=== PATIENT | male | born 1965 | race Two or more races ===

== ENCOUNTER 2016-11-26 10:12 | Emergency (ER) | payer BC ==
[2016-11-26] MEDS ORDERED: NORMAL SALINE 1000 ML 1,000 ML IV PRN (10:23)
--- NOTE | 2016-11-26 10:23 | ER Document Report ---
ED GI/ - General Chief Complaint: Nausea/Vomiting Stated Complaint: DIZZINESS Time Seen by Provider: 11/26/16 10:21 Notes: The patient is a 51-year-old male, past medical history chronic back pain, hypertension, presents with 2 days of nausea, 3 episodes of vomiting and feeling lightheaded. 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 He recently returned from [place] and has been taking hydrocodone and gabapentin he purchased from there. He is also on an unknown blood pressure medication. Patient also having right upper quadrant abdominal pain. Denies fevers, hematemesis, diarrhea, constipation, chest pain, shortness of breath, headache or worsening chronic back pain. - Related Data Allergies/Adverse Reactions: No Known Allergies Allergy (Verified 11/26/16 10:44) Home Medications: Current Home Medications Ergocalciferol (Vitamin D2) [Vitamin D] 1 tab PO DAILY 11/26/16 [History] Gabapentin [Gabapentin] 300 mg PO TID 11/26/16 [History] Lisinopril [Lisinopril] 20 mg PO DAILY 11/26/16 [History] Oxycodone HCl/Acetaminophen [Percocet 10-325 Mg Tablet] 1 each PO QID PRN [History] Pravastatin Sodium [Pravastatin Sodium] 40 mg PO DAILY 11/26/16 [History] Past Medical History - General Information source: Patient - Social History Smoking Status: Unknown if Ever Smoked Family History: Reviewed & Not Pertinent Review of Systems - Review of Systems Notes: REVIEW OF SYSTEMS: CONSTITUTIONAL: -fevers, -chills EENT: -eye pain, -difficulty swallowing, -nasal congestion CARDIOVASCULAR:-chest pain, -syncope. RESPIRATORY: -cough, -SOB GASTROINTESTINAL: +RUQ abdominal pain, +nausea, +vomiting, -diarrhea GENITOURINARY: -dysuria, -hematuria MUSCULOSKELETAL: -back pain, -neck pain SKIN: -rash or skin lesions. HEMATOLOGIC: -easy bruising or bleeding. LYMPHATIC: -swollen, enlarged glands. NEUROLOGICAL: -altered mental status or loss of consciousness, -headache, - neurologic symptoms PSYCHIATRIC: -anxiety, -depression. ALL OTHER SYSTEMS REVIEWED AND NEGATIVE. Physical Exam - Vital signs Vitals: Temp Resp BP Pulse Ox 98.6 F 10 L 117/79 99 11/26/16 10:23 11/26/16 10:23 11/26/16 10:23 11/26/16 10:23 - Notes Notes: PHYSICAL EXAMINATION: GENERAL: Well-appearing, well-nourished and in no acute distress. HEAD: Atraumatic, normocephalic. EYES: Pupils equal round and reactive to light, extraocular movements intact, sclera anicteric, conjunctiva are normal. ENT: nares patent, oropharynx clear without exudates. Moist mucous membranes. NECK: Normal range of motion, supple without lymphadenopathy LUNGS: Breath sounds clear to auscultation bilaterally and equal. No wheezes rales or rhonchi. HEART: Tachycardia. Regular rhythm ABDOMEN: Soft, mild RUQ tenderness, normoactive bowel sounds. No guarding, no rebound. No masses appreciated. EXTREMITIES: Normal range of motion, no pitting or edema. No cyanosis. NEUROLOGICAL: Cranial nerves grossly intact. Normal speech, normal gait. Normal sensory and motor exams. PSYCH: Normal mood, normal affect. SKIN: Warm, Dry, normal turgor, no rashes or lesions noted. Course - Re-evaluation Re-evalutation: Patient appears dehydrated clinically and on labs. With the right upper quadrant abdominal pain, an ultrasound was ordered, which did not show any acute abnormalities. He does have elevated LFTs, which may be related to a hepatitis that he obtained while in [place] because he was having some nausea and vomiting at that time. After 3 L of IV fluids and Zofran, patient feels much better and is able to tolerate fluids. He has an appointment with his primary care physician this week and instructed him to keep the appointment to have his symptoms rechecked and LFTs rechecked. He may need a follow-up at GI. Patient given strict return precautions and he understands. - Vital Signs Vital signs: Temp Pulse Resp BP Pulse Ox 98.6 F 26 H 104/71 97 11/26/16 10:23 11/26/16 13:25 11/26/16 13:25 11/26/16 13:25 - Laboratory Result Diagrams: 11/26/16 10:26 11/26/16 10:26 Laboratory results interpreted by me: 11/26/16 11/26/16 10:26 10:26 RBC 4.18 L Hgb 13.2 L Hct 37.8 L Band Neutrophils % 26 H Lymphocytes % (Manual) 0 L Monocytes % (Manual) 0 L Abs Lymphs (Manual) 0.1 L Abs Monocytes (Manual) 0.0 L Potassium 3.5 L Chloride 109 H Carbon Dioxide 19 L Calcium 7.7 L Direct Bilirubin 0.9 H AST 110 H ALT 126 H Alkaline Phosphatase 184 H Total Protein 5.2 L Albumin 2.7 L - Diagnostic Test Radiology reviewed: Image reviewed, Reports reviewed Radiology results interpreted by me: RUQ US: Normal RUQ Discharge - Discharge Clinical Impression: Elevated LFTs Nausea and vomiting Qualifiers: Vomiting type: unspecified Vomiting Intractability: non-intractable Qualified Code(s): R11.2 - Nausea with vomiting, unspecified Condition: Stable Disposition: HOME, SELF-CARE Additional Instructions: ABDOMINAL PAIN: There are many causes of abdominal pain. Pain can mean a serious problem requiring surgery (such as appendicitis). It can also be an innocent problem that goes away on its own (such as a viral infection). Often, time must pass to determine the cause of pain. The physician does not feel that hospitalization is necessary, at present. Things may change within the next 24 hours. Call the doctor or come back for re- examination if any problems occur, such as: (1) Pain that becomes more severe, steady, or becomes concentrated in one specific area. Also, pain that is more severe with movement or coughing. (2) Vomiting that persists or becomes more frequent. (3) Blood in the vomitus, urine, or bowel movements. Blood in the stool may have a tarry or black appearance. (4) Shaking chills or fever greater than 100 degrees F. (5) The abdomen becomes more distended or swollen. (6) Bowel movements cease. (7) Failure to improve as expected. NORMAL EXAM AND WORKUP: At this time, your examination and workup show no significant abnormality. No significant abnormal physical findings are noted. All laboratory, EKG, and imaging (x-ray, CT scans, ultrasound) studies that were ordered show no significant abnormality. Although your examination and all studies that were ordered showed no significant abnormal finding, there are no examinations and no studies that are 100% accurate. There is always the possibility that some abnormality could exist and not be detected with physical examination or within the limits and capabilities of laboratory and other studies. You should return or follow up as you were instructed on your visit today for further evaluation if your symptoms do not resolve. ANTINAUSEA MEDICATION: You have been given a medication to suppress nausea and vomiting. This type of medication can be given as a shot, pill, or suppository. It will usually last for many hours. Pills and shots usually last six to eight hours, suppositories last about 12 hours. For the typical illness, only one or two doses of the medication may be necessary. Mild lightheadedness may occur. This type of medicine can cause drowsiness. Do not drive or operate dangerous machinery while under its influence. Do not mix with alcohol. See your doctor at once if you have muscle spasms or tightness, or uncontrollable motions (particularly of the neck, mouth, or jaw). Persistent vomiting or severe lightheadedness should also be evaluated by the physician. FOLLOW-UP CARE: If you have been referred to a physician for follow-up care, call the physician s office for an appointment as you were instructed or within the next two days. If you experience worsening or a significant change in your symptoms, notify the physician immediately or return to the Emergency Department at any time for re-evaluation. Prescriptions: Ondansetron [Zofran Odt 4 mg Tablet] 1 - 2 tab PO Q4H PRN #15 tab.rapdis PRN Reason: For Nausea/Vomiting Referrals: AMISH VENTURA MD [Primary Care Provider] - Follow up as needed
[2016-11-26 11:02] LABS: HEMATOCRIT 37.8 % (37.9-51.0); HEMOGLOBIN 13.2 g/dL (13.5-17.0); HGB HCT DIFFERENCE 1.8; MEAN CORPUSCULAR HEMOGLOBIN 31.5 pg (27.0-33.4); MEAN CORPUSCULAR HGB CONC 34.8 g/dL (32.0-36.0); MEAN CORPUSCULAR VOLUME 90 fl (80-97); RED BLOOD COUNT 4.18 10^6/uL (4.35-5.55); RED CELL DISTRIBUTION WIDTH 13.3 % (11.5-14.0); WHITE BLOOD COUNT 6.3 10^3/uL (4.0-10.5)
[2016-11-26 11:30] LABS: ALANINE AMINOTRANSFERASE 126 U/L (21-72); ALBUMIN 2.7 g/dL (3.5-5.0); ALKALINE PHOSPHATASE 184 U/L (38-126); ANION GAP 10 (5-19); ASPARTATE AMINO TRANSFERASE 110 U/L (17-59); BILIRUBIN,DIRECT 0.9 mg/dL (0.0-0.4); BILIRUBIN,TOTAL 0.9 mg/dL (0.2-1.3); BLOOD UREA NITROGEN 18 mg/dL (7-20); CALCIUM 7.7 mg/dL (8.4-10.2); CARBON DIOXIDE 19 mmol/L (22-30); CHLORIDE 109 mmol/L (98-107); CREATININE RESULT 0.79 mg/dL (0.52-1.25); GLUCOSE 110 mg/dL (75-110); POTASSIUM 3.5 mmol/L (3.6-5.0); SODIUM 137.8 mmol/L (137-145); TOTAL PROTEIN 5.2 g/dL (6.3-8.2)
--- NOTE | 2016-11-26 11:41 | RADIOLOGY REPORT (SQ) ---
EXAM DESCRIPTION: U/S ABDOMEN LIMITED W/O DOP COMPLETED DATE/TIME: 11/26/2016 11:30 am REASON FOR STUDY: RUQ tenderness, nausea and vomiting COMPARISON: None. TECHNIQUE: Dynamic and static grayscale images acquired of the abdomen and recorded on PACS. Additio nal selected color Doppler and spectral images recorded. LIMITATIONS: None. FINDINGS: PANCREAS: No masses. Visualized pancreatic duct normal caliber. LIVER: No masses. Echotexture normal. LIVER VASCULATURE: Normal directional flow of the main portal vein and hepatic veins. GALLBLADDER: No stones. Normal wall thickness. No pericholecystic fluid. ULTRASOUND-DETECTED LONG'S SIGN: Negative. INTRAHEPATIC DUCTS AND COMMON DUCT: CBD and intrahepatic ducts normal caliber. No filling defects. INFERIOR VENA CAVA: Normal flow. AORTA: No aneurysm. RIGHT KIDNEY: Normal size. Normal echogenicity. No solid or suspicious masses. No hydronephrosis. No calcifications. PERITONEAL AND RIGHT PLEURAL SPACE: No ascites or effusions. OTHER: No other significant findings. IMPRESSION: NORMAL RIGHT UPPER QUADRANT ULTRASOUND. TECHNICAL DOCUMENTATION: JOB ID: [id number] [employer]- All Rights Reserved
[2016-11-26 11:48] LABS: BASOPHILS % (MANUAL) 0 % (0-2); EOSINOPHILS % (MANUAL) 0 % (0-6); LYMPHOCYTES % (MANUAL) 0 % (13-45); TOTAL CELLS COUNTED 100
[2016-11-26 11:50] LABS: RBC MORPHOLOGY COMMENT NORMO-CYTIC/CHROMIC; TOXIC GRANULATION SLIGHT; TOXIC VACUOLATION PRESENT
[2016-11-26 11:56] LABS: BAND NEUTROPHILS % (MANUAL) 26 % (3-5)
[2016-11-26 13:32] VITALS: BP 104/71
--- NOTE | 2016-11-26 16:22 | EKG REPORT ---
SEVERITY:- OTHERWISE NORMAL ECG - SINUS TACHYCARDIA : Confirmed by: Lindsey Bhatt MD 26-Nov-2016 16:21:49
[2016-11-27 11:20] LABS: PATH REVIEW PATHOLOGIST REVIEWED
== END 2016-11-26 13:38 | disposition home or self-care (01) ==
LOC: ER 10:12
DX: R11.2 Nausea with vomiting, unspecified (principal); R79.89 Other specified abnormal findings of blood chemistry; R10.11 Right upper quadrant pain; R42 Dizziness and giddiness; I10 Essential (primary) hypertension; Z79.899 Other long term (current) drug therapy
CPT/HCPCS: 93005; 99285; 96360; 96361; 36415; 85025; 80053; 80074; 76705; 93010; J7030

== ENCOUNTER 2016-11-28 03:08 | Inpatient (IN) | payer BC ==
[2016-11-28] MEDS ORDERED: NORMAL SALINE 1000 ML 1,000 ML IV ONE ×2 (03:31→10:15)
--- NOTE | 2016-11-28 03:31 | ER Document Report ---
ED General - General Mode of Arrival: Medic Information source: Patient - HPI Onset: Other - Refer to HPI Ntoes <GRICELDA SMALL - Last Filed: 11/28/16 04:13> <ELIZABETH UGALDE - Last Filed: 11/28/16 06:28> <ALBERT ROBERT Chuyita - Last Filed: 11/28/16 10:51> - General Stated Complaint: ABDOMINAL PAIN/VOMITING Time Seen by Provider: 11/28/16 03:17 Notes: Patient is a 51-year-old male presenting to the emergency department for nausea , vomiting, diarrhea and fever. Patient symptoms onset Thursday and patient was evaluated in this facility on Thursday. On Thursday the patient had a normal right upper quadrant ultrasound was given fluids. Patient states on he had some dizziness, vomiting and diarrhea. Patient states 2:00 this morning he had fever, chills, shaking and feeling shortness of breath. Patient states that he has been taking Zofran for nausea which is changing his stools from "black clumps to green." Patient was brought in via EMS with a temperature of 102.8 F. Patient was given Tylenol and Zofran. Patient did recently travel to [place] from October 16 to November 02 when he was visiting his family. Patient did see a physician in [place] who gave him a "shot" and he was also told by another physician that he had an episode of gastritis. Patient has a history of osteo arthritis, chronic back pain, and hypertension. (GRICELDA SMALL) - Related Data Allergies/Adverse Reactions: No Known Allergies Allergy (Verified 11/26/16 10:44) Past Medical History - General Information source: Patient - Social History Smoking Status: Current Every Day Smoker Chew tobacco use (# tins/day): No Smoking Education Provided: No Frequency of alcohol use: None Drug Abuse: None Family History: None Patient has suicidal ideation: No Patient has homicidal ideation: No - Past Medical History Cardiac Medical History: Reports: Hx Hypertension Musculoskeltal Medical History: Reports Hx Arthritis - OA, Reports Other - chronic back pain Surgical Hx: Negative <GRICELDA SMALL - Last Filed: 11/28/16 04:13> Review of Systems - Review of Systems Constitutional: See HPI, Chills, Diaphoresis, Fever EENT: No symptoms reported Cardiovascular: No symptoms reported Respiratory: No symptoms reported Gastrointestinal: See HPI, Abdominal pain, Diarrhea, Nausea, Vomiting, Black stools Genitourinary: No symptoms reported Male Genitourinary: No symptoms reported Musculoskeletal: See HPI, Back pain Skin: No symptoms reported Hematologic/Lymphatic: No symptoms reported Neurological/Psychological: No symptoms reported -: Yes All other systems reviewed and negative <GRICELDA SMALL - Last Filed: 11/28/16 04:13> Physical Exam - Vital signs Interpretation: Normal <STACIGRICELDA - Last Filed: 11/28/16 04:13> <ELIZABETH UGALDE - Last Filed: 11/28/16 06:28> <ALBERT ROBERT Chuyita - Last Filed: 11/28/16 10:51> - Vital signs Vitals: Resp BP Pulse Ox 41 H 112/68 95 11/28/16 03:16 11/28/16 03:16 11/28/16 03:16 - Notes Notes: GENERAL: Alert, interacts well, appears uncomfortable, diaphoretic, tachycardia. HEAD: Normocephalic, atraumatic. EYES: Appear normal. Pupils equal, round, and reactive to light. ENT: Moist mucus membranes, tongue midline. NECK: Full range of motion. Supple. Trachea midline. LUNGS: Clear to auscultation bilaterally, no wheezes, rales, or rhonchi. No respiratory distress. 96% O2 saturation on room air. HEART: Tachycardia. Regular rhythm. No murmurs, gallops, or rubs. ABDOMEN: Soft, Right-sided abdominal tenderness to palpation. Distended. Normal bowel sounds. Dull to percussion over the liver. EXTREMITIES: Moves all 4 extremities spontaneously. Normal strength. No edema. NEUROLOGICAL: Alert and oriented x3. Normal speech. No focal neurological deficits. GSC 15. PSYCH: Normal affect, normal mood. SKIN: Warm, diaphoretic, normal turgor. No rashes or lesions noted. (GRICELDA SMALL) Course - Laboratory Result Diagrams: 11/28/16 03:20 11/28/16 03:20 <GILLIANGRICELDA ESPINOZA - Last Filed: 11/28/16 04:13> - Laboratory Result Diagrams: 11/28/16 03:20 11/28/16 03:20 - Diagnostic Test Radiology reviewed: Reports reviewed - Acute abdominal series is unremarkable other than the dilated loop of jejunum - EKG Interpretation by Me EKG shows normal: Sinus rhythm, [place], Intervals, QRS Complexes, ST-T Waves Rate: Tachycardia - 128 When compared to previous EKG there are: No significant change - Transfer of Care Care transferred to following provider: Dr. Robert <ELIZABETH UGALDE - Last Filed: 11/28/16 06:28> - Laboratory Result Diagrams: 11/28/16 03:20 11/28/16 03:20 - Diagnostic Test Radiology reviewed: Image reviewed, Reports reviewed <ALBERT ROBERT - Last Filed: 11/28/16 10:51> - Re-evaluation Re-evalutation: 11/28/16 06:25: Signout from Dr. Ugalde: 51 yo male seen by myself 2 days ago. Patient initially with nausea and vomiting that was under control. However it worsened he started having worsening diarrhea and lower abdominal pain. CT abdomen and pelvis pending. 09:45 CT A/P with evidence of sigmoid diverticulitis and pericholecystic fluid around the gallbladder, which may be related to acalculus cholecystitis. A HIDA scan is recommended. Patient's RUQ ultrasound completed 2 days ago was normal. Will begin Zosyn and obtain HIDA scan. Pt's pain is under control. 11/28/16 10:[address] Elise and will admit patient as Inpatient to Telemetry for further evaluation and treatment of his sigmoid diverticulitis, right upper quadrant pain, nausea and vomiting. (ALBERT ROBERT) - Vital Signs Vital signs: Temp Pulse Resp BP Pulse Ox 97.8 F 20 109/83 99 11/28/16 07:00 11/28/16 10:01 11/28/16 10:00 11/28/16 10:01 - Laboratory Laboratory results interpreted by me: 11/28/16 11/28/16 11/28/16 03:20 03:20 04:38 RBC 3.65 L Hgb 11.4 L Hct 32.6 L Plt Count 132 L Band Neutrophils % 35 H Lymphocytes % (Manual) 3 L Abs Lymphs (Manual) 0.2 L Sodium 136.8 L Potassium 3.5 L Chloride 109 H Carbon Dioxide 19 L Glucose 145 H Calcium 7.9 L Total Bilirubin 3.0 H Direct Bilirubin 2.6 H ALT 85 H Alkaline Phosphatase 240 H Total Protein 5.0 L Albumin 2.6 L Urine Protein 30 H Urine Blood MODERATE H Urine Bilirubin MODERATE H Urine Urobilinogen 4.0 H Stool for White Cells 11/28/16 05:57 RBC Hgb Hct Plt Count Band Neutrophils % Lymphocytes % (Manual) Abs Lymphs (Manual) Sodium Potassium Chloride Carbon Dioxide Glucose Calcium Total Bilirubin Direct Bilirubin ALT Alkaline Phosphatase Total Protein Albumin Urine Protein Urine Blood Urine Bilirubin Urine Urobilinogen Stool for White Cells MODERATE H - Diagnostic Test Radiology results interpreted by me: CT A/P: IMPRESSION: 1. SIGMOID DIVERTICULITIS. A FEW BUBBLES OF GAS ARE PRESENT IN THE MESENTERIC VEIN DRAINING THE SIGMOID COLON LIKELY SECONDARY TO INFLAMMATORY PROCESS IN THE SIGMOID. NO EVIDENCE OF ABSCESS AT THIS TIME. 2. FAIRLY PROMINENT PERICHOLECYSTIC FLUID AROUND THE GALLBLADDER. RECENT ULTRASOUND SHOWED NO GALLSTONES. THIS COULD BE PASSIVE CONGESTION OR COULD BE DUE TO ACALCULOUS CHOLECYSTITIS. FOLLOW- UP HEPATOBILIARY SCAN MAY BE HELPFUL FOR FURTHER EVALUATION. 3. SLIGHTLY HETEROGENOUS APPEARANCE OF THE LIVER. THIS COULD BE DUE TO ACUTE INFLAMMATION OR UNDERLYING CHRONIC LIVER DISEASE. RECOMMEND CLINICAL CORRELATION AND FOLLOW-UP MRI OF THE LIVER MAY BE CONSIDERED. (ALBERT ROBERT) - Transfer of Care Notes: 11/28/16 06:29 Disposition is pending with stool WBCs and C. difficile pending and CT scan of abdomen pelvis with contrast is pending. (ELIZABETH UGALDE) Discharge <GRICELDA SMALL - Last Filed: 11/28/16 04:13> <ELIZABETH UGALDE - Last Filed: 11/28/16 06:28> - Discharge Admitting Provider: [facility] Ad[facility]: Telemetry <ALBERT ROBERT - Last Filed: 11/28/16 10:51> - Discharge Clinical Impression: Nausea, vomiting and diarrhea, Bandemia, Elevated direct bilirubin, Metabolic acidosis, Sigmoid diverticulitis Abdominal pain Qualifiers: Abdominal location: upper abdomen, unspecified Qualified Code(s): R10.10 - Upper abdominal pain, unspecified Anemia Qualifiers: Anemia type: unspecified type Qualified Code(s): D64.9 - Anemia, unspecified Hematuria Qualifiers: Hematuria type: other microscopic Qualified Code(s): R31.29 - Other microscopic hematuria Abdominal pain Qualifiers: Abdominal location: upper abdomen, unspecified Qualified Code(s): R10.10 - Upper abdominal pain, unspecified Condition: Stable Disposition: ADMITTED INPATIENT Scribe Attestation: 11/28/16 06:30 I personally performed the services described in the documentation, reviewed and edited the documentation which was dictated to the scribe in my presence, and it accurately records my words and actions. (ELIZABETH UGALDE) Scribe Documentation - Scribe Written by Scribe:: Mike Butt 11/28/2016 4:14 acting as scribe for :: Mike <GRICELDA SMALL - Last Filed: 11/28/16 04:13>
[2016-11-28 03:51] LABS: HEMATOCRIT 32.6 % (37.9-51.0); HEMOGLOBIN 11.4 g/dL (13.5-17.0); HGB HCT DIFFERENCE 1.6; MEAN CORPUSCULAR HEMOGLOBIN 31.2 pg (27.0-33.4); MEAN CORPUSCULAR VOLUME 89 fl (80-97); RED BLOOD COUNT 3.65 10^6/uL (4.35-5.55); RED CELL DISTRIBUTION WIDTH 13.3 % (11.5-14.0); WHITE BLOOD COUNT 5.4 10^3/uL (4.0-10.5)
[2016-11-28 04:08] LABS: ALANINE AMINOTRANSFERASE 85 U/L (21-72); ALBUMIN 2.6 g/dL (3.5-5.0); ALKALINE PHOSPHATASE 240 U/L (38-126); ANION GAP 9 (5-19); ASPARTATE AMINO TRANSFERASE 46 U/L (17-59); BILIRUBIN,DIRECT 2.6 mg/dL (0.0-0.4); BLOOD UREA NITROGEN 14 mg/dL (7-20); CALCIUM 7.9 mg/dL (8.4-10.2); CARBON DIOXIDE 19 mmol/L (22-30); CHLORIDE 109 mmol/L (98-107); CREATINE KINASE 108 U/L (55-170); CREATININE RESULT 0.72 mg/dL (0.52-1.25); GLUCOSE 145 mg/dL (75-110); LIPASE 76.6 U/L (23-300); MAGNESIUM 1.6 mg/dL (1.6-2.3); POTASSIUM 3.5 mmol/L (3.6-5.0); SODIUM 136.8 mmol/L (137-145)
[2016-11-28 04:13] LABS: BAND NEUTROPHILS % (MANUAL) 35 % (3-5); BASOPHILS % (MANUAL) 0 % (0-2); EOSINOPHILS % (MANUAL) 0 % (0-6); LYMPHOCYTES % (MANUAL) 3 % (13-45); TOTAL CELLS COUNTED 100
[2016-11-28 04:17] LABS: POIKILOCYTOSIS SLIGHT; SCHISTOCYTES SLIGHT; TOXIC GRANULATION SLIGHT; TOXIC VACUOLATION PRESENT
[2016-11-28] MEDS ORDERED: VANCOMYCIN HCL INJ 1000 MG VIAL IV ONE (04:29)
[2016-11-28 05:05] LABS: APPEARANCE,URINE CLEAR; BILIRUBIN,URINE MODERATE (NEGATIVE); GLUCOSE, URINE NEGATIVE (NEGATIVE); KETONES,URINE NEGATIVE (NEGATIVE); LEUKOCYTE ESTERASE,URINE NEGATIVE (NEGATIVE); NITRITE,URINE NEGATIVE (NEGATIVE); PROTEIN,URINE 30 mg/dL (NEGATIVE); URINE SPECIFIC GRAVITY 1.015
--- NOTE | 2016-11-28 05:18 | RADIOLOGY REPORT (SQ) ---
EXAM DESCRIPTION: ACUTE ABDOMEN SERIES COMPLETED DATE/TIME: 11/28/2016 4:53 am REASON FOR STUDY: N,V,D, FEVER, RIGHT ABD PAIN COMPARISON: Ultrasound, same day. NUMBER OF VIEWS: Three views. TECHNIQUE: Frontal chest, supine abdomen and upright/decubitus abdomen radiographic images acquired. LIMITATIONS: None. FINDINGS: CHEST: Lungs clear of infiltrates. Pulmonary vascular congestion. FREE AIR: None. No abnormal gas collections. BOWEL GAS PATTERN: Nonobstructive pattern. Single gas dilated jejunal loop measures 3.2 cm in diamet er. CALCIFICATIONS: No suspicious calcifications. HARDWARE: None in the abdomen. SOFT TISSUES: No gross mass or suggestion of organomegaly. BONES: No acute fracture. No worrisome bone lesions. Mild lumbar dextro convexity. Mild lumbar dis c desiccation. OTHER: No other significant finding. IMPRESSION: NO RADIOGRAPHIC EVIDENCE FOR ACUTE ABDOMINAL DISEASE. TECHNICAL DOCUMENTATION: JOB ID: [id number] [employer]- All Rights Reserved
[2016-11-28] MEDS ORDERED: MORPHINE SULFATE 10 MG/ML INJ IV ONE ×2 (05:59→08:46)
[2016-11-28] MEDS ORDERED: ONDANSETRON HCL INJ/PF 4 MG/2 ML SDV IV ONE (05:59)
--- NOTE | 2016-11-28 08:53 | RADIOLOGY REPORT (SQ) ---
EXAM DESCRIPTION: CT ABD/PELVIS WITH IV ORAL COMPLETED DATE/TIME: 11/28/2016 8:28 am REASON FOR STUDY: DILATED LOOP JEJUNUM, FEVER, 35%BANDS, N,V,D COMPARISON: Abdominal ultrasound dated 11/26/2016. Abdominal x-ray dated 11/28/2016. TECHNIQUE: CT scan of the abdomen and pelvis performed using helical scanning technique with dynamic intravenous contrast injection. No oral contrast. Images reviewed with lung, soft tissue, and bone windows. Reconstructed coronal and sagittal MPR images reviewed. Delayed images for evaluation of the urinary system also acquired. All images stored on PACS. All CT scanners at this facility use dose modulation, iterative reconstruction, and/or weight based d osing when appropriate to reduce radiation dose to as low as reasonably achievable (ALARA). [facility]: Dose Right [facility]: CareDose [facility]: Dose Right [facility]: Teradose 4D [facility]: [email or web address] CONTRAST TYPE AND DOSE: contrast/concentration: Isovue 370.00 mg/ml; Total Contrast Delivered: 78.0 ml; Total Saline Delivered: 67.0 ml RENAL FUNCTION: BUN 14 creatinine 0.72. RADIATION DOSE: Up-to-date CT equipment and radiation dose reduction techniques were employed. CTDIv ol: 6.2 - 7.1 mGy. DLP: 653 mGy-cm.. LIMITATIONS: None. FINDINGS: LOWER CHEST: No significant findings. No nodules or infiltrates. LIVER: Normal size. Slightly heterogenous appearance of the liver. No focal masses. No dilated kayla ts. SPLEEN: Normal size. No focal lesions. PANCREAS: No masses. No significant calcifications. No adjacent inflammation or peripancreatic fluid collections. Pancreatic duct not dilated. GALLBLADDER: No identified stones by CT criteria. Pericholecystic fluid is present. ADRENAL GLANDS: No significant masses or asymmetry. RIGHT KIDNEY AND URETER: No solid masses. No significant calcifications. No hydronephrosis or hyd roureter. LEFT KIDNEY AND URETER: No solid masses. No significant calcifications. No hydronephrosis or hydr oureter. AORTA AND VESSELS: No aneurysm. No dissection. Renal arteries, SMA, celiac without stenosis. RETROPERITONEUM: No retroperitoneal adenopathy, hemorrhage or masses. BOWEL AND PERITONEAL CAVITY: Contrast in the small bowel and colon. Diverticuli in the descending an d sigmoid colon with mild inflammation in the soft tissues adjacent to the sigmoid colon. There are a few bubbles of gas in the mesenteric vein draining the sigmoid colon. No abnormal fluid collection s. No free fluid or peritoneal masses. APPENDIX: Normal. PELVIS: No mass. No free fluid. Normal bladder. ABDOMINAL WALL: No masses. No hernias. BONES: No significant or acute findings. OTHER: No other significant finding. IMPRESSION: 1. SIGMOID DIVERTICULITIS. A FEW BUBBLES OF GAS ARE PRESENT IN THE MESENTERIC VEIN DRAINING THE SIGM OID COLON LIKELY SECONDARY TO INFLAMMATORY PROCESS IN THE SIGMOID. NO EVIDENCE OF ABSCESS AT THIS TI ME. 2. FAIRLY PROMINENT PERICHOLECYSTIC FLUID AROUND THE GALLBLADDER. RECENT ULTRASOUND SHOWED NO GALLST ONES. THIS COULD BE PASSIVE CONGESTION OR COULD BE DUE TO ACALCULOUS CHOLECYSTITIS. FOLLOW-UP HEPAT OBILIARY SCAN MAY BE HELPFUL FOR FURTHER EVALUATION. 3. SLIGHTLY HETEROGENOUS APPEARANCE OF THE LIVER. THIS COULD BE DUE TO ACUTE INFLAMMATION OR UNDERLY ING CHRONIC LIVER DISEASE. RECOMMEND CLINICAL CORRELATION AND FOLLOW-UP MRI OF THE LIVER MAY BE CONS IDERED. TECHNICAL DOCUMENTATION: JOB ID: [id number] Quality ID # [id number]: Final reports with documentation of one or more dose reduction techniques (e.g., Au tomated exposure control, adjustment of the mA and/or kV according to patient size, use of iterative reconstruction technique) 2010 [employer]- All Rights Reserved
[2016-11-28] MEDS ORDERED: PIPERACILLIN/TAZOBACTAM 3.375 GM VIAL IV ONE (10:15)
[2016-11-28] MEDS ORDERED: KETOROLAC TROMETHAMINE INJ/PF 30 MG/1 ML SDV IV ONE (10:56)
[2016-11-28] MEDS ORDERED: KETOROLAC TROMETHAMINE INJ/PF 30 MG/1 ML SDV ONE (11:00)
[2016-11-28] MEDS ORDERED: IPRATROPIUM/ALBUTEROL 0.5-2.5 MG/3 ML AMPUL NEB ONE ×2 (11:03→12:03)
[2016-11-28] MEDS ORDERED: METHYLPREDNISOLONE INJ 125 MG/2 ML SDV ONE (11:08)
[2016-11-28] MEDS ORDERED: EPINEPHRINE INJ/PF 1 MG/1 ML AMPULE ONE (11:08)
--- NOTE | 2016-11-28 11:28 | RADIOLOGY REPORT (SQ) ---
EXAM DESCRIPTION: CHEST SINGLE VIEW COMPLETED DATE/TIME: 11/28/2016 11:16 am REASON FOR STUDY: er 18 chest pain COMPARISON: None. EXAM PARAMETERS: NUMBER OF VIEWS: One view. TECHNIQUE: Single frontal radiographic view of the chest acquired. RADIATION DOSE: NA LIMITATIONS: None. FINDINGS: LUNGS AND PLEURA: No opacities, masses or pneumothorax. No pleural effusion. MEDIASTINUM AND HILAR STRUCTURES: No masses. Contour normal. HEART AND VASCULAR STRUCTURES: Heart normal in size. Normal vasculature. BONES: No acute findings. HARDWARE: None in the chest. OTHER: No other significant finding. IMPRESSION: NO ACUTE RADIOGRAPHIC FINDING IN THE CHEST. TECHNICAL DOCUMENTATION: JOB ID: [id number]
[2016-11-28] MEDS ORDERED: METHYLPREDNISOLONE INJ 125 MG/2 ML SDV IV ONE (12:03)
--- NOTE | 2016-11-28 12:15 | EKG REPORT ---
SEVERITY:- ABNORMAL ECG - SINUS TACHYCARDIA VERSUS SVT.BASELINE ARTIFACT.REPEAT EKG : Confirmed by: Lindsey Bhatt MD 28-Nov-2016 12:15:28
--- NOTE | 2016-11-28 12:16 | EKG REPORT ---
SEVERITY:- BORDERLINE ECG - SINUS TACHYCARDIA CONSIDER RIGHT VENTRICULAR HYPERTROPHY : Confirmed by: Lindsey Bhatt MD 28-Nov-2016 12:15:38
--- NOTE | 2016-11-28 12:55 | RADIOLOGY REPORT (SQ) ---
EXAM DESCRIPTION: CT ABD/PELVIS NO ORAL OR IV COMPLETED DATE/TIME: 11/28/2016 11:36 am REASON FOR STUDY: worsening severe pain, tachycardia COMPARISON: 11/28/2016. TECHNIQUE: CT scan of the abdomen and pelvis performed without intravenous or oral contrast. Images reviewed with lung, soft tissue, and bone windows. Reconstructed coronal and sagittal MPR images revi ewed. All images stored on PACS. All CT scanners at this facility use dose modulation, iterative reconstruction, and/or weight based d osing when appropriate to reduce radiation dose to as low as reasonably achievable (ALARA). [facility]: Dose Right [facility]: CareDose [facility]: Dose Right [facility]: Teradose 4D [facility]: Smart [employer] RADIATION DOSE: Up-to-date CT equipment and radiation dose reduction techniques were employed. CTDIv ol: 7.0 mGy. DLP: 360 mGy-cm.mGy. LIMITATIONS: None. FINDINGS: LOWER CHEST: No significant findings. No nodules or infiltrates. NON-CONTRASTED LIVER, SPLEEN, ADRENALS: Evaluation limited by lack of IV contrast. No identified sign ificant masses. There is a small amount of portal venous gas in the left lobe of the liver. PANCREAS: No masses. No peripancreatic inflammatory changes. GALLBLADDER: Contracted gallbladder with ill-defined wall thickening. RIGHT KIDNEY AND URETER: No suspicious masses. Assessment limited by lack of IV contrast. No signif icant calcifications. No hydronephrosis or hydroureter. LEFT KIDNEY AND URETER: No suspicious masses. Assessment limited by lack of IV contrast. No signifi cant calcifications. No hydronephrosis or hydroureter. AORTA AND RETROPERITONEUM: No aneurysm. No retroperitoneal masses or adenopathy. BOWEL AND PERITONEAL CAVITY: Again seen are numerous diverticuli in the descending and sigmoid colon with mild focal inflammation in the sigmoid colon. Also again seen is gas in the mesenteric vein noemi ining the sigmoid colon. No free air. APPENDIX: Normal. PELVIS, BLADDER, AND ABDOMINAL WALL:No abnormal masses. No free fluid. Bladder normal. BONES: No significant findings. OTHER: No other significant finding. IMPRESSION: 1. SIGMOID DIVERTICULITIS. SMALL AMOUNT OF GAS IS PRESENT IN THE MESENTERIC VEIN DRAINING THE SIGMOI D COLON, SIMILAR TO THE PREVIOUS STUDY, LIKELY DUE TO BOWEL INFLAMMATION/INFECTION. ALSO SMALL AMOUN T OF PORTAL VENOUS GAS IN THE LIVER RELATED TO THIS FINDING. NO FREE AIR OR OTHER ACUTE CHANGES. 2. CONTRACTED GALLBLADDER WITH GALLBLADDER WALL THICKENING. THE PATIENT IS SCHEDULED FOR HEPATOBILIA RY SCAN TO DETERMINE IF THERE MAY BE FINDINGS TO INDICATE CHOLECYSTITIS. 3. NO OTHER SIGNIFICANT OR ACUTE PROCESS IN THE ABDOMEN OR PELVIS. TECHNICAL DOCUMENTATION: JOB ID: [id number] Quality ID # [id number]: Final reports with documentation of one or more dose reduction techniques (e.g., Au tomated exposure control, adjustment of the mA and/or kV according to patient size, use of iterative reconstruction technique) 2010 [employer]- All Rights Reserved
[2016-11-28] MEDS ORDERED: DEXTROSE 50%-WATER 25 GM/50 ML DISP.SYRIN IV PRN ×2 (14:46)
[2016-11-28] MEDS ORDERED: ACETAMINOPHEN 325 MG TABLET PO PRN (14:46)
[2016-11-28] MEDS ORDERED: DEXTROSE 40% GEL 15 GM TUBE PO PRN ×2 (14:46)
[2016-11-28] MEDS ORDERED: GLUCAGON,HUMAN RECOMB 1 MG INJ SUBCUT PRN (14:46)
[2016-11-28] MEDS ORDERED: ONDANSETRON HCL INJ/PF 4 MG/2 ML SDV IV PRN (14:52)
--- NOTE | 2016-11-28 15:16 | PDOC H&P ---
History of Present Illness Admission Date/PCP: 11/28/16 10:56 Patient complains of: Abdominal pain History of Present Illness: MONAE SORTO is a 51 year old male, with history of hypertension and osteoarthritis who recently traveled to [place] attending his son's graduation late last month presents to the hospital because of nausea vomiting and abdominal pain 4 days duration. Patient reports while in [place] patient had an episode of gastritis where he was treated with injectable medications and was discharged home. He did not have any diarrhea at this time. He denies intake of raw meat or vegetables. Likewise he denies being exposed to someone sick with her diarrhea. He also had no history of melena hematochezia or hematemesis at that time. Patient went back to the [place] early this month and went back to routine work where he started to develop abdominal pain with associated nausea vomiting and diarrhea 4 days duration. There is associated chills and fever as well. No one sick with diarrhea at home. There was no intake of leftover foods. Patient denies being on antibiotic recently. He denies any noticeable blood. The patient symptoms got worse today and therefore presents to the emergency room order CT of the abdomen and pelvis revealed diverticulitis. Patient received a dose of vancomycin intravenously thinking it was Clostridium difficile colitis. No other antibiotics were administered. Reportedly the patient developed shortness of breath but on questioning the patient prior to the episode he had severe abdominal pain and cramps with associated nausea and gagging and eventually started getting short of breath. Patient was noted to have some wheezing and therefore thought he was having allergic reaction. He was given nebulizers and steroids and his symptoms resolved. He was then referred for admission. Past Medical History Past Medical History: Medication reconciliation pending verification from the patient's pharmacist. Cardiac Medical History: Reports: Hypertension Musculoskeltal Medical History: Reports: Arthritis - OA, Other - chronic back pain Past Surgical History Past Surgical History: Reports: None Social History Information Source: Patient Smoking Status: Current Every Day Smoker Hx Recreational Drug Use: No Drugs: None Family History Family History: Arthritis - Arthritis, Other - Gastrointestinal conditions Parental Family History Reviewed: Yes Children Family History Reviewed: Yes Sibling(s) Family History Reviewed.: Yes Medication/Allergy Home Medications: Unobtainable [Unobtainable] 11/28/16 Allergies/Adverse Reactions: No Known Allergies Allergy (Verified 11/26/16 10:44) Review of Systems Constitutional: PRESENT: chills, fever(s). ABSENT: headache(s), weight gain, weight loss Eyes: ABSENT: visual disturbances Ears: ABSENT: hearing changes Nose, Mouth, and Throat: ABSENT: mouth pain, sore throat Cardiovascular: ABSENT: chest pain, dyspnea on exertion, edema, orthropnea, palpitations Respiratory: ABSENT: cough, dyspnea, hemoptysis, sputum Gastrointestinal: PRESENT: abdominal pain, diarrhea, nausea, vomiting. ABSENT: coffee ground emesis, constipation, hematemesis, hematochezia, melena Genitourinary: ABSENT: difficulty urinating, dysuria, hematuria Musculoskeletal: ABSENT: back pain, joint swelling Integumentary: ABSENT: pruritus, rash, wounds Neurological: ABSENT: abnormal gait, abnormal speech, confusion, dizziness, focal weakness, syncope Psychiatric: ABSENT: anxiety, depression, homidical ideation, suicidal ideation Endocrine: ABSENT: cold intolerance, heat intolerance, polydipsia, polyuria Hematologic/Lymphatic: ABSENT: easy bleeding, easy bruising Physical Exam Vital Signs: Temp Pulse Resp BP Pulse Ox 97.4 F 30 H 102/62 96 11/28/16 10:48 11/28/16 12:13 11/28/16 12:13 11/28/16 12:13 General appearance: PRESENT: no acute distress, obese - Overweight Head exam: PRESENT: atraumatic, normocephalic Eye exam: PRESENT: conjunctiva pink, EOMI, PERRLA. ABSENT: scleral icterus Ear exam: PRESENT: normal external ear exam. ABSENT: drainage Mouth exam: PRESENT: moist, neck supple, tongue midline Throat exam: ABSENT: post pharyngeal erythema, tonsillar erythema Neck exam: ABSENT: carotid bruit, full ROM, JVD, lymphadenopathy, thyromegaly Respiratory exam: PRESENT: clear to auscultation tori. ABSENT: rales, rhonchi, wheezes Cardiovascular exam: PRESENT: RRR. ABSENT: diastolic murmur, rubs, systolic murmur Pulses: PRESENT: normal dorsalis pedis pul Vascular exam: PRESENT: normal capillary refill GI/Abdominal exam: PRESENT: distended, hyperactive bowel sounds, soft, tenderness - Periumbilical area. ABSENT: guarding, mass - Exam is limited due to abdominal discomfort, organolmegaly - Exam is limited due to abdominal discomfort, rebound Rectal exam: PRESENT: deferred Extremities exam: PRESENT: full ROM. ABSENT: calf tenderness, clubbing, pedal edema Neurological exam: PRESENT: alert, awake, oriented to person, oriented to place , oriented to time, oriented to situation, CN II-XII grossly intact. ABSENT: motor sensory deficit Psychiatric exam: PRESENT: appropriate affect, normal mood. ABSENT: homicidal ideation, suicidal ideation Skin exam: PRESENT: dry, intact, warm. ABSENT: cyanosis, rash Results Impressions: Chest X-Ray 11/28/16 00:00 IMPRESSION: NO ACUTE RADIOGRAPHIC FINDING IN THE CHEST. Acute Abdomen Series 11/28/16 03:30 IMPRESSION: NO RADIOGRAPHIC EVIDENCE FOR ACUTE ABDOMINAL DISEASE. Abdomen/Pelvis CT 11/28/16 11:16 IMPRESSION: 1. SIGMOID DIVERTICULITIS. SMALL AMOUNT OF GAS IS PRESENT IN THE MESENTERIC VEIN DRAINING THE SIGMOID COLON, SIMILAR TO THE PREVIOUS STUDY, LIKELY DUE TO BOWEL INFLAMMATION/INFECTION. ALSO SMALL AMOUNT OF PORTAL VENOUS GAS IN THE LIVER RELATED TO THIS FINDING. NO FREE AIR OR OTHER ACUTE CHANGES. 2. CONTRACTED GALLBLADDER WITH GALLBLADDER WALL THICKENING. THE PATIENT IS SCHEDULED FOR HEPATOBILIARY SCAN TO DETERMINE IF THERE MAY BE FINDINGS TO INDICATE CHOLECYSTITIS. 3. NO OTHER SIGNIFICANT OR ACUTE PROCESS IN THE ABDOMEN OR PELVIS. Assessment & Plan - Diagnosis (1) Sigmoid diverticulitis Is this a current diagnosis for this admission?: Yes (2) Hypokalemia Is this a current diagnosis for this admission?: Yes (3) Hypoglycemia Is this a current diagnosis for this admission?: Yes (4) Thrombocytopenia Is this a current diagnosis for this admission?: Yes (5) Metabolic acidosis Is this a current diagnosis for this admission?: Yes (6) Elevated LFTs Is this a current diagnosis for this admission?: Yes (7) Essential hypertension Is this a current diagnosis for this admission?: Yes (8) Osteoarthritis Qualifiers: Osteoarthritis location: unspecified site Osteoarthritis type: unspecified Qualified Code(s): M19.90 - Unspecified osteoarthritis, unspecified site Is this a current diagnosis for this admission?: Yes - Time Time Spent: 50 to 70 Minutes - Inpatient Certification Based on my medical assessment, after consideration of the patient's comorbidities, presenting symptoms, or acuity I expect that the services needed warrant INPATIENT care.: Yes I certify that my determination is in accordance with my understanding of Medicare's requirements for reasonable and necessary INPATIENT services [42 CFR 412.3e].: Yes Medical Necessity: Significant Comorbidiites Make Outpatient Treatment Too Risky , Need Close Monitoring Due to Risk of Patient Decompensation, Need For IV Fluids, Need for Pain Control, Need for IV Antibiotics, Risk of Complication if Not Cared For in Hospital 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 I will keep the patient n.p.o. In the meantime HIDA scan is obtained in the emergency room and results pending. We will begin intravenous ciprofloxacin and Flagyl. We will obtain stool culture as well as ova and parasites, and routine blood and urine cultures. We will consult surgery for the questionable portal venous gas. In the meantime his lactic acid level is normal, we will do follow-up KUBs. We will obtain a hepatitis panel and replace his electrolytes. DVT prophylaxis with Lovenox will be placed. further testing depends on initial evaluation and per specialty recommendations outlined above.
[2016-11-28] MEDS ORDERED: METRONIDAZOLE 500 MG/NS RTU 100 ML IV ONE (15:30)
[2016-11-28] MEDS: NORMAL SALINE 1000 ML 1,000 ML IV PRN ×2 (15:47→16:44)
[2016-11-28] MEDS ORDERED: CIPROFLOXACIN 400 MG/D5W RTU 400 MG/200 ML RTUPB IV ONE (16:00)
--- NOTE | 2016-11-28 16:09 | RADIOLOGY REPORT (SQ) ---
EXAM DESCRIPTION: NM HIDA SCAN COMPLETED DATE/TIME: 11/28/2016 3:50 pm REASON FOR STUDY: RUQ pain, abnormal CT COMPARISON: None. RADIONUCLIDE AND DOSE: DOSAGE RADIONUCLIDE: 5 millicuries Tc99m Mebrofenin. DOSAGE MORPHINE: Not required. The route of agent administration: Intravenous TECHNIQUE: Serial imaging right upper quadrant up to 150 minutes following injection of radionuclide . Patient imaged AP and Right Lateral. LIMITATIONS: None. FINDINGS: LIVER: Normal visualization without areas of photopenia. INTRA-HEPATIC BILE DUCTS: Not seen. COMMON BILE DUCT: Not seen. GALLBLADDER: There is gradual accumulation of activity in the region the gallbladder. OTHER: No activity is seen in the small bowel at 2.5 hours. IMPRESSION: The findings are concerning for obstruction of the common bile duct. Clinical correlati on. TECHNICAL DOCUMENTATION: JOB ID: [id number] [employer]- All Rights Reserved
[2016-11-28 16:21] LABS: APPEARANCE,URINE SLIGHTLY-CLOUDY; BILIRUBIN,URINE MODERATE (NEGATIVE); GLUCOSE, URINE NEGATIVE (NEGATIVE); KETONES,URINE NEGATIVE (NEGATIVE); LEUKOCYTE ESTERASE,URINE NEGATIVE (NEGATIVE); NITRITE,URINE NEGATIVE (NEGATIVE); PROTEIN,URINE 100 mg/dL (NEGATIVE); URINE SPECIFIC GRAVITY 1.056
[2016-11-28] MEDS: POTASSI CL 20 MEQ/50 ML RIDER 20 MEQ/50 ML RTUPB IV SCH ×2 (16:42→19:02)
[2016-11-28 16:45] LABS: PARTIAL THROMBOPLASTIN TIME 40.4 SEC (23.5-35.8)
[2016-11-28] MEDS ORDERED: HYDROMORPHONE HCL INJ/PF 2 MG/ML AMPULE IV PRN (17:27)
[2016-11-28] MEDS ORDERED: NORMAL SALINE 500 ML IV ONE (17:30)
[2016-11-28] MEDS ORDERED: ENOXAPARIN SODIUM INJ 40 MG/0.4 ML DISP.SYRIN SUBCUT ONE (17:30)
--- NOTE | 2016-11-28 19:44 | CONSULTATION REPORT E ---
Consultation Report NAME: MONAE SORTO : 1965 AGE: 51Y DATE: 11/28/2016 535 A TO: CAMILA WEBER M.D. FROM: Requesting Physician REASON FOR CONSULTATION: Abdominal pain with abnormal CAT scan and HIDA scan. HISTORY OF PRESENT ILLNESS: This is a 51-year-old male who came back from [place] about 2 weeks ago. About 6 days ago after a fatty meal he complained of severe right upper quadrant pains with nausea. The pains somewhat subsided. The next day he went to a family outing where he ate again fried food and developed again right upper quadrant pain with nausea. The pains subsided and went to work Thursday. 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 Thursday he had more pains in the right upper quadrant and above the umbilical area and this time with diarrhea and fever and chills. The symptoms kind of subsided and the next day, Thursday, again had severe pains and nausea and finally had another episode early this morning and subsequently went to the emergency room where a CAT scan of the abdomen initially showed sigmoid diverticulitis with some gas in the mesentery areas. The gallbladder showed no stones but the bile ducts are somewhat dilated.A Hida scan was done which showed filling og gall bladder but nonviz distal indicating obstruction of CBD. I asked the radiologist at [place] to review the films. He thinks patient has sigmoid diverticulitis and obstructed CBD. He suggested doing an MRCP.He also thinks most of the xray findings could be explained by Cholangitis that's why he suggested MRCP which i agree. I did examine the patient and it seems like his pains are mostly in the right upper quadrant and epigastric areas but denies any tenderness in the suprapubic or both lower quadrants. He did have a smaller dose of morphine evidence technician but none since. He had a fever of 102 when he came to the emergency room with some nausea. 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 I have also talked to Dr. Elise , the patient's hospitalist regarding this matter. So we will wait what the MRCP shows. PAST MEDICAL HISTORY: Unremarkable except for hypertension. He claimed he had episode of gastritis a couple of years ago where he had an upper endoscopy. PAST SURGICAL HISTORY: No previous surgery in the past. ALLERGIES: No known. SOCIAL HISTORY: Smokes about a pack a day. He used to drink on weekends but stopped about 10 years ago. He denies drug use. FAMILY HISTORY: Noncontributory. REVIEW OF SYSTEMS: As in HPI. Abdominal pains and nausea and 1 episode of vomiting. Has diarrhea, appears to be highly colored according to the patient, no dysuria, however. Has fever and chills. No headaches or shortness of breath or chest pains. No visual or hearing problems. No balance problems. No easy bruisability. Rest of the systems are unremarkable. PHYSICAL EXAMINATION: GENERAL APPEARANCE: Well-developed, well-nourished 51-year-old male, alert and oriented, complaining of abdominal pains mostly in the right upper quadrant. Alert and oriented x3, slightly overweight. VITAL SIGNS: Heart rate is 118 per minute and he is about 5 feet 5 inches and weighs 71 kg. Blood pressure 102/62, pulse oximetry 96% on room air, respiratory rate about 30 per minute. HEENT: Head is atraumatic, normocephalic. Conjunctivae pink. No definite icteric sclerae. Ears: Normal external exam. Mouth moist. Neck supple. Throat: No pharyngeal erythema. Neck with no adenopathy. RESPIRATORY: Lungs are clear to auscultation. CARDIAC: Showed tachycardia sinus. PULSES: Normal dorsalis pedis artery pulses. VASCULAR: Normal capillary refill. GASTROINTESTINAL: Abdomen just slightly distended, tender in the right upper quadrant and epigastric area. No definite tenderness in suprapubic or both lower quadrants. EXTREMITIES: Full range of motion. NEUROLOGIC: The patient is alert and oriented x3. PSYCHIATRIC: Appropriate affect. SKIN: Dry and warm. IMPRESSION: 1. Common bile duct obstruction, possibly causing cholangitis. 2. Sigmoid diverticulitis. 3. Hypertension. PLAN: 1. IV antibiotics. 2. Hydration. 3. Stat MRCP. 4. If MRCP shows bile duct obstruction, the patient will need to be transferred to a tertiary facility, since we do not have any GI on-call today or the weekend. DICTATING PHYSICIAN: CAMILA WEBER M.D. [id number] PHY#: [id number] ID: [id number] JOB#: [id number] ACCT: [id number] cc:CAMILA WEBER M.D. > MTDD
[2016-11-28] MEDS ORDERED: NORMAL SALINE 1000 ML 500 ML IV ONE (19:58)
[2016-11-28 21:05] LABS: ALANINE AMINOTRANSFERASE 74 U/L (21-72); ALBUMIN 2.6 g/dL (3.5-5.0); ALKALINE PHOSPHATASE 216 U/L (38-126); ANION GAP 12 (5-19); ASPARTATE AMINO TRANSFERASE 49 U/L (17-59); BILIRUBIN,DIRECT 4.2 mg/dL (0.0-0.4); BILIRUBIN,TOTAL 4.7 mg/dL (0.2-1.3); BLOOD UREA NITROGEN 18 mg/dL (7-20); CALCIUM 7.3 mg/dL (8.4-10.2); CARBON DIOXIDE 19 mmol/L (22-30); CHLORIDE 107 mmol/L (98-107); CREATININE RESULT 0.82 mg/dL (0.52-1.25); GLUCOSE 153 mg/dL (75-110); MAGNESIUM 1.7 mg/dL (1.6-2.3); POTASSIUM 4.1 mmol/L (3.6-5.0); SODIUM 137.6 mmol/L (137-145); TOTAL PROTEIN 5.1 g/dL (6.3-8.2)
[2016-11-28] MEDS: FAMOTIDINE INJ/PF 20 MG/2 ML SDV IV SCH (22:21)
[2016-11-28] MEDS: HYDROMORPHONE HCL INJ/PF 2 MG/ML AMPULE IV PRN (22:21)
[2016-11-28] MEDS: METRONIDAZOLE 500 MG/NS RTU 100 ML IV SCH (22:22)
--- NOTE | 2016-11-28 22:22 | RADIOLOGY REPORT (SQ) ---
EXAM DESCRIPTION: MRI ABDOMEN WITHOUT COMPLETED DATE/TIME: 11/28/2016 7:25 pm REASON FOR STUDY: Abnormal Hida scan. Gallbladder uptake but non dis COMPARISON: Correlation made to CT 11/28/2016 and hepatobiliary scan from 11/28/2016. TECHNIQUE: Noncontrast MRCP. Source and MIP images reviewed. LIMITATIONS: None. FINDINGS: GALLBLADDER: Again noted is marked circumferential bladder wall thickening/edema with mild pericholecystic fluid. INTRAHEPATIC DUCTS: Stable mild intrahepatic biliary ductal dilatation with very ductal edema. EXTRAHEPATIC DUCTS: Common duct is normal caliber. No dilatation of the pancreatic duct. No ductal filling defects noted. PANCREAS: Generally homogeneous, no gross mass or significant signal alteration. No surrounding infl ammatory changes or fluid. Pancreatic duct is normal. LIVER, SPLEEN, KIDNEYS, ADRENALS: No significant abnormality. VESSELS: No evidence of aneurysm. Grossly appropriate flow voids in the major vascular structures. LUNG BASES: Grossly clear. OTHER: No other significant finding. IMPRESSION: STABLE MILD INTRAHEPATIC BILIARY DUCT DILATATION WITH PERIODONTAL EDEMA SUGGESTIVE OF CH OLANGITIS GIVEN FINDINGS ON PRIOR HEPATOBILIARY SCAN. NO RETAINED STONE OR SIGNIFICANT DILATATION OF THE COMMON BILE DUCT IDENTIFIED. DIFFERENTIAL INCLUDES OCCULT CHOLANGIO CARCINOMA AT THE [place] HEPA TIS WHICH MAY ONLY BE VISIBLE WITH DELAYED CONTRAST-ENHANCED IMAGING. STABLE MARKED CIRCUMFERENTIAL GALLBLADDER WALL THICKENING/EDEMA WITH MILD PERICHOLECYSTIC FLUID PRESU MABLY REPRESENTING CHRONIC CHOLECYSTITIS GIVEN PRIOR IMAGING FINDINGS. TECHNICAL DOCUMENTATION: JOB ID: [id number] [employer]- All Rights Reserved
[2016-11-28 23:08] LABS: HEMATOCRIT 31.5 % (37.9-51.0); HEMOGLOBIN 10.9 g/dL (13.5-17.0); HGB HCT DIFFERENCE 1.2; MEAN CORPUSCULAR HEMOGLOBIN 31.3 pg (27.0-33.4); MEAN CORPUSCULAR HGB CONC 34.7 g/dL (32.0-36.0); MEAN CORPUSCULAR VOLUME 90 fl (80-97); RED CELL DISTRIBUTION WIDTH 13.9 % (11.5-14.0)
[2016-11-28 23:09] LABS: WHITE BLOOD COUNT 13.7 10^3/uL (4.0-10.5)
[2016-11-28 23:14] LABS: BAND NEUTROPHILS % (MANUAL) 17 % (3-5); BASOPHILS % (MANUAL) 0 % (0-2); EOSINOPHILS % (MANUAL) 0 % (0-6); LYMPHOCYTES % (MANUAL) 4 % (13-45); TOTAL CELLS COUNTED 100
[2016-11-28 23:16] LABS: BURR CELLS SLIGHT; POIKILOCYTOSIS SLIGHT; POLYCHROMASIA SLIGHT; TOXIC GRANULATION SLIGHT; TOXIC VACUOLATION PRESENT
[2016-11-29] MEDS: NORMAL SALINE 1000 ML 1,000 ML IV PRN ×2 (00:11→17:42)
[2016-11-29] MEDS: METRONIDAZOLE 500 MG/NS RTU 100 ML IV SCH ×4 (03:51→21:40)
[2016-11-29] MEDS: CIPROFLOXACIN 400 MG/D5W RTU 200 ML IV SCH ×2 (05:12→17:41)
[2016-11-29] MEDS: HYDROMORPHONE HCL INJ/PF 2 MG/ML AMPULE IV PRN ×4 (05:12→23:02)
[2016-11-29 05:23] LABS: HEMATOCRIT 31.2 % (37.9-51.0); HEMOGLOBIN 10.7 g/dL (13.5-17.0); HGB HCT DIFFERENCE 0.9; MEAN CORPUSCULAR HGB CONC 34.2 g/dL (32.0-36.0); MEAN CORPUSCULAR VOLUME 91 fl (80-97); RED BLOOD COUNT 3.44 10^6/uL (4.35-5.55); RED CELL DISTRIBUTION WIDTH 13.8 % (11.5-14.0); WHITE BLOOD COUNT 13.1 10^3/uL (4.0-10.5)
[2016-11-29 05:32] LABS: ALANINE AMINOTRANSFERASE 83 U/L (21-72); ALBUMIN 2.6 g/dL (3.5-5.0); ALKALINE PHOSPHATASE 203 U/L (38-126); ANION GAP 11 (5-19); ASPARTATE AMINO TRANSFERASE 61 U/L (17-59); BILIRUBIN,DIRECT 3.8 mg/dL (0.0-0.4); BILIRUBIN,TOTAL 4.2 mg/dL (0.2-1.3); BLOOD UREA NITROGEN 24 mg/dL (7-20); CALCIUM 7.6 mg/dL (8.4-10.2); CARBON DIOXIDE 18 mmol/L (22-30); CHLORIDE 110 mmol/L (98-107); CHOLESTEROL 120.98 mg/dL (0-200); CREATININE RESULT 0.68 mg/dL (0.52-1.25); Direct HDL 16 mg/dL (>40); GLUCOSE 137 mg/dL (75-110); LIPASE 19.2 U/L (23-300); MAGNESIUM 1.9 mg/dL (1.6-2.3); PHOSPHORUS 3.9 mg/dL (2.5-4.5); POTASSIUM 4.5 mmol/L (3.6-5.0); SODIUM 138.8 mmol/L (137-145); TOTAL PROTEIN 5.1 g/dL (6.3-8.2); TRIGLYCERIDES 261 mg/dL (<150)
[2016-11-29 05:41] LABS: BAND NEUTROPHILS % (MANUAL) 5 % (3-5); BASOPHILS % (MANUAL) 0 % (0-2); EOSINOPHILS % (MANUAL) 0 % (0-6); LYMPHOCYTES % (MANUAL) 1 % (13-45); TOTAL CELLS COUNTED 100
[2016-11-29 05:42] LABS: RBC MORPHOLOGY COMMENT NORMO-CYTIC/CHROMIC; TOXIC GRANULATION SLIGHT; TOXIC VACUOLATION PRESENT
[2016-11-29 05:44] LABS: DIRECT LDL < 30 mg/dL (<100); VLDL CHOLESTEROL 52.2 mg/dL (10-31)
--- NOTE | 2016-11-29 07:57 | RADIOLOGY REPORT (SQ) ---
EXAM DESCRIPTION: KUB/ABDOMEN (SINGLE VIEW) COMPLETED DATE/TIME: 11/29/2016 7:42 am REASON FOR STUDY: abdominal pain COMPARISON: None. NUMBER OF VIEWS: One view. TECHNIQUE: Supine radiographic image of the abdomen acquired. LIMITATIONS: None. FINDINGS: BOWEL GAS PATTERN: Normal bowel gas pattern. No dilated loops. Retained intra colonic con trast. Moderate colonic diverticulosis. Paucity of bowel gas. CALCIFICATIONS: No suspicious calcifications. SOFT TISSUES: No gross mass or suggestion of organomegaly. HARDWARE: None in the abdomen. BONES: Moderate disc desiccation. L5 transitional vertebral body. Small ossicular fragmentation ass ociated at the superior aspect of the right greater trochanter of the proximal femur. OTHER: No other significant finding. IMPRESSION: NO RADIOGRAPHIC EVIDENCE FOR ACUTE ABDOMINAL DISEASE. TECHNICAL DOCUMENTATION: JOB ID: [id number] [employer]- All Rights Reserved
[2016-11-29] MEDS: FAMOTIDINE INJ/PF 20 MG/2 ML SDV IV SCH (08:08)
[2016-11-29] MEDS ORDERED: DEXAMETHASONE SOD PHOSPHATE INJ 4 MG/1 ML VIAL ONE (08:35)
[2016-11-29] MEDS ORDERED: ONDANSETRON HCL INJ/PF 4 MG/2 ML SDV ONE (08:35)
[2016-11-29] MEDS ORDERED: NEOSTIGMINE METHYLSULFATE 10 MG/10 ML VIAL ONE (08:35)
[2016-11-29] MEDS ORDERED: ROCURONIUM BROMIDE INJ 50 MG/5 ML VIAL IV ONE (08:35)
[2016-11-29] MEDS ORDERED: GLYCOPYRROLATE INJ 0.4 MG/2 ML VIAL ONE (08:35)
[2016-11-29] MEDS ORDERED: LIDOCAINE 2% INJ-PF (20 MG/ML) 10 ML AMPUL ONE (08:35)
[2016-11-29] MEDS ORDERED: SUCCINYLCHOLINE CHLORIDE INJ 200 MG/10 ML VIAL ONE (08:35)
--- NOTE | 2016-11-29 08:54 | PDOC PROGRESS REPORT ---
Subjective Progress Note for:: 11/29/16 Subjective:: c/o pain right upper quadrant Physical Exam Vital Signs: Temp Pulse Resp BP Pulse Ox 97.7 F 68 18 109/75 98 11/29/16 07:04 11/29/16 07:04 11/29/16 07:04 11/29/16 07:04 11/29/16 07:04 Intake & Output 11/28/16 11/29/16 11/30/16 06:59 06:59 06:59 Intake Total 3690 Output Total 100 Balance 3590 Weight 74.2 kg GI/Abdominal exam: PRESENT: tenderness - right upper wquadrant, other Results Laboratory Results: 11/29/16 05:08 11/29/16 05:08 11/28/16 11/28/16 11/28/16 15:21 20:15 20:15 WBC Cancelled RBC Cancelled Hgb Cancelled Hct Cancelled MCV Cancelled MCH Cancelled MCHC Cancelled RDW Cancelled Plt Count Cancelled Seg Neutrophils % Cancelled Lymphocytes % Cancelled Monocytes % Cancelled Eosinophils % Cancelled Basophils % Cancelled Absolute Neutrophils Cancelled Absolute Lymphocytes Cancelled Absolute Monocytes Cancelled Absolute Eosinophils Cancelled Absolute Basophils Cancelled Sodium 137.6 Potassium 4.1 Chloride 107 Carbon Dioxide 19 L Anion Gap 12 BUN 18 Creatinine 0.82 Est GFR ( Amer) > 60 Est GFR (Non-Af Amer) > 60 Glucose 153 H Calcium 7.3 L Phosphorus Magnesium 1.7 Total Bilirubin 4.7 H AST 49 ALT 74 H Alkaline Phosphatase 216 H Total Protein 5.1 L Albumin 2.6 L Triglycerides Cholesterol LDL Cholesterol Direct VLDL Cholesterol HDL Cholesterol Lipase Urine Color CELESTINA Urine Appearance SLIGHTLY-CLOUDY Urine pH 5.0 Ur Specific [place] 1.056 Urine Protein 100 H Urine Glucose (UA) NEGATIVE Urine Ketones NEGATIVE Urine Blood SMALL H Urine Nitrite NEGATIVE Ur Leukocyte Esterase NEGATIVE Urine WBC (Auto) 5 Urine RBC (Auto) 7 11/28/16 11/29/16 11/29/16 22:45 05:08 05:08 WBC 13.7 H D 13.1 H RBC 3.50 L 3.44 L Hgb 10.9 L 10.7 L Hct 31.5 L 31.2 L MCV 90 91 MCH 31.3 31.0 MCHC 34.7 34.2 RDW 13.9 13.8 Plt Count 96 L 88 L Seg Neutrophils % Not Reportable Not Reportable Lymphocytes % Not Reportable Not Reportable Monocytes % Not Reportable Not Reportable Eosinophils % Not Reportable Not Reportable Basophils % Not Reportable Not Reportable Absolute Neutrophils Not Reportable Not Reportable Absolute Lymphocytes Not Reportable Not Reportable Absolute Monocytes Not Reportable Not Reportable Absolute Eosinophils Not Reportable Not Reportable Absolute Basophils Not Reportable Not Reportable Sodium 138.8 Potassium 4.5 Chloride 110 H Carbon Dioxide 18 L Anion Gap 11 BUN 24 H Creatinine 0.68 Est GFR ( Amer) > 60 Est GFR (Non-Af Amer) > 60 Glucose 137 H Calcium 7.6 L Phosphorus 3.9 Magnesium 1.9 Total Bilirubin 4.2 H AST 61 H ALT 83 H Alkaline Phosphatase 203 H Total Protein 5.1 L Albumin 2.6 L Triglycerides 261 H Cholesterol 120.98 LDL Cholesterol Direct < 30 VLDL Cholesterol 52.2 H HDL Cholesterol 16 L Lipase 19.2 L Urine Color Urine Appearance Urine pH Ur Specific [place] Urine Protein Urine Glucose (UA) Urine Ketones Urine Blood Urine Nitrite Ur Leukocyte Esterase Urine WBC (Auto) Urine RBC (Auto) Impressions: Abdomen MRI 11/28/16 00:00 IMPRESSION: STABLE MILD INTRAHEPATIC BILIARY DUCT DILATATION WITH PERIODONTAL EDEMA SUGGESTIVE OF CHOLANGITIS GIVEN FINDINGS ON PRIOR HEPATOBILIARY SCAN. NO RETAINED STONE OR SIGNIFICANT DILATATION OF THE COMMON BILE DUCT IDENTIFIED. DIFFERENTIAL INCLUDES OCCULT CHOLANGIO CARCINOMA AT THE [place] HEPATIS WHICH MAY ONLY BE VISIBLE WITH DELAYED CONTRAST-ENHANCED IMAGING. STABLE MARKED CIRCUMFERENTIAL GALLBLADDER WALL THICKENING/EDEMA WITH MILD PERICHOLECYSTIC FLUID PRESUMABLY REPRESENTING CHRONIC CHOLECYSTITIS GIVEN PRIOR IMAGING FINDINGS. Chest X-Ray 11/28/16 00:00 IMPRESSION: NO ACUTE RADIOGRAPHIC FINDING IN THE CHEST. Acute Abdomen Series 11/28/16 03:30 IMPRESSION: NO RADIOGRAPHIC EVIDENCE FOR ACUTE ABDOMINAL DISEASE. Hepatobiliary Scan Nuclear Medicine 11/28/16 10:17 IMPRESSION: The findings are concerning for obstruction of the common bile duct. Clinical correlation. Abdomen/Pelvis CT 11/28/16 11:16 IMPRESSION: 1. SIGMOID DIVERTICULITIS. SMALL AMOUNT OF GAS IS PRESENT IN THE MESENTERIC VEIN DRAINING THE SIGMOID COLON, SIMILAR TO THE PREVIOUS STUDY, LIKELY DUE TO BOWEL INFLAMMATION/INFECTION. ALSO SMALL AMOUNT OF PORTAL VENOUS GAS IN THE LIVER RELATED TO THIS FINDING. NO FREE AIR OR OTHER ACUTE CHANGES. 2. CONTRACTED GALLBLADDER WITH GALLBLADDER WALL THICKENING. THE PATIENT IS SCHEDULED FOR HEPATOBILIARY SCAN TO DETERMINE IF THERE MAY BE FINDINGS TO INDICATE CHOLECYSTITIS. 3. NO OTHER SIGNIFICANT OR ACUTE PROCESS IN THE ABDOMEN OR PELVIS. KUB X-Ray 11/29/16 06:00 IMPRESSION: NO RADIOGRAPHIC EVIDENCE FOR ACUTE ABDOMINAL DISEASE. Assessment & Plan - Plan Summary Plan Summary: MRCP, HIDA Most likely Acute cholecystitis with inflammed GB probably compressing the bile ducts plan Lp neymar , possible post op ERCP
--- NOTE | 2016-11-29 09:19 | PDOC PROGRESS REPORT ---
Subjective Progress Note for:: 11/29/16 Subjective:: Abdominal pain is better. Denies any diarrhea at this time. No chills or fever at this time as well. No cough or chest congestion. No chest pain or shortness of breath. Still having abdominal pain mainly on the right upper quadrant. HIDA scan was positive for possible obstruction. Abdominal MRI showed findings of cholecystitis and questionable cholangitis. Physical Exam Vital Signs: Temp Pulse Resp BP Pulse Ox 97.7 F 68 18 109/75 98 11/29/16 07:04 11/29/16 07:04 11/29/16 07:04 11/29/16 07:04 11/29/16 07:04 Intake & Output 11/28/16 11/29/16 11/30/16 06:59 06:59 06:59 Intake Total 3690 Output Total 100 Balance 3590 Weight 74.2 kg General appearance: PRESENT: no acute distress, cooperative Eye exam: PRESENT: EOMI Mouth exam: PRESENT: moist, neck supple Neck exam: ABSENT: JVD Respiratory exam: PRESENT: clear to auscultation tori. ABSENT: rhonchi, wheezes Cardiovascular exam: PRESENT: RRR. ABSENT: gallop GI/Abdominal exam: PRESENT: distended - Mildly, hyperactive bowel sounds, tenderness - periumbilical and right upper quadrant Extremities exam: ABSENT: pedal edema Neurological exam: PRESENT: alert, awake, oriented to situation Skin exam: PRESENT: dry, warm. ABSENT: cyanosis Results Laboratory Results: 11/29/16 05:08 11/29/16 05:08 11/28/16 11/28/16 11/28/16 15:21 20:15 20:15 WBC Cancelled RBC Cancelled Hgb Cancelled Hct Cancelled MCV Cancelled MCH Cancelled MCHC Cancelled RDW Cancelled Plt Count Cancelled Seg Neutrophils % Cancelled Lymphocytes % Cancelled Monocytes % Cancelled Eosinophils % Cancelled Basophils % Cancelled Absolute Neutrophils Cancelled Absolute Lymphocytes Cancelled Absolute Monocytes Cancelled Absolute Eosinophils Cancelled Absolute Basophils Cancelled Sodium 137.6 Potassium 4.1 Chloride 107 Carbon Dioxide 19 L Anion Gap 12 BUN 18 Creatinine 0.82 Est GFR ( Amer) > 60 Est GFR (Non-Af Amer) > 60 Glucose 153 H Calcium 7.3 L Phosphorus Magnesium 1.7 Total Bilirubin 4.7 H AST 49 ALT 74 H Alkaline Phosphatase 216 H Total Protein 5.1 L Albumin 2.6 L Triglycerides Cholesterol LDL Cholesterol Direct VLDL Cholesterol HDL Cholesterol Lipase Urine Color CELESTINA Urine Appearance SLIGHTLY-CLOUDY Urine pH 5.0 Ur Specific [place] 1.056 Urine Protein 100 H Urine Glucose (UA) NEGATIVE Urine Ketones NEGATIVE Urine Blood SMALL H Urine Nitrite NEGATIVE Ur Leukocyte Esterase NEGATIVE Urine WBC (Auto) 5 Urine RBC (Auto) 7 11/28/16 11/29/16 11/29/16 22:45 05:08 05:08 WBC 13.7 H D 13.1 H RBC 3.50 L 3.44 L Hgb 10.9 L 10.7 L Hct 31.5 L 31.2 L MCV 90 91 MCH 31.3 31.0 MCHC 34.7 34.2 RDW 13.9 13.8 Plt Count 96 L 88 L Seg Neutrophils % Not Reportable Not Reportable Lymphocytes % Not Reportable Not Reportable Monocytes % Not Reportable Not Reportable Eosinophils % Not Reportable Not Reportable Basophils % Not Reportable Not Reportable Absolute Neutrophils Not Reportable Not Reportable Absolute Lymphocytes Not Reportable Not Reportable Absolute Monocytes Not Reportable Not Reportable Absolute Eosinophils Not Reportable Not Reportable Absolute Basophils Not Reportable Not Reportable Sodium 138.8 Potassium 4.5 Chloride 110 H Carbon Dioxide 18 L Anion Gap 11 BUN 24 H Creatinine 0.68 Est GFR ( Amer) > 60 Est GFR (Non-Af Amer) > 60 Glucose 137 H Calcium 7.6 L Phosphorus 3.9 Magnesium 1.9 Total Bilirubin 4.2 H AST 61 H ALT 83 H Alkaline Phosphatase 203 H Total Protein 5.1 L Albumin 2.6 L Triglycerides 261 H Cholesterol 120.98 LDL Cholesterol Direct < 30 VLDL Cholesterol 52.2 H HDL Cholesterol 16 L Lipase 19.2 L Urine Color Urine Appearance Urine pH Ur Specific [place] Urine Protein Urine Glucose (UA) Urine Ketones Urine Blood Urine Nitrite Ur Leukocyte Esterase Urine WBC (Auto) Urine RBC (Auto) Impressions: Abdomen MRI 11/28/16 00:00 IMPRESSION: STABLE MILD INTRAHEPATIC BILIARY DUCT DILATATION WITH PERIODONTAL EDEMA SUGGESTIVE OF CHOLANGITIS GIVEN FINDINGS ON PRIOR HEPATOBILIARY SCAN. NO RETAINED STONE OR SIGNIFICANT DILATATION OF THE COMMON BILE DUCT IDENTIFIED. DIFFERENTIAL INCLUDES OCCULT CHOLANGIO CARCINOMA AT THE [place] HEPATIS WHICH MAY ONLY BE VISIBLE WITH DELAYED CONTRAST-ENHANCED IMAGING. STABLE MARKED CIRCUMFERENTIAL GALLBLADDER WALL THICKENING/EDEMA WITH MILD PERICHOLECYSTIC FLUID PRESUMABLY REPRESENTING CHRONIC CHOLECYSTITIS GIVEN PRIOR IMAGING FINDINGS. Chest X-Ray 11/28/16 00:00 IMPRESSION: NO ACUTE RADIOGRAPHIC FINDING IN THE CHEST. Acute Abdomen Series 11/28/16 03:30 IMPRESSION: NO RADIOGRAPHIC EVIDENCE FOR ACUTE ABDOMINAL DISEASE. Hepatobiliary Scan Nuclear Medicine 11/28/16 10:17 IMPRESSION: The findings are concerning for obstruction of the common bile duct. Clinical correlation. Abdomen/Pelvis CT 11/28/16 11:16 IMPRESSION: 1. SIGMOID DIVERTICULITIS. SMALL AMOUNT OF GAS IS PRESENT IN THE MESENTERIC VEIN DRAINING THE SIGMOID COLON, SIMILAR TO THE PREVIOUS STUDY, LIKELY DUE TO BOWEL INFLAMMATION/INFECTION. ALSO SMALL AMOUNT OF PORTAL VENOUS GAS IN THE LIVER RELATED TO THIS FINDING. NO FREE AIR OR OTHER ACUTE CHANGES. 2. CONTRACTED GALLBLADDER WITH GALLBLADDER WALL THICKENING. THE PATIENT IS SCHEDULED FOR HEPATOBILIARY SCAN TO DETERMINE IF THERE MAY BE FINDINGS TO INDICATE CHOLECYSTITIS. 3. NO OTHER SIGNIFICANT OR ACUTE PROCESS IN THE ABDOMEN OR PELVIS. KUB X-Ray 11/29/16 06:00 IMPRESSION: NO RADIOGRAPHIC EVIDENCE FOR ACUTE ABDOMINAL DISEASE. Assessment & Plan - Diagnosis (1) Acute cholecystitis Is this a current diagnosis for this admission?: Yes (2) Sigmoid diverticulitis Is this a current diagnosis for this admission?: Yes (3) Hypokalemia Is this a current diagnosis for this admission?: Yes (4) Hypoglycemia Is this a current diagnosis for this admission?: Yes (5) Thrombocytopenia Is this a current diagnosis for this admission?: Yes (6) Metabolic acidosis Is this a current diagnosis for this admission?: Yes (7) Elevated LFTs Is this a current diagnosis for this admission?: Yes (8) Essential hypertension Is this a current diagnosis for this admission?: Yes (9) Osteoarthritis Qualifiers: Osteoarthritis location: unspecified site Osteoarthritis type: unspecified Qualified Code(s): M19.90 - Unspecified osteoarthritis, unspecified site Is this a current diagnosis for this admission?: Yes - Time Time Spent with patient: 25-34 minutes - Plan Summary Plan Summary: Patient to go for laparoscopic cholecystectomy today. Appreciate surgery help. Continue current antibiotics. Keep the patient n.p.o. May need ERCP later as per surgical service. Continue analgesics as needed for pain control.
[2016-11-29] MEDS ORDERED: HYDROMORPHONE HCL INJ/PF 2 MG/ML AMPULE ONE (09:53)
[2016-11-29] MEDS ORDERED: MIDAZOLAM 2 MG/2 ML INJ ONE (09:53)
[2016-11-29] MEDS ORDERED: PROPOFOL INJ 200 MG/20 ML VIAL IV ONE (09:53)
[2016-11-29] MEDS ORDERED: ACETAMINOPHEN 100 ML IV ONE (09:53)
[2016-11-29] MEDS ORDERED: FENTANYL CITRATE INJ/PF 100 MCG/2 ML AMPUL ONE (09:53)
[2016-11-29] MEDS ORDERED: BUPIVACAINE HCL 0.25 % INJ/PF (2.5 MG/1 ML) 30 ML VIAL ONE (09:53)
[2016-11-29] MEDS ORDERED: ENOXAPARIN SODIUM INJ 40 MG/0.4 ML DISP.SYRIN SUBCUT SCH (10:00)
[2016-11-29] MEDS ORDERED: FENTANYL CITRATE INJ/PF 100 MCG/2 ML AMPUL IV PRN ×3 (10:28)
[2016-11-29] MEDS ORDERED: MORPHINE SULFATE 10 MG/ML INJ IV PRN (10:28)
[2016-11-29] MEDS ORDERED: DIPHENHYDRAMINE HCL 50 MG/ML VIAL IV PRN (10:28)
[2016-11-29] MEDS ORDERED: PROMETHAZINE HCL INJ 25 MG/1 ML VIAL IV PRN (10:28)
[2016-11-29] MEDS ORDERED: MEPERIDINE HCL/PF INJ 25 MG/1 ML DISP.SYRIN IV PRN (10:28)
[2016-11-29] MEDS ORDERED: ONDANSETRON HCL INJ/PF 4 MG/2 ML SDV IV PRN (12:11)
[2016-11-29 19:17] LABS: HEMATOCRIT 28.1 % (37.9-51.0); HEMOGLOBIN 9.7 g/dL (13.5-17.0); MEAN CORPUSCULAR HEMOGLOBIN 31.2 pg (27.0-33.4); MEAN CORPUSCULAR HGB CONC 34.4 g/dL (32.0-36.0); MEAN CORPUSCULAR VOLUME 91 fl (80-97); WHITE BLOOD COUNT 14.2 10^3/uL (4.0-10.5)
[2016-11-29 19:24] LABS: PROTHROMBIN TIME 16.5 SEC (11.4-15.4)
[2016-11-30] MEDS ORDERED: NICOTINE 7 MG/24 HR PATCH.TD24 TD PRN (00:48)
[2016-11-30] MEDS: HYDROMORPHONE HCL INJ/PF 2 MG/ML AMPULE IV PRN ×4 (02:15→19:59)
[2016-11-30] MEDS: METRONIDAZOLE 500 MG/NS RTU 100 ML IV SCH ×2 (02:21→08:04)
[2016-11-30] MEDS: CIPROFLOXACIN 400 MG/D5W RTU 200 ML IV SCH (05:33)
[2016-11-30] MEDS: NORMAL SALINE 1000 ML 1,000 ML IV PRN ×2 (05:34→20:00)
[2016-11-30 06:17] LABS: HEMATOCRIT 27.6 % (37.9-51.0); HEMOGLOBIN 9.6 g/dL (13.5-17.0); HGB HCT DIFFERENCE 1.2; MEAN CORPUSCULAR HEMOGLOBIN 31.4 pg (27.0-33.4); MEAN CORPUSCULAR HGB CONC 34.9 g/dL (32.0-36.0); MEAN CORPUSCULAR VOLUME 90 fl (80-97); RED BLOOD COUNT 3.07 10^6/uL (4.35-5.55); RED CELL DISTRIBUTION WIDTH 13.8 % (11.5-14.0); WHITE BLOOD COUNT 13.4 10^3/uL (4.0-10.5)
[2016-11-30 06:19] LABS: PROTHROMBIN TIME 15.8 SEC (11.4-15.4)
[2016-11-30 06:29] LABS: PARTIAL THROMBOPLASTIN TIME 32.5 SEC (23.5-35.8)
[2016-11-30 06:31] LABS: ALANINE AMINOTRANSFERASE 86 U/L (21-72); ALBUMIN 2.3 g/dL (3.5-5.0); ALKALINE PHOSPHATASE 199 U/L (38-126); ASPARTATE AMINO TRANSFERASE 70 U/L (17-59); BILIRUBIN,DIRECT 2.2 mg/dL (0.0-0.4); BILIRUBIN,TOTAL 2.5 mg/dL (0.2-1.3); TOTAL PROTEIN 4.6 g/dL (6.3-8.2)
--- NOTE | 2016-11-30 10:57 | PDOC PROGRESS REPORT ---
Subjective Progress Note for:: 11/30/16 Subjective:: Patient overall feels better, abdominal pain is less and diarrhea improved. Patient however reportedly having ectopies on the monitor but according to the patient he was having chills. Patient also develops anxiety and restlessness being in the hospital. No reported respiratory distress, nausea or vomiting, dizziness or lightheadedness. Patient tolerating oral intake. Physical Exam Vital Signs: Temp Pulse Resp BP Pulse Ox 97.5 F 73 18 105/74 97 11/30/16 07:25 11/30/16 07:25 11/30/16 07:25 11/30/16 07:25 11/30/16 07:25 Intake & Output 11/29/16 11/30/16 12/01/16 06:59 06:59 06:59 Intake Total 3690 6489 Output Total 100 2250 Balance 3590 4239 Weight 74.2 kg 81.3 kg General appearance: PRESENT: no acute distress, cooperative Head exam: PRESENT: normocephalic Eye exam: PRESENT: EOMI Mouth exam: PRESENT: moist, neck supple Neck exam: ABSENT: JVD Respiratory exam: PRESENT: clear to auscultation tori. ABSENT: rhonchi, wheezes Cardiovascular exam: PRESENT: RRR. ABSENT: gallop GI/Abdominal exam: PRESENT: hypoactive bowel sounds, soft, other - JOSEPH drain in place Extremities exam: ABSENT: pedal edema Neurological exam: PRESENT: alert, awake, oriented to situation Skin exam: PRESENT: dry, warm. ABSENT: cyanosis Results Laboratory Results: 11/30/16 05:29 11/29/16 05:08 11/29/16 11/29/16 11/30/16 19:02 19:02 05:29 WBC 14.2 H 13.4 H RBC 3.10 L 3.07 L Hgb 9.7 L 9.6 L Hct 28.1 L 27.6 L MCV 91 90 MCH 31.2 31.4 MCHC 34.4 34.9 RDW 14.0 13.8 Plt Count 100 L 98 L Total Bilirubin AST ALT Alkaline Phosphatase Total Protein Albumin Blood Type O POSITIVE 11/30/16 05:29 WBC RBC Hgb Hct MCV MCH MCHC RDW Plt Count Total Bilirubin 2.5 H AST 70 H ALT 86 H Alkaline Phosphatase 199 H Total Protein 4.6 L Albumin 2.3 L Blood Type 11/28/16 15:21 Clean Catch Midstream Urine Culture - Final NO GROWTH 2 DAYS Impressions: Abdomen MRI 11/28/16 00:00 IMPRESSION: STABLE MILD INTRAHEPATIC BILIARY DUCT DILATATION WITH PERIODONTAL EDEMA SUGGESTIVE OF CHOLANGITIS GIVEN FINDINGS ON PRIOR HEPATOBILIARY SCAN. NO RETAINED STONE OR SIGNIFICANT DILATATION OF THE COMMON BILE DUCT IDENTIFIED. DIFFERENTIAL INCLUDES OCCULT CHOLANGIO CARCINOMA AT THE [place] HEPATIS WHICH MAY ONLY BE VISIBLE WITH DELAYED CONTRAST-ENHANCED IMAGING. STABLE MARKED CIRCUMFERENTIAL GALLBLADDER WALL THICKENING/EDEMA WITH MILD PERICHOLECYSTIC FLUID PRESUMABLY REPRESENTING CHRONIC CHOLECYSTITIS GIVEN PRIOR IMAGING FINDINGS. Chest X-Ray 11/28/16 00:00 IMPRESSION: NO ACUTE RADIOGRAPHIC FINDING IN THE CHEST. Acute Abdomen Series 11/28/16 03:30 IMPRESSION: NO RADIOGRAPHIC EVIDENCE FOR ACUTE ABDOMINAL DISEASE. Hepatobiliary Scan Nuclear Medicine 11/28/16 10:17 IMPRESSION: The findings are concerning for obstruction of the common bile duct. Clinical correlation. Abdomen/Pelvis CT 11/28/16 11:16 IMPRESSION: 1. SIGMOID DIVERTICULITIS. SMALL AMOUNT OF GAS IS PRESENT IN THE MESENTERIC VEIN DRAINING THE SIGMOID COLON, SIMILAR TO THE PREVIOUS STUDY, LIKELY DUE TO BOWEL INFLAMMATION/INFECTION. ALSO SMALL AMOUNT OF PORTAL VENOUS GAS IN THE LIVER RELATED TO THIS FINDING. NO FREE AIR OR OTHER ACUTE CHANGES. 2. CONTRACTED GALLBLADDER WITH GALLBLADDER WALL THICKENING. THE PATIENT IS SCHEDULED FOR HEPATOBILIARY SCAN TO DETERMINE IF THERE MAY BE FINDINGS TO INDICATE CHOLECYSTITIS. 3. NO OTHER SIGNIFICANT OR ACUTE PROCESS IN THE ABDOMEN OR PELVIS. KUB X-Ray 11/29/16 06:00 IMPRESSION: NO RADIOGRAPHIC EVIDENCE FOR ACUTE ABDOMINAL DISEASE. Assessment & Plan - Diagnosis (1) Acute cholecystitis Is this a current diagnosis for this admission?: Yes (2) Sigmoid diverticulitis Is this a current diagnosis for this admission?: Yes (3) Hypokalemia Is this a current diagnosis for this admission?: Yes (4) Hypoglycemia Is this a current diagnosis for this admission?: Yes (5) Thrombocytopenia Is this a current diagnosis for this admission?: Yes (6) Metabolic acidosis Is this a current diagnosis for this admission?: Yes (7) Elevated LFTs Is this a current diagnosis for this admission?: Yes (8) Essential hypertension Is this a current diagnosis for this admission?: Yes (9) Osteoarthritis Qualifiers: Osteoarthritis location: unspecified site Osteoarthritis type: unspecified Qualified Code(s): M19.90 - Unspecified osteoarthritis, unspecified site Is this a current diagnosis for this admission?: Yes - Time Time Spent with patient: 25-34 minutes - Plan Summary Plan Summary: Patient's blood culture growing gram-negative rods and likewise gram-positive cocci. We will change antibiotic to Invanz and vancomycin. In the meantime obtain electrolytes, as needed Xanax for anxiety. Continue supportive care. We will discuss with surgery regarding need for ERCP and GI consult.
[2016-11-30] MEDS ORDERED: VANCOMYCIN HCL INJ 1000 MG VIAL IV SCH (11:00)
--- NOTE | 2016-11-30 11:13 | EKG REPORT ---
SEVERITY:- NORMAL ECG - SINUS RHYTHM : Confirmed by: Lindsey Bhatt MD 30-Nov-2016 11:13:05
[2016-11-30] MEDS: ALPRAZOLAM 0.5 MG TABLET PO PRN ×2 (11:21→21:06)
[2016-11-30 11:45] LABS: POTASSIUM 4.6 mmol/L (3.6-5.0)
[2016-11-30] MEDS ORDERED: ERTAPENEM SODIUM 1 GM in NORMAL SALINE 50 ML IV SCH (12:00)
[2016-11-30] MEDS ORDERED: ERTAPENEM SODIUM INJ 1 GM VIAL IV SCH (12:00)
--- NOTE | 2016-11-30 13:48 | PDOC PROGRESS REPORT ---
Subjective Progress Note for:: 11/30/16 Subjective:: Pain better sob . low satChest CT r/o PE Physical Exam Vital Signs: Temp Pulse Resp BP Pulse Ox 97.7 F 125 H 22 H 129/94 H 98 11/30/16 12:19 11/30/16 12:19 11/30/16 12:19 11/30/16 12:19 11/30/16 12:19 Intake & Output 11/29/16 11/30/16 12/01/16 06:59 06:59 06:59 Intake Total 3690 6489 681 Output Total 100 2250 Balance 3590 4239 681 Weight 74.2 kg 81.3 kg GI/Abdominal exam: PRESENT: other - SOFT ABDOMEN JOSEPH DRAIN - SEROUS Results Laboratory Results: 11/30/16 05:29 11/30/16 11:19 11/29/16 11/29/16 11/30/16 19:02 19:02 05:29 WBC 14.2 H 13.4 H RBC 3.10 L 3.07 L Hgb 9.7 L 9.6 L Hct 28.1 L 27.6 L MCV 91 90 MCH 31.2 31.4 MCHC 34.4 34.9 RDW 14.0 13.8 Plt Count 100 L 98 L Potassium Magnesium Total Bilirubin AST ALT Alkaline Phosphatase Total Protein Albumin Blood Type O POSITIVE 11/30/16 11/30/16 05:29 11:19 WBC RBC Hgb Hct MCV MCH MCHC RDW Plt Count Potassium 4.6 Magnesium 2.0 Total Bilirubin 2.5 H AST 70 H ALT 86 H Alkaline Phosphatase 199 H Total Protein 4.6 L Albumin 2.3 L Blood Type 11/28/16 15:21 Clean Catch Midstream Urine Culture - Final NO GROWTH 2 DAYS Impressions: Abdomen MRI 11/28/16 00:00 IMPRESSION: STABLE MILD INTRAHEPATIC BILIARY DUCT DILATATION WITH PERIODONTAL EDEMA SUGGESTIVE OF CHOLANGITIS GIVEN FINDINGS ON PRIOR HEPATOBILIARY SCAN. NO RETAINED STONE OR SIGNIFICANT DILATATION OF THE COMMON BILE DUCT IDENTIFIED. DIFFERENTIAL INCLUDES OCCULT CHOLANGIO CARCINOMA AT THE [place] HEPATIS WHICH MAY ONLY BE VISIBLE WITH DELAYED CONTRAST-ENHANCED IMAGING. STABLE MARKED CIRCUMFERENTIAL GALLBLADDER WALL THICKENING/EDEMA WITH MILD PERICHOLECYSTIC FLUID PRESUMABLY REPRESENTING CHRONIC CHOLECYSTITIS GIVEN PRIOR IMAGING FINDINGS. Chest X-Ray 11/28/16 00:00 IMPRESSION: NO ACUTE RADIOGRAPHIC FINDING IN THE CHEST. Acute Abdomen Series 11/28/16 03:30 IMPRESSION: NO RADIOGRAPHIC EVIDENCE FOR ACUTE ABDOMINAL DISEASE. Hepatobiliary Scan Nuclear Medicine 11/28/16 10:17 IMPRESSION: The findings are concerning for obstruction of the common bile duct. Clinical correlation. Abdomen/Pelvis CT 11/28/16 11:16 IMPRESSION: 1. SIGMOID DIVERTICULITIS. SMALL AMOUNT OF GAS IS PRESENT IN THE MESENTERIC VEIN DRAINING THE SIGMOID COLON, SIMILAR TO THE PREVIOUS STUDY, LIKELY DUE TO BOWEL INFLAMMATION/INFECTION. ALSO SMALL AMOUNT OF PORTAL VENOUS GAS IN THE LIVER RELATED TO THIS FINDING. NO FREE AIR OR OTHER ACUTE CHANGES. 2. CONTRACTED GALLBLADDER WITH GALLBLADDER WALL THICKENING. THE PATIENT IS SCHEDULED FOR HEPATOBILIARY SCAN TO DETERMINE IF THERE MAY BE FINDINGS TO INDICATE CHOLECYSTITIS. 3. NO OTHER SIGNIFICANT OR ACUTE PROCESS IN THE ABDOMEN OR PELVIS. KUB X-Ray 11/29/16 06:00 IMPRESSION: NO RADIOGRAPHIC EVIDENCE FOR ACUTE ABDOMINAL DISEASE. Assessment & Plan - Plan Summary Plan Summary: s/P Lap neymar for acute cholecystitis - no issues in regards to cholececystectomy Bilirubin , coming down to 2 + still concern about hepatic congestion , bileduct abnormality , even though elivated liver enzymes may have caused by Cholecystitis with Meritzes syndrome request GI consult tomorrow for ERCP
[2016-11-30] MEDS ORDERED: VANCOMYCIN HCL 1,000 MG in DEXTROSE 5%-WATER 250 ML IV SCH (14:00)
--- NOTE | 2016-11-30 14:40 | RADIOLOGY REPORT (SQ) ---
EXAM DESCRIPTION: CTA CHEST COMPLETED DATE/TIME: 11/30/2016 2:28 pm REASON FOR STUDY: R/O PE COMPARISON: None. TECHNIQUE: CT scan of the chest performed using helical scanning technique with dynamic intravenous contrast injection. Images reviewed with lung, soft tissue and bone windows. Reconstructed coronal and sagittal MPR images reviewed. Additional 3 dimensional post-processing performed to develop Maximal Intensity Projection images ([place] P). All images stored on PACS. All CT scanners at this facility use dose modulation, iterative reconstruction, and/or weight based d osing when appropriate to reduce radiation dose to as low as reasonably achievable (ALARA). [facility]: Dose Right [facility]: CareDose [facility]: Dose Right [facility]: Teradose 4D [facility]: [facility] CONTRAST TYPE AND DOSE: contrast/concentration: Isovue 370.00 mg/ml; Total Contrast Delivered: 72.0 ml; Total Saline Delivered: 110.0 ml RENAL FUNCTION: BUN 24 creatinine 0.7 RADIATION DOSE: Up-to-date CT equipment and radiation dose reduction techniques were employed. CTDIv ol: 18.0 - 23.2 mGy. DLP: 633 mGy-cm. . LIMITATIONS: Patient motion. FINDINGS: LUNGS AND PLEURA: Small right pleural effusion and associated airspace disease in the righ t lower lobe. Patchy subsegmental airspace disease in the right upper lobe. AORTA AND GREAT VESSELS: No aneurysm or dissection. HEART: No pericardial effusion. PULMONARY ARTERIES: No emboli visualized in the main pulmonary arteries or the segmental branches. HILAR AND MEDIASTINAL STRUCTURES: No identified masses or abnormal nodes. HARDWARE: None in the chest. UPPER ABDOMEN: Trace of subdiaphragmatic nondependent free air. THYROID AND OTHER SOFT TISSUES: No masses. No adenopathy. BONES: No acute or significant finding. 3D MIPS: Confirm above findings. OTHER: No other significant finding. IMPRESSION: 1. No evidence of pulmonary embolus. 2. Small right pleural effusion. Airspace disease in the right upper and lower lobes. In the [facility] clinical setting this is consistent with pneumonia. 3. Small amount of pneumoperitoneum status post recent cholecystectomy. COMMENT: These findings were called to No Jordan at 1433 hours. TECHNICAL DOCUMENTATION: JOB ID: [id number] Quality ID # [id number]: Final reports with documentation of one or more dose reduction techniques (e.g., Au tomated exposure control, adjustment of the mA and/or kV according to patient size, use of iterative reconstruction technique) 2010 [email or web address] All Rights Reserved
[2016-11-30] MEDS ORDERED: IMIPENEM/CILASTATIN SODIUM INJ 500 MG VIAL IV PRN (23:15)
[2016-11-30] MEDS: IPRATROPIUM/ALBUTEROL 0.5-2.5 MG/3 ML AMPUL NEB PRN (23:25)
[2016-11-30] MEDS ORDERED: LEVOFLOXACIN 750 MG/D5W RTU 750 MG/150 ML RTUPB IV ONE (23:45)
[2016-12-01] MEDS ORDERED: IMIPENEM/CILASTATIN SODIUM 500 MG in NORMAL SALINE 100 ML IV SCH ×2
--- NOTE | 2016-12-01 00:09 | OPERATIVE REPORT E ---
Operative Report NAME: MONAE SORTO : 1965 AGE: 51Y DATE OF SURGERY: 11/29/2016 ROOM: 325 PREOPERATIVE DIAGNOSIS: Acute cholecystitis, possible common bile duct/common hepatic duct area pathology, inflammation, or a blockage of duct on MRCP. POSTOPERATIVE DIAGNOSES: 1. Acute cholecystitis, partially necrotic gallbladder with a pericholecystic subhepatic bilious fluid collection. 2. 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 3. Extreme amount of edema of the gallbladder neck, causing common hepatic duct obstruction and inflammation. OPERATION: 1. Laparoscopic cholecystectomy. 2. Laparoscopic drainage of pericholecystic bilious fluid along with washout and a drain placement. SURGEON: JOHNNIE MARTIN M.D. ANESTHESIA: General. BLOOD LOSS: About 500 mL. SPECIMEN: The gallbladder with the contents. HISTORY AND INDICATION: The patient admitted with acute abdominal pain that turned out to be an inflamed gallbladder on the ultrasound and then MRCP and MRI scan was done. Elevated liver enzymes, bilirubin up to 3. There was questionable diverticulitis, but the patient did not have any signs of diverticulitis. Also, there was no inflammation of the colon. Then, further examination today by myself was indicative of severe acute tenderness in the right upper quadrant area, increased white count from 5,000 to 13,000 and basically consistent with cholecystitis, including on the MRI and MRCP, there was edema of the common hepatic duct area around the gallbladder area. Indicative of most likely of the inflamed gallbladder, gallbladder neck compressing on the common hepatic duct, most likely causing elevation in liver enzymes. So, the plan was exploration, cholecystectomy, and then if necessary, postoperative ERCP. Also, possible intraoperative cholangiogram considered. DESCRIPTION OF PROCEDURE: After induction of general anesthesia and placement of sequential compression device boots, continued IV antibiotics, and the abdomen was cleaned and draped as a sterile field. Initial access to supraumbilical area, a 12-mm trocar and then two 5 mm trocars, one in the epigastrium and one in the right upper quadrant area. Findings: A large amount of bilious fluid collection, part of the hemorrhagic in subhepatic area and diaphragmatic area, which was drained out completely. Gallbladder was extremely edematous and inflamed, partially necrotic, especially in the mid part of the gallbladder, and basically there was an extensive amount of inflammation of the gallbladder neck and toward cystic duct area. That was basically causing a lot of inflammation in that area, most likely contributing to elevated liver enzymes, particularly bilirubin, causing common hepatic duct extensive compression of the inflamed, tight, edematous gallbladder, and I did not feel comfortable mobilizing too much of cystic duct and common hepatic duct area to do cholangiogram for that part. For that reason, basically, the plan at this point was drainage and a subtotal cholecystectomy leaving enough cystic duct stump, so that securely ligated with a #0 looped Vicryl and PDS Endoloops. At that time, proceeded with gallbladder mobilization after contents were aspirated. The gallbladder was approach all the way to the gallbladder neck area. The cystic artery was identified and divided by the clips and Harmonic scalpel, and then the cystic duct was basically towards gallbladder neck. The proximal part of the cystic duct was securely dissected all around, and common hepatic duct area, common bile duct area, the cystic duct was securely ligated with two applications of 0-Vicryl Endoloop and 0 PDS Endoloop, both were applied and then gallbladder was dissected and divided right on top of the gallbladder neck. It was retrieved with an EndoCatch bag out of the abdominal cavity. cavity copiously irrigated with warm normal saline and suctioned out, and basically the liver was extremely congested and it was easy to bruise and bleed, so there was oozing from the liver and bed and the gallbladder and the fundus area in a couple of areas, which is estimated at about 4-5 mL of blood loss, but all completely hemostatic at the end of the procedure, which was obtained by packing the small areas of oozing by Surgicel. Once it was completely packed and completewas secured, a JOSEPH drain was placed in the subhepatic area and brought out of one 5 mm trocar. In the postop, will probably monitor his H and H and give him fresh frozen plasma (FFP) as needed, and then monitor liver enzymes and if necessary, have GI consultation in the future for possible ERCP. The patient without any problems and was taken to recovery room in good condition. DICTATING PHYSICIAN: JOHNNIE MARTIN M.D. [id number] Y#: [id number] ID: [id number] JOB#: [id number] ACCT: [id number] cc:JOHNNIE MARTIN M.D. > ALEX
--- NOTE | 2016-12-01 00:17 | RADIOLOGY REPORT (SQ) ---
EXAM DESCRIPTION: CHEST SINGLE VIEW COMPLETED DATE/TIME: 12/01/2016 12:05 am REASON FOR STUDY: fever COMPARISON: 11/28/2016. CT, 11/30/2016. EXAM PARAMETERS: NUMBER OF VIEWS: One view. TECHNIQUE: Single frontal radiographic view of the chest acquired. RADIATION DOSE: NA LIMITATIONS: None. FINDINGS: LUNGS AND PLEURA: Small haziness-layered effusion of the right lung base and small right l eft basilar opacity better appreciated on concurrent CT, 11/30/2016. MEDIASTINUM AND HILAR STRUCTURES: No masses. Contour normal. HEART AND VASCULAR STRUCTURES: Heart normal in size. Normal vasculature. BONES: No acute findings. HARDWARE: None in the chest. OTHER: No other significant finding. IMPRESSION: No significant interval change. Please also see CT, chest report from the same day. TECHNICAL DOCUMENTATION: JOB ID: [id number]
[2016-12-01] MEDS: HYDROMORPHONE HCL INJ/PF 2 MG/ML AMPULE IV PRN ×5 (00:37→20:55)
[2016-12-01 00:59] LABS: ALANINE AMINOTRANSFERASE 90 U/L (21-72); ALBUMIN 2.4 g/dL (3.5-5.0); ALKALINE PHOSPHATASE 269 U/L (38-126); ANION GAP 9 (5-19); ASPARTATE AMINO TRANSFERASE 76 U/L (17-59); BILIRUBIN,DIRECT 3.4 mg/dL (0.0-0.4); BILIRUBIN,TOTAL 3.9 mg/dL (0.2-1.3); BLOOD UREA NITROGEN 20 mg/dL (7-20); CALCIUM 7.6 mg/dL (8.4-10.2); CARBON DIOXIDE 22 mmol/L (22-30); CHLORIDE 104 mmol/L (98-107); CREATININE RESULT 0.72 mg/dL (0.52-1.25); GLUCOSE 78 mg/dL (75-110); MAGNESIUM 1.6 mg/dL (1.6-2.3); SODIUM 135.3 mmol/L (137-145); TOTAL PROTEIN 4.8 g/dL (6.3-8.2)
[2016-12-01 01:00] LABS: HEMATOCRIT 30.4 % (37.9-51.0); HEMOGLOBIN 10.8 g/dL (13.5-17.0); MEAN CORPUSCULAR HEMOGLOBIN 31.2 pg (27.0-33.4); MEAN CORPUSCULAR HGB CONC 35.4 g/dL (32.0-36.0); MEAN CORPUSCULAR VOLUME 88 fl (80-97); RED BLOOD COUNT 3.46 10^6/uL (4.35-5.55); RED CELL DISTRIBUTION WIDTH 13.7 % (11.5-14.0); WHITE BLOOD COUNT 5.5 10^3/uL (4.0-10.5)
[2016-12-01 01:10] LABS: BAND NEUTROPHILS % (MANUAL) 7 % (3-5); BASOPHILS % (MANUAL) 0 % (0-2); EOSINOPHILS % (MANUAL) 0 % (0-6); LYMPHOCYTES % (MANUAL) 4 % (13-45); TOTAL CELLS COUNTED 100
[2016-12-01 01:13] LABS: BURR CELLS SLIGHT; POIKILOCYTOSIS SLIGHT
[2016-12-01 01:26] LABS: POTASSIUM 3.4 mmol/L (3.6-5.0)
[2016-12-01] MEDS: POTASSI CL 20 MEQ/50 ML RIDER 20 MEQ/50 ML RTUPB IV SCH ×2 (02:00→03:40)
[2016-12-01] MEDS ORDERED: IMIPENEM/CILASTATIN SODIUM INJ 500 MG VIAL IV ONE (02:59)
--- NOTE | 2016-12-01 03:37 | EKG REPORT ---
SEVERITY:- OTHERWISE NORMAL ECG - SINUS TACHYCARDIA : Confirmed by: Lindsey Bhatt MD 01-Dec-2016 03:36:38
[2016-12-01] MEDS: VANCOMYCIN HCL 1,000 MG in DEXTROSE 5%-WATER 250 ML IV SCH ×3 (04:21→16:46)
[2016-12-01 06:57] LABS: HEMATOCRIT 27.6 % (37.9-51.0); HEMOGLOBIN 9.8 g/dL (13.5-17.0); HGB HCT DIFFERENCE 1.8; MEAN CORPUSCULAR HEMOGLOBIN 31.7 pg (27.0-33.4); MEAN CORPUSCULAR HGB CONC 35.5 g/dL (32.0-36.0); MEAN CORPUSCULAR VOLUME 89 fl (80-97); RED BLOOD COUNT 3.09 10^6/uL (4.35-5.55); WHITE BLOOD COUNT 8.7 10^3/uL (4.0-10.5)
[2016-12-01 07:05] LABS: ALANINE AMINOTRANSFERASE 85 U/L (21-72); ALBUMIN 2.1 g/dL (3.5-5.0); ALKALINE PHOSPHATASE 211 U/L (38-126); ANION GAP 6 (5-19); ASPARTATE AMINO TRANSFERASE 61 U/L (17-59); BILIRUBIN,DIRECT 3.3 mg/dL (0.0-0.4); BILIRUBIN,TOTAL 3.9 mg/dL (0.2-1.3); BLOOD UREA NITROGEN 19 mg/dL (7-20); CALCIUM 7.5 mg/dL (8.4-10.2); CARBON DIOXIDE 23 mmol/L (22-30); CHLORIDE 106 mmol/L (98-107); CREATININE RESULT 0.68 mg/dL (0.52-1.25); GLUCOSE 104 mg/dL (75-110); POTASSIUM 4.1 mmol/L (3.6-5.0); SODIUM 135.3 mmol/L (137-145); TOTAL PROTEIN 4.4 g/dL (6.3-8.2)
[2016-12-01] MEDS: ALPRAZOLAM 0.5 MG TABLET PO PRN ×2 (08:45→22:37)
--- NOTE | 2016-12-01 09:57 | PDOC PROGRESS REPORT ---
Subjective Progress Note for:: 12/01/16 Subjective:: Patient reportedly having ectopies again. Last night it happened and the patient recalled patient was resting started to develop chills and fever and sweating. Subsequently the patient become anxious. Reportedly the patient was tachycardic in the 150s 160s. Patient denies any diarrhea. Overall however the patient feels better in terms of pain as well as nausea and vomiting. Diarrhea has resolved. Physical Exam Vital Signs: Temp Pulse Resp BP Pulse Ox 97.5 F 81 18 103/67 99 12/01/16 07:03 12/01/16 07:03 12/01/16 07:03 12/01/16 07:03 12/01/16 07:03 Intake & Output 11/30/16 12/01/16 12/02/16 06:59 06:59 06:59 Intake Total 6489 3933 Output Total 2250 570 Balance 4239 3363 Weight 81.3 kg 81.1 kg General appearance: PRESENT: no acute distress, cooperative Head exam: PRESENT: normocephalic Eye exam: PRESENT: EOMI Mouth exam: PRESENT: moist, neck supple Neck exam: ABSENT: JVD Respiratory exam: PRESENT: clear to auscultation tori Cardiovascular exam: PRESENT: RRR. ABSENT: gallop GI/Abdominal exam: PRESENT: soft, tenderness - Right upper quadrant, other - JOSEPH drain in place. Extremities exam: ABSENT: pedal edema Neurological exam: PRESENT: alert, awake, oriented to situation Skin exam: PRESENT: dry, warm. ABSENT: cyanosis Results Laboratory Results: 12/01/16 06:24 12/01/16 06:24 11/30/16 12/01/16 12/01/16 11:19 00:20 00:20 WBC 5.5 RBC 3.46 L Hgb 10.8 L Hct 30.4 L MCV 88 MCH 31.2 MCHC 35.4 RDW 13.7 Plt Count 56 L Seg Neutrophils % Not Reportable Lymphocytes % Not Reportable Monocytes % Not Reportable Eosinophils % Not Reportable Basophils % Not Reportable Absolute Neutrophils Not Reportable Absolute Lymphocytes Not Reportable Absolute Monocytes Not Reportable Absolute Eosinophils Not Reportable Absolute Basophils Not Reportable Sodium 135.3 L Potassium 4.6 3.4 L D Chloride 104 Carbon Dioxide 22 Anion Gap 9 BUN 20 Creatinine 0.72 Est GFR ( Amer) > 60 Est GFR (Non-Af Amer) > 60 Glucose 78 Calcium 7.6 L Magnesium 2.0 1.6 Total Bilirubin 3.9 H AST 76 H ALT 90 H Alkaline Phosphatase 269 H Total Protein 4.8 L Albumin 2.4 L 12/01/16 12/01/16 06:24 06:24 WBC 8.7 RBC 3.09 L Hgb 9.8 L Hct 27.6 L MCV 89 MCH 31.7 MCHC 35.5 RDW 14.0 Plt Count 48 L Seg Neutrophils % Lymphocytes % Monocytes % Eosinophils % Basophils % Absolute Neutrophils Absolute Lymphocytes Absolute Monocytes Absolute Eosinophils Absolute Basophils Sodium 135.3 L Potassium 4.1 Chloride 106 Carbon Dioxide 23 Anion Gap 6 BUN 19 Creatinine 0.68 Est GFR ( Amer) > 60 Est GFR (Non-Af Amer) > 60 Glucose 104 Calcium 7.5 L Magnesium Total Bilirubin 3.9 H AST 61 H ALT 85 H Alkaline Phosphatase 211 H Total Protein 4.4 L Albumin 2.1 L 11/28/16 15:21 Clean Catch Midstream Urine Culture - Final NO GROWTH 2 DAYS Impressions: Abdomen MRI 11/28/16 00:00 IMPRESSION: STABLE MILD INTRAHEPATIC BILIARY DUCT DILATATION WITH PERIODONTAL EDEMA SUGGESTIVE OF CHOLANGITIS GIVEN FINDINGS ON PRIOR HEPATOBILIARY SCAN. NO RETAINED STONE OR SIGNIFICANT DILATATION OF THE COMMON BILE DUCT IDENTIFIED. DIFFERENTIAL INCLUDES OCCULT CHOLANGIO CARCINOMA AT THE EDMOND HEPATIS WHICH MAY ONLY BE VISIBLE WITH DELAYED CONTRAST-ENHANCED IMAGING. STABLE MARKED CIRCUMFERENTIAL GALLBLADDER WALL THICKENING/EDEMA WITH MILD PERICHOLECYSTIC FLUID PRESUMABLY REPRESENTING CHRONIC CHOLECYSTITIS GIVEN PRIOR IMAGING FINDINGS. Acute Abdomen Series 11/28/16 03:30 IMPRESSION: NO RADIOGRAPHIC EVIDENCE FOR ACUTE ABDOMINAL DISEASE. Hepatobiliary Scan Nuclear Medicine 11/28/16 10:17 IMPRESSION: The findings are concerning for obstruction of the common bile duct. Clinical correlation. Abdomen/Pelvis CT 11/28/16 11:16 IMPRESSION: 1. SIGMOID DIVERTICULITIS. SMALL AMOUNT OF GAS IS PRESENT IN THE MESENTERIC VEIN DRAINING THE SIGMOID COLON, SIMILAR TO THE PREVIOUS STUDY, LIKELY DUE TO BOWEL INFLAMMATION/INFECTION. ALSO SMALL AMOUNT OF PORTAL VENOUS GAS IN THE LIVER RELATED TO THIS FINDING. NO FREE AIR OR OTHER ACUTE CHANGES. 2. CONTRACTED GALLBLADDER WITH GALLBLADDER WALL THICKENING. THE PATIENT IS SCHEDULED FOR HEPATOBILIARY SCAN TO DETERMINE IF THERE MAY BE FINDINGS TO INDICATE CHOLECYSTITIS. 3. NO OTHER SIGNIFICANT OR ACUTE PROCESS IN THE ABDOMEN OR PELVIS. KUB X-Ray 11/29/16 06:00 IMPRESSION: NO RADIOGRAPHIC EVIDENCE FOR ACUTE ABDOMINAL DISEASE. Chest X-Ray 11/30/16 00:00 IMPRESSION: No significant interval change. Please also see CT, chest report from the same day. Chest/Abdomen CTA 11/30/16 00:00 IMPRESSION: 1. No evidence of pulmonary embolus. 2. Small right pleural effusion. Airspace disease in the right upper and lower lobes. In the appropriate clinical setting this is consistent with pneumonia. 3. Small amount of pneumoperitoneum status post recent cholecystectomy. Assessment & Plan - Diagnosis (1) Acute cholecystitis Is this a current diagnosis for this admission?: Yes (2) Sigmoid diverticulitis Is this a current diagnosis for this admission?: Yes (4) Hypokalemia Is this a current diagnosis for this admission?: Yes (5) Hypoglycemia Is this a current diagnosis for this admission?: Yes (6) Thrombocytopenia Is this a current diagnosis for this admission?: Yes (7) Metabolic acidosis Is this a current diagnosis for this admission?: Yes (8) Elevated LFTs Is this a current diagnosis for this admission?: Yes (9) Essential hypertension Is this a current diagnosis for this admission?: Yes (10) Osteoarthritis Qualifiers: Osteoarthritis location: unspecified site Osteoarthritis type: unspecified Qualified Code(s): M19.90 - Unspecified osteoarthritis, unspecified site Is this a current diagnosis for this admission?: Yes - Time Time Spent with patient: 25-34 minutes - Plan Summary Plan Summary: We will consult Dr. Quinonez for ERCP. Patient was started on Levaquin and Invanz was changed to Primaxin. We will discontinue Levaquin and start gentamicin intravenously. We will continue the vancomycin pending culture result. 2D echocardiogram will be obtained. Continue supportive care. Case discussed w/ surgery.
[2016-12-01] MEDS ORDERED: GENTAMICIN SULFATE INJ 80 MG/2 ML VIAL IV SCH (10:00)
[2016-12-01] MEDS: IMIPENEM/CILASTATIN SODIUM 500 MG in NORMAL SALINE 100 ML IV SCH ×3 (11:40→20:57)
[2016-12-01] MEDS: GENTAMICIN SULFATE 160 MG in DEXTROSE 5%-WATER 100 ML IV SCH ×2 (11:41→19:45)
[2016-12-01] MEDS: NORMAL SALINE 1000 ML 1,000 ML IV PRN (11:42)
--- NOTE | 2016-12-01 13:48 | PDOC PROGRESS REPORT ---
Subjective Progress Note for:: 12/01/16 Subjective:: Patient is postoperative day 2, sitting in a chair, in no acute distress. Physical Exam Vital Signs: Temp Pulse Resp BP Pulse Ox 98.0 F 113 H 20 98/54 L 94 12/01/16 11:05 12/01/16 11:05 12/01/16 11:05 12/01/16 11:05 12/01/16 11:05 Intake & Output 11/30/16 12/01/16 12/02/16 06:59 06:59 06:59 Intake Total 6489 3933 Output Total 2250 570 78 Balance 4239 3363 -78 Weight 81.3 kg 81.1 kg General appearance: PRESENT: no acute distress GI/Abdominal exam: PRESENT: other - Some right upper quadrant tenderness. Operative incisions glued shut. Drain in place with serous sanguinous nonbilious material. Results Laboratory Results: 12/01/16 06:24 12/01/16 06:24 11/29/16 12/01/16 12/01/16 19:02 00:20 00:20 WBC 5.5 RBC 3.46 L Hgb 10.8 L Hct 30.4 L MCV 88 MCH 31.2 MCHC 35.4 RDW 13.7 Plt Count 56 L Seg Neutrophils % Not Reportable Lymphocytes % Not Reportable Monocytes % Not Reportable Eosinophils % Not Reportable Basophils % Not Reportable Absolute Neutrophils Not Reportable Absolute Lymphocytes Not Reportable Absolute Monocytes Not Reportable Absolute Eosinophils Not Reportable Absolute Basophils Not Reportable Sodium 135.3 L Potassium 3.4 L D Chloride 104 Carbon Dioxide 22 Anion Gap 9 BUN 20 Creatinine 0.72 Est GFR ( Amer) > 60 Est GFR (Non-Af Amer) > 60 Glucose 78 Calcium 7.6 L Magnesium 1.6 Total Bilirubin 3.9 H AST 76 H ALT 90 H Alkaline Phosphatase 269 H Total Protein 4.8 L Albumin 2.4 L Blood Type O POSITIVE 12/01/16 12/01/16 06:24 06:24 WBC 8.7 RBC 3.09 L Hgb 9.8 L Hct 27.6 L MCV 89 MCH 31.7 MCHC 35.5 RDW 14.0 Plt Count 48 L Seg Neutrophils % Lymphocytes % Monocytes % Eosinophils % Basophils % Absolute Neutrophils Absolute Lymphocytes Absolute Monocytes Absolute Eosinophils Absolute Basophils Sodium 135.3 L Potassium 4.1 Chloride 106 Carbon Dioxide 23 Anion Gap 6 BUN 19 Creatinine 0.68 Est GFR ( Amer) > 60 Est GFR (Non-Af Amer) > 60 Glucose 104 Calcium 7.5 L Magnesium Total Bilirubin 3.9 H AST 61 H ALT 85 H Alkaline Phosphatase 211 H Total Protein 4.4 L Albumin 2.1 L Blood Type 11/28/16 15:21 Clean Catch Midstream Urine Culture - Final NO GROWTH 2 DAYS Impressions: Abdomen MRI 11/28/16 00:00 IMPRESSION: STABLE MILD INTRAHEPATIC BILIARY DUCT DILATATION WITH PERIODONTAL EDEMA SUGGESTIVE OF CHOLANGITIS GIVEN FINDINGS ON PRIOR HEPATOBILIARY SCAN. NO RETAINED STONE OR SIGNIFICANT DILATATION OF THE COMMON BILE DUCT IDENTIFIED. DIFFERENTIAL INCLUDES OCCULT CHOLANGIO CARCINOMA AT THE EDMOND HEPATIS WHICH MAY ONLY BE VISIBLE WITH DELAYED CONTRAST-ENHANCED IMAGING. STABLE MARKED CIRCUMFERENTIAL GALLBLADDER WALL THICKENING/EDEMA WITH MILD PERICHOLECYSTIC FLUID PRESUMABLY REPRESENTING CHRONIC CHOLECYSTITIS GIVEN PRIOR IMAGING FINDINGS. Acute Abdomen Series 11/28/16 03:30 IMPRESSION: NO RADIOGRAPHIC EVIDENCE FOR ACUTE ABDOMINAL DISEASE. Hepatobiliary Scan Nuclear Medicine 11/28/16 10:17 IMPRESSION: The findings are concerning for obstruction of the common bile duct. Clinical correlation. Abdomen/Pelvis CT 11/28/16 11:16 IMPRESSION: 1. SIGMOID DIVERTICULITIS. SMALL AMOUNT OF GAS IS PRESENT IN THE MESENTERIC VEIN DRAINING THE SIGMOID COLON, SIMILAR TO THE PREVIOUS STUDY, LIKELY DUE TO BOWEL INFLAMMATION/INFECTION. ALSO SMALL AMOUNT OF PORTAL VENOUS GAS IN THE LIVER RELATED TO THIS FINDING. NO FREE AIR OR OTHER ACUTE CHANGES. 2. CONTRACTED GALLBLADDER WITH GALLBLADDER WALL THICKENING. THE PATIENT IS SCHEDULED FOR HEPATOBILIARY SCAN TO DETERMINE IF THERE MAY BE FINDINGS TO INDICATE CHOLECYSTITIS. 3. NO OTHER SIGNIFICANT OR ACUTE PROCESS IN THE ABDOMEN OR PELVIS. KUB X-Ray 11/29/16 06:00 IMPRESSION: NO RADIOGRAPHIC EVIDENCE FOR ACUTE ABDOMINAL DISEASE. Chest X-Ray 11/30/16 00:00 IMPRESSION: No significant interval change. Please also see CT, chest report from the same day. Chest/Abdomen CTA 11/30/16 00:00 IMPRESSION: 1. No evidence of pulmonary embolus. 2. Small right pleural effusion. Airspace disease in the right upper and lower lobes. In the appropriate clinical setting this is consistent with pneumonia. 3. Small amount of pneumoperitoneum status post recent cholecystectomy. Assessment & Plan - Diagnosis (1) Acute cholecystitis Is this a current diagnosis for this admission?: YesPlan: Patient is today status post laparoscopic cholecystectomy for acute cholecystitis with necrotic gallbladder according to Dr. Jenkins, general surgeon. Drain still putting out nonbilious fluid. Patient feels better and the laboratory profile slight improvement. Plan: 1. Intravenous antibiotics, full liquids. 2. Leave drain in place 3. Adjust measuring liver function studies. If bacteremic episodes, and LFTs remain elevated, consideration for ERcp may be indicated. Discussed the above with Dr. Elise
[2016-12-01 14:31] LABS: CREATININE RESULT 0.67 mg/dL (0.52-1.25)
[2016-12-01] MEDS ORDERED: LEVOFLOXACIN 750 MG/D5W RTU 750 MG/150 ML RTUPB IV SCH (22:00)
[2016-12-02] MEDS: VANCOMYCIN HCL 1,000 MG in DEXTROSE 5%-WATER 250 ML IV SCH ×3 (01:13→17:40)
[2016-12-02] MEDS: IMIPENEM/CILASTATIN SODIUM 500 MG in NORMAL SALINE 100 ML IV SCH ×4 (03:07→21:43)
[2016-12-02] MEDS: HYDROMORPHONE HCL INJ/PF 2 MG/ML AMPULE IV PRN ×6 (03:15→23:11)
[2016-12-02] MEDS: GENTAMICIN SULFATE 160 MG in DEXTROSE 5%-WATER 100 ML IV SCH ×3 (03:35→20:04)
[2016-12-02 05:51] LABS: HEMATOCRIT 26.7 % (37.9-51.0); HEMOGLOBIN 9.4 g/dL (13.5-17.0); HGB HCT DIFFERENCE 1.5; MEAN CORPUSCULAR HEMOGLOBIN 31.3 pg (27.0-33.4); MEAN CORPUSCULAR HGB CONC 35.3 g/dL (32.0-36.0); MEAN CORPUSCULAR VOLUME 89 fl (80-97); RED BLOOD COUNT 3.02 10^6/uL (4.35-5.55); WHITE BLOOD COUNT 9.2 10^3/uL (4.0-10.5)
[2016-12-02 06:01] LABS: ANION GAP 7 (5-19); BLOOD UREA NITROGEN 15 mg/dL (7-20); CALCIUM 7.4 mg/dL (8.4-10.2); CARBON DIOXIDE 25 mmol/L (22-30); CHLORIDE 104 mmol/L (98-107); CREATININE RESULT 0.61 mg/dL (0.52-1.25); GLUCOSE 110 mg/dL (75-110); POTASSIUM 3.4 mmol/L (3.6-5.0); SODIUM 135.9 mmol/L (137-145)
--- NOTE | 2016-12-02 09:26 | XCELERA REPORT ---
[address] [address] Transthoracic Echocardiogram Report Name: MONAE SORTO Age: 51 yrs Gender: Male : 1965 Patient Status: Inpatient Patient Location: 3W\S\325\S\A Study Date: 12/01/2016 03:20 PM Height: 65 in Weight: 178 lb BSA: 1.9 m2 Procedure: A complete two-dimensional transthoracic echocardiogram was performed (2D, M-mode, spectral and color flow Doppler). The study was technically adequate with some images being suboptimal in quality. Reason For Study: tachycardia Ordering Physician: DAISY JEAN Performed By: Masood Sam Interpretation Summary The left ventricular ejection fraction is normal. There is normal left ventricular wall thickness. Doppler measurements suggest impaired left ventricular relaxation, which is associated with grade I/IV or mild diastolic dysfunction The left ventricle is grossly normal size. Wall motion cannot be accurately commented on, but no definite regional wall motion abnormalities noted. The right ventricle is mildly dilated. The right ventricular systolic function is normal. The right atrium is normal in size The left atrium is mildly dilated. There is no mitral valve stenosis. There is a mild amount of mitral regurgitation No aortic regurgitation is present. There is no aortic valve stenosis There is a trace to mild amount of tricuspid regurgitation There is mild pulmonary hypertension by echo Right ventricular systolic pressure is estimated to be elevated at 30- 40mmHg. The aortic root is not well visualized but is probably normal size. The inferior vena cava appeared normal and decreased < 50% with respiration (RAP 10-15 mmHg) There is no pericardial effusion. MMode/2D Measurements \T\ Calculations RVDd: 2.9 cm LVIDd: 5.1 cm FS: 37.7 % Ao root diam: 3.0 cm IVSd: 0.91 cm LVIDs: 3.2 cm EDV(Teich): 124.9 ml LVPWd: 0.93 cm ESV(Teich): 40.6 ml Ao root area: 6.9 cm2 EF(Teich): 67.5 % LA dimension: 4.3 cm Doppler Measurements \T\ Calculations MV E max cole: MV P1/2t max cole: Ao V2 max: LV V1 max P.7 cm/sec 98.7 cm/sec 142.5 cm/sec 5.2 mmHg MV A max cole: MV P1/2t: 58.6 msec Ao max PG: LV V1 max: 56.8 cm/sec 8.1 mmHg 114.1 cm/sec MV E/A: 1.7 MVA(P1/2t): 3.8 cm2 MV dec slope: 493.1 cm/sec2 PA V2 max: TR max cole: RAP systole: 79.5 cm/sec 234.8 cm/sec 10.0 mmHg PA max PG: TR max P.1 mmHg 2.5 mmHg RVSP(TR): 32.1 mmHg Left Ventricle The left ventricle is grossly normal size. There is normal left ventricular wall thickness. The left ventricular ejection fraction is normal. Doppler measurements suggest impaired left ventricular relaxation, which is associated with grade I/IV or mild diastolic dysfunction. Wall motion cannot be accurately commented on, but no definite regional wall motion abnormalities noted. Right Ventricle The right ventricle is mildly dilated. There is normal right ventricular wall thickness. The right ventricular systolic function is normal. Atria The right atrium is normal in size. The left atrium is mildly dilated. Interarterial septum not well visualized and not well dopplered. Cannot comment on ASD/PFO presence. Mitral Valve The mitral valve leaflets are sclerotic, but show no functional abnormalities. There is no mitral valve stenosis. There is a mild amount of mitral regurgitation. Aortic Valve The aortic valve is grossly normal. There is no aortic valve stenosis. No aortic regurgitation is present. Tricuspid Valve The tricuspid valve is not well visualized, but is grossly normal. There is no tricuspid stenosis. There is a trace to mild amount of tricuspid regurgitation. There is mild pulmonary hypertension by echo. Right ventricular systolic pressure is estimated to be elevated at 30-40mmHg. Pulmonic Valve The pulmonic valve is not well visualized. Great Vessels The aortic root is not well visualized but is probably normal size. The inferior vena cava appeared normal and decreased < 50% with respiration (RAP 10-15 mmHg). Effusions There is no pericardial effusion. : DAISY JEAN > Ramya Wing
--- NOTE | 2016-12-02 09:58 | PROGRESS NOTE E ---
Progress Note NAME: MONAE SORTO : 1965 AGE: 51Y DATE: 12/02/2016 ROOM: 325 SUBJECTIVE: Patient is third postop laparoscopic cholecystectomy and drainage of pericholecystic bilious fluid. Patient's temp is 38.7. He has been coughing, small productive cough. This is likely from recent stopping of smoking just before the surgery. Also, had a CAT scan 2 days ago, which showed pneumonia. His abdomen is slightly distended, but soft and nontender. Incisions are clean and dry. JOSEPH decreasing light serous fluid. His liver functions are slowly trending down postop. Starting to take clear liquids, though not taking enough at this time. PLAN: Continue antibiotic therapy and gradually increase his diet. DICTATING PHYSICIAN: CAIMLA WEBER M.D. [id number] PHY#: [id number] ID: [id number] JOB#: [id number] ACCT: [id number] cc: >
[2016-12-02] MEDS: IPRATROPIUM/ALBUTEROL 0.5-2.5 MG/3 ML AMPUL NEB PRN (10:42)
[2016-12-02 11:07] LABS: ALANINE AMINOTRANSFERASE 73 U/L (21-72); ALKALINE PHOSPHATASE 201 U/L (38-126); ASPARTATE AMINO TRANSFERASE 72 U/L (17-59); BILIRUBIN,DIRECT 2.8 mg/dL (0.0-0.4); BILIRUBIN,TOTAL 3.4 mg/dL (0.2-1.3); TOTAL PROTEIN 4.1 g/dL (6.3-8.2)
--- NOTE | 2016-12-02 14:53 | PDOC PROGRESS REPORT ---
Physical Exam Vital Signs: Temp Pulse Resp BP Pulse Ox 98.5 F 92 21 H 126/66 H 90 L 12/02/16 11:08 12/02/16 14:00 12/02/16 11:08 12/02/16 11:08 12/02/16 11:08 Intake & Output 12/01/16 12/02/16 12/03/16 06:59 06:59 06:59 Intake Total 3933 4135 118 Output Total 570 83 Balance 3363 4052 118 Weight 81.1 kg 84 kg Results Laboratory Results: 12/02/16 05:06 12/02/16 05:06 12/02/16 12/02/16 12/02/16 05:06 05:06 05:06 WBC 9.2 RBC 3.02 L Hgb 9.4 L Hct 26.7 L MCV 89 MCH 31.3 MCHC 35.3 RDW 14.0 Plt Count 50 L Sodium 135.9 L Potassium 3.4 L Chloride 104 Carbon Dioxide 25 Anion Gap 7 BUN 15 Creatinine 0.61 Est GFR ( Amer) > 60 Est GFR (Non-Af Amer) > 60 Glucose 110 Calcium 7.4 L Magnesium 2.0 Total Bilirubin 3.4 H AST 72 H ALT 73 H Alkaline Phosphatase 201 H Total Protein 4.1 L Albumin 2.0 L Impressions: Abdomen MRI 11/28/16 00:00 IMPRESSION: STABLE MILD INTRAHEPATIC BILIARY DUCT DILATATION WITH PERIODONTAL EDEMA SUGGESTIVE OF CHOLANGITIS GIVEN FINDINGS ON PRIOR HEPATOBILIARY SCAN. NO RETAINED STONE OR SIGNIFICANT DILATATION OF THE COMMON BILE DUCT IDENTIFIED. DIFFERENTIAL INCLUDES OCCULT CHOLANGIO CARCINOMA AT THE [place] HEPATIS WHICH MAY ONLY BE VISIBLE WITH DELAYED CONTRAST-ENHANCED IMAGING. STABLE MARKED CIRCUMFERENTIAL GALLBLADDER WALL THICKENING/EDEMA WITH MILD PERICHOLECYSTIC FLUID PRESUMABLY REPRESENTING CHRONIC CHOLECYSTITIS GIVEN PRIOR IMAGING FINDINGS. Acute Abdomen Series 11/28/16 03:30 IMPRESSION: NO RADIOGRAPHIC EVIDENCE FOR ACUTE ABDOMINAL DISEASE. Hepatobiliary Scan Nuclear Medicine 11/28/16 10:17 IMPRESSION: The findings are concerning for obstruction of the common bile duct. Clinical correlation. Abdomen/Pelvis CT 11/28/16 11:16 IMPRESSION: 1. SIGMOID DIVERTICULITIS. SMALL AMOUNT OF GAS IS PRESENT IN THE MESENTERIC VEIN DRAINING THE SIGMOID COLON, SIMILAR TO THE PREVIOUS STUDY, LIKELY DUE TO BOWEL INFLAMMATION/INFECTION. ALSO SMALL AMOUNT OF PORTAL VENOUS GAS IN THE LIVER RELATED TO THIS FINDING. NO FREE AIR OR OTHER ACUTE CHANGES. 2. CONTRACTED GALLBLADDER WITH GALLBLADDER WALL THICKENING. THE PATIENT IS SCHEDULED FOR HEPATOBILIARY SCAN TO DETERMINE IF THERE MAY BE FINDINGS TO INDICATE CHOLECYSTITIS. 3. NO OTHER SIGNIFICANT OR ACUTE PROCESS IN THE ABDOMEN OR PELVIS. KUB X-Ray 11/29/16 06:00 IMPRESSION: NO RADIOGRAPHIC EVIDENCE FOR ACUTE ABDOMINAL DISEASE. Chest X-Ray 11/30/16 00:00 IMPRESSION: No significant interval change. Please also see CT, chest report from the same day. Chest/Abdomen CTA 11/30/16 00:00 IMPRESSION: 1. No evidence of pulmonary embolus. 2. Small right pleural effusion. Airspace disease in the right upper and lower lobes. In the appropriate clinical setting this is consistent with pneumonia. 3. Small amount of pneumoperitoneum status post recent cholecystectomy. Assessment & Plan - Diagnosis (1) Acute cholecystitis Is this a current diagnosis for this admission?: YesPlan: has had a cholycystectomy (2) Sigmoid diverticulitis Is this a current diagnosis for this admission?: YesPlan: on primaxin, vanco and gent (3) Anemia Qualifiers: Anemia type: unspecified type Qualified Code(s): D64.9 - Anemia, unspecified Is this a current diagnosis for this admission?: YesPlan: hemoglobin has remained stable (4) Essential hypertension Is this a current diagnosis for this admission?: YesPlan: pressures have been stable (5) Hypokalemia Is this a current diagnosis for this admission?: Yes (6) Metabolic acidosis Is this a current diagnosis for this admission?: YesPlan: resolved (7) Thrombocytopenia Is this a current diagnosis for this admission?: YesPlan: platelets have stabilized (8) Elevated LFTs Is this a current diagnosis for this admission?: YesPlan: most likely from acute cholycystitis - Time Time Spent with patient: 25-34 minutes - Inpatient Certification Medical Necessity: Need For IV Fluids, Need for IV Antibiotics
--- NOTE | 2016-12-02 19:14 | PDOC CONSULTATION ---
Consultation Consult Date: 12/02/16 History of Present Illness Admission Date/PCP: 11/28/16 14:46 History of Present Illness: This is a 51-year-old patient who was admitted on 11/28/2016 with a 3 day history of recurrent right upper quadrant pain, fever, chills, and diarrhea. He had 3 episodes at home each lasting between 30-40 minutes. The fourth episode was severe enough that he called the ambulance. The chills and fever were the most severe of his complaints. He continued to have diarrhea until a couple of days ago. He had some nausea and vomited a few times. He had just returned from [place] a few weeks back where he also had an episode of possible gastritis treated with an injection. On admission he had a CAT scan that showed left-sided diverticulosis with mild inflammation in the soft tissues adjacent to the sigmoid colon and a few gas bubbles within the mesenteric vein. There was prominent pericholecystic fluid around the gallbladder. An ultrasound of the abdomen performed 2 days prior to his admission was normal. He also had an MRI that showed mild intrahepatic dilation with marked circumferential gallbladder thickening and pericholecystic fluid. A HIDA scan also showed some accumulation of activity in the gallbladder but no activity in the small bowel at 2-1/2 hours. His white count was elevated with a low platelet count of 96. His bilirubin was 3 and this went as high as 4.8 on the day of admission. Lipase was normal. He had a cholecystectomy the next day on 11/29/2016 and this showed acute cholecystitis with partially necrotic gallbladder and pericholecystic bilious fluid collection. He has a JOSEPH drain in place that has had minimum drainage. Pathologic examination of his gallbladder did not show any gallstones Overall he is feeling better. His postoperative pain has mostly resolved and he has been tolerating full liquid diet. He denies any previous history of liver disease Past Medical History Cardiac Medical History: Reports: Hypertension Musculoskeltal Medical History: Reports: Arthritis - OA, Other - chronic back pain Psychiatric Medical History: Reports: Depression Past Surgical History Past Surgical History: Reports: None, Orthopedic Surgery Social History Smoking Status: Current Every Day Smoker Cigarettes Packs Per Day: 1 Frequency of Alcohol Use: None Hx Recreational Drug Use: No Drugs: None Hx Prescription Drug Abuse: No - Advance Directive Resuscitation Status: Full Code Family History Family History: Arthritis - Arthritis, Other - Gastrointestinal conditions Parental Family History Reviewed: No Children Family History Reviewed: NA Sibling(s) Family History Reviewed.: NA Medication/Allergy Home Medications: Cholecalciferol (Vitamin D3) [Vitamin D] 50,000 unit PO TU@1000 11/28/16 Gabapentin [Neurontin 300 mg Capsule] 300 mg PO Q8 11/28/16 Hydrocodone/Acetaminophen [[place] 10-325 mg Tablet] 1 tab PO QIDP PRN 11/28/16 Lisinopril [Prinivil] 20 mg PO DAILY 11/28/16 Pravastatin Sodium [Pravachol] 40 mg PO QHS 11/28/16 Allergies/Adverse Reactions: No Known Allergies Allergy (Verified 11/26/16 10:44) Review of Systems All systems: reviewed and no additional remarkable complaints except as stated Physical Exam Vital Signs: Temp Pulse Resp BP Pulse Ox 98.6 F 76 22 H 117/70 96 12/02/16 15:42 12/02/16 15:42 12/02/16 15:42 12/02/16 15:42 12/02/16 15:42 Intake & Output 12/01/16 12/02/16 12/03/16 06:59 06:59 06:59 Intake Total 3933 4135 1518 Output Total 570 83 20 Balance 3363 4052 1498 Weight 81.1 kg 84 kg Exam: General: Patient is alert and looks well. HEENT: There is no pallor or jaundice. PERRLA. Oropharynx normal Respiratory: No chest deformity. No respiratory distress. Chest wall palpitation was unremarkable. Breath sounds were normal Cardiovascular: Heart sounds 1 and 2 normal with no murmurs. Abdominal: Slightly distended with evidence for recent cholecystectomy. Liver and spleen not palpable. No ascites demonstrated. Bowel sounds active. Rectal examination was deferred. Extremities: No edema Neurological: Alert and oriented x4. Grossly nonfocal. Normal speech Skin: No significant rash Psychological: Normal affect Results Laboratory Results: 12/02/16 05:06 12/02/16 05:06 12/02/16 12/02/16 12/02/16 05:06 05:06 05:06 WBC 9.2 RBC 3.02 L Hgb 9.4 L Hct 26.7 L MCV 89 MCH 31.3 MCHC 35.3 RDW 14.0 Plt Count 50 L Sodium 135.9 L Potassium 3.4 L Chloride 104 Carbon Dioxide 25 Anion Gap 7 BUN 15 Creatinine 0.61 Est GFR ( Amer) > 60 Est GFR (Non-Af Amer) > 60 Glucose 110 Calcium 7.4 L Magnesium 2.0 Total Bilirubin 3.4 H AST 72 H ALT 73 H Alkaline Phosphatase 201 H Total Protein 4.1 L Albumin 2.0 L Impressions: Abdomen MRI 11/28/16 00:00 IMPRESSION: STABLE MILD INTRAHEPATIC BILIARY DUCT DILATATION WITH PERIODONTAL EDEMA SUGGESTIVE OF CHOLANGITIS GIVEN FINDINGS ON PRIOR HEPATOBILIARY SCAN. NO RETAINED STONE OR SIGNIFICANT DILATATION OF THE COMMON BILE DUCT IDENTIFIED. DIFFERENTIAL INCLUDES OCCULT CHOLANGIO CARCINOMA AT THE [place] HEPATIS WHICH MAY ONLY BE VISIBLE WITH DELAYED CONTRAST-ENHANCED IMAGING. STABLE MARKED CIRCUMFERENTIAL GALLBLADDER WALL THICKENING/EDEMA WITH MILD PERICHOLECYSTIC FLUID PRESUMABLY REPRESENTING CHRONIC CHOLECYSTITIS GIVEN PRIOR IMAGING FINDINGS. Acute Abdomen Series 11/28/16 03:30 IMPRESSION: NO RADIOGRAPHIC EVIDENCE FOR ACUTE ABDOMINAL DISEASE. Hepatobiliary Scan Nuclear Medicine 11/28/16 10:17 IMPRESSION: The findings are concerning for obstruction of the common bile duct. Clinical correlation. Abdomen/Pelvis CT 11/28/16 11:16 IMPRESSION: 1. SIGMOID DIVERTICULITIS. SMALL AMOUNT OF GAS IS PRESENT IN THE MESENTERIC VEIN DRAINING THE SIGMOID COLON, SIMILAR TO THE PREVIOUS STUDY, LIKELY DUE TO BOWEL INFLAMMATION/INFECTION. ALSO SMALL AMOUNT OF PORTAL VENOUS GAS IN THE LIVER RELATED TO THIS FINDING. NO FREE AIR OR OTHER ACUTE CHANGES. 2. CONTRACTED GALLBLADDER WITH GALLBLADDER WALL THICKENING. THE PATIENT IS SCHEDULED FOR HEPATOBILIARY SCAN TO DETERMINE IF THERE MAY BE FINDINGS TO INDICATE CHOLECYSTITIS. 3. NO OTHER SIGNIFICANT OR ACUTE PROCESS IN THE ABDOMEN OR PELVIS. KUB X-Ray 11/29/16 06:00 IMPRESSION: NO RADIOGRAPHIC EVIDENCE FOR ACUTE ABDOMINAL DISEASE. Chest X-Ray 11/30/16 00:00 IMPRESSION: No significant interval change. Please also see CT, chest report from the same day. Chest/Abdomen CTA 11/30/16 00:00 IMPRESSION: 1. No evidence of pulmonary embolus. 2. Small right pleural effusion. Airspace disease in the right upper and lower lobes. In the appropriate clinical setting this is consistent with pneumonia. 3. Small amount of pneumoperitoneum status post recent cholecystectomy. Assessment & Plan - Diagnosis (1) Jaundice Is this a current diagnosis for this admission?: YesPlan: His symptoms of recurrent right upper quadrant pain, fever, chills, thickened gallbladder wall and pericholecystic fluid is consistent with cholecystitis. This is acalculus as there was no stones noted on his pathology and he did have significant inflammation at surgery. He had an MRCP that showed no significant biliary duct disease. His liver disease is also probably related to the cholecystitis and less likely from choledocholithiasis. He is doing well postoperatively and I will hold off on endoscopic intervention at this time. If he starts having episodes of pain and fever with increase in his LFTs an ERCP will then be performed. We should continue to monitor his LFTs and I will follow him in the office. (2) Right upper quadrant abdominal pain Is this a current diagnosis for this admission?: Yes (3) Acute cholecystitis Is this a current diagnosis for this admission?: Yes (4) Elevated LFTs Is this a current diagnosis for this admission?: Yes
[2016-12-02 20:31] LABS: GENTAMICIN-TROUGH 1.4 ug/mL (<2.0)
[2016-12-02 22:28] LABS: GENTAMICIN-PEAK 7.6 ug/mL (5.0-10.0)
[2016-12-03] MEDS: VANCOMYCIN HCL 1,000 MG in DEXTROSE 5%-WATER 250 ML IV SCH ×3 (01:45→19:00)
[2016-12-03] MEDS: HYDROMORPHONE HCL INJ/PF 2 MG/ML AMPULE IV PRN ×6 (02:36→23:29)
[2016-12-03] MEDS: IMIPENEM/CILASTATIN SODIUM 500 MG in NORMAL SALINE 100 ML IV SCH ×4 (03:45→21:11)
[2016-12-03] MEDS: GENTAMICIN SULFATE 160 MG in DEXTROSE 5%-WATER 100 ML IV SCH ×2 (04:48→18:09)
[2016-12-03 06:30] LABS: ALANINE AMINOTRANSFERASE 60 U/L (21-72); ALKALINE PHOSPHATASE 222 U/L (38-126); ANION GAP 6 (5-19); ASPARTATE AMINO TRANSFERASE 44 U/L (17-59); BILIRUBIN,TOTAL 2.9 mg/dL (0.2-1.3); BLOOD UREA NITROGEN 11 mg/dL (7-20); CALCIUM 7.4 mg/dL (8.4-10.2); CARBON DIOXIDE 27 mmol/L (22-30); CHLORIDE 101 mmol/L (98-107); CREATININE RESULT 0.57 mg/dL (0.52-1.25); GLUCOSE 117 mg/dL (75-110); POTASSIUM 3.5 mmol/L (3.6-5.0); TOTAL PROTEIN 4.4 g/dL (6.3-8.2)
[2016-12-03 07:34] LABS: HEMATOCRIT 27.9 % (37.9-51.0); HEMOGLOBIN 9.9 g/dL (13.5-17.0); HGB HCT DIFFERENCE 1.8; MEAN CORPUSCULAR HEMOGLOBIN 31.8 pg (27.0-33.4); MEAN CORPUSCULAR HGB CONC 35.5 g/dL (32.0-36.0); MEAN CORPUSCULAR VOLUME 90 fl (80-97); RED BLOOD COUNT 3.11 10^6/uL (4.35-5.55); RED CELL DISTRIBUTION WIDTH 14.1 % (11.5-14.0); WHITE BLOOD COUNT 10.7 10^3/uL (4.0-10.5)
[2016-12-03 08:03] LABS: BASOPHILS % (MANUAL) 0 % (0-2); EOSINOPHILS % (MANUAL) 0 % (0-6); LYMPHOCYTES % (MANUAL) 14 % (13-45); TOTAL CELLS COUNTED 100
[2016-12-03 08:04] LABS: HYPOCHROMASIA SLIGHT; OVALOCYTES 1+; POIKILOCYTOSIS 1+; POLYCHROMASIA SLIGHT; TEAR DROP CELLS SLIGHT; TOXIC GRANULATION 1+
[2016-12-03] MEDS: IPRATROPIUM/ALBUTEROL 0.5-2.5 MG/3 ML AMPUL NEB PRN (09:36)
[2016-12-03 11:18] LABS: PROTHROMBIN TIME 14.1 SEC (11.4-15.4)
[2016-12-03 11:19] LABS: PARTIAL THROMBOPLASTIN TIME 31.6 SEC (23.5-35.8)
[2016-12-03 11:24] LABS: HEMATOCRIT 25.9 % (37.9-51.0); HEMOGLOBIN 9.1 g/dL (13.5-17.0); HGB HCT DIFFERENCE 1.4; MEAN CORPUSCULAR HEMOGLOBIN 31.8 pg (27.0-33.4); MEAN CORPUSCULAR HGB CONC 35.3 g/dL (32.0-36.0); MEAN CORPUSCULAR VOLUME 90 fl (80-97); RED BLOOD COUNT 2.87 10^6/uL (4.35-5.55); RED CELL DISTRIBUTION WIDTH 14.2 % (11.5-14.0); WHITE BLOOD COUNT 8.9 10^3/uL (4.0-10.5)
[2016-12-03 11:30] LABS: CREATININE RESULT 0.56 mg/dL (0.52-1.25)
[2016-12-03] MEDS: ENOXAPARIN SODIUM INJ 40 MG/0.4 ML DISP.SYRIN SUBCUT SCH (11:49)
--- NOTE | 2016-12-03 12:05 | PDOC PROGRESS REPORT ---
Subjective Progress Note for:: 12/03/16 Subjective:: Denies any complaints. He was evaluated by gastroenterology last evening. Physical Exam Vital Signs: Temp Pulse Resp BP Pulse Ox 98.1 F 80 14 127/72 H 93 12/03/16 07:23 12/03/16 09:36 12/03/16 09:36 12/03/16 07:23 12/03/16 09:36 Intake & Output 12/02/16 12/03/16 12/04/16 06:59 06:59 06:59 Intake Total 4135 2959 Output Total 83 170 Balance 4052 2789 Weight 84 kg 83.4 kg General appearance: PRESENT: no acute distress Eye exam: PRESENT: conjunctiva pink. ABSENT: scleral icterus Mouth exam: PRESENT: moist, tongue midline Neck exam: ABSENT: JVD Respiratory exam: PRESENT: clear to auscultation tori. ABSENT: rales, rhonchi, wheezes Cardiovascular exam: PRESENT: RRR. ABSENT: diastolic murmur, rubs, systolic murmur GI/Abdominal exam: PRESENT: normal bowel sounds, soft, other - Drain in place. ABSENT: distended, guarding, mass, organolmegaly, rebound, tenderness Extremities exam: ABSENT: calf tenderness, clubbing, pedal edema Neurological exam: PRESENT: alert, awake, oriented to person, oriented to place , oriented to time, oriented to situation, CN II-XII grossly intact. ABSENT: motor sensory deficit Psychiatric exam: PRESENT: appropriate affect Skin exam: PRESENT: dry, intact, warm. ABSENT: cyanosis, rash Results Laboratory Results: 12/03/16 11:00 12/03/16 11:00 12/03/16 12/03/16 12/03/16 05:49 05:49 07:13 WBC Cancelled 10.7 H RBC Cancelled 3.11 L Hgb Cancelled 9.9 L Hct Cancelled 27.9 L MCV Cancelled 90 MCH Cancelled 31.8 MCHC Cancelled 35.5 RDW Cancelled 14.1 H Plt Count Cancelled 87 L Seg Neutrophils % Cancelled Not Reportable Lymphocytes % Cancelled Not Reportable Monocytes % Cancelled Not Reportable Eosinophils % Cancelled Not Reportable Basophils % Cancelled Not Reportable Absolute Neutrophils Cancelled Not Reportable Absolute Lymphocytes Cancelled Not Reportable Absolute Monocytes Cancelled Not Reportable Absolute Eosinophils Cancelled Not Reportable Absolute Basophils Cancelled Not Reportable Sodium 134.0 L Potassium 3.5 L Chloride 101 Carbon Dioxide 27 Anion Gap 6 BUN 11 Creatinine 0.57 Est GFR ( Amer) > 60 Est GFR (Non-Af Amer) > 60 Glucose 117 H Calcium 7.4 L Total Bilirubin 2.9 H AST 44 ALT 60 Alkaline Phosphatase 222 H Total Protein 4.4 L Albumin 2.0 L 12/03/16 12/03/16 11:00 11:00 WBC 8.9 RBC 2.87 L Hgb 9.1 L Hct 25.9 L MCV 90 MCH 31.8 MCHC 35.3 RDW 14.2 H Plt Count 92 L Seg Neutrophils % Lymphocytes % Monocytes % Eosinophils % Basophils % Absolute Neutrophils Absolute Lymphocytes Absolute Monocytes Absolute Eosinophils Absolute Basophils Sodium Potassium Chloride Carbon Dioxide Anion Gap BUN Creatinine 0.56 Est GFR ( Amer) > 60 Est GFR (Non-Af Amer) > 60 Glucose Calcium Total Bilirubin AST ALT Alkaline Phosphatase Total Protein Albumin Impressions: Abdomen MRI 11/28/16 00:00 IMPRESSION: STABLE MILD INTRAHEPATIC BILIARY DUCT DILATATION WITH PERIODONTAL EDEMA SUGGESTIVE OF CHOLANGITIS GIVEN FINDINGS ON PRIOR HEPATOBILIARY SCAN. NO RETAINED STONE OR SIGNIFICANT DILATATION OF THE COMMON BILE DUCT IDENTIFIED. DIFFERENTIAL INCLUDES OCCULT CHOLANGIO CARCINOMA AT THE [place] HEPATIS WHICH MAY ONLY BE VISIBLE WITH DELAYED CONTRAST-ENHANCED IMAGING. STABLE MARKED CIRCUMFERENTIAL GALLBLADDER WALL THICKENING/EDEMA WITH MILD PERICHOLECYSTIC FLUID PRESUMABLY REPRESENTING CHRONIC CHOLECYSTITIS GIVEN PRIOR IMAGING FINDINGS. Acute Abdomen Series 11/28/16 03:30 IMPRESSION: NO RADIOGRAPHIC EVIDENCE FOR ACUTE ABDOMINAL DISEASE. Hepatobiliary Scan Nuclear Medicine 11/28/16 10:17 IMPRESSION: The findings are concerning for obstruction of the common bile duct. Clinical correlation. Abdomen/Pelvis CT 11/28/16 11:16 IMPRESSION: 1. SIGMOID DIVERTICULITIS. SMALL AMOUNT OF GAS IS PRESENT IN THE MESENTERIC VEIN DRAINING THE SIGMOID COLON, SIMILAR TO THE PREVIOUS STUDY, LIKELY DUE TO BOWEL INFLAMMATION/INFECTION. ALSO SMALL AMOUNT OF PORTAL VENOUS GAS IN THE LIVER RELATED TO THIS FINDING. NO FREE AIR OR OTHER ACUTE CHANGES. 2. CONTRACTED GALLBLADDER WITH GALLBLADDER WALL THICKENING. THE PATIENT IS SCHEDULED FOR HEPATOBILIARY SCAN TO DETERMINE IF THERE MAY BE FINDINGS TO INDICATE CHOLECYSTITIS. 3. NO OTHER SIGNIFICANT OR ACUTE PROCESS IN THE ABDOMEN OR PELVIS. KUB X-Ray 11/29/16 06:00 IMPRESSION: NO RADIOGRAPHIC EVIDENCE FOR ACUTE ABDOMINAL DISEASE. Chest X-Ray 11/30/16 00:00 IMPRESSION: No significant interval change. Please also see CT, chest report from the same day. Chest/Abdomen CTA 11/30/16 00:00 IMPRESSION: 1. No evidence of pulmonary embolus. 2. Small right pleural effusion. Airspace disease in the right upper and lower lobes. In the appropriate clinical setting this is consistent with pneumonia. 3. Small amount of pneumoperitoneum status post recent cholecystectomy. Assessment & Plan - Diagnosis (1) Acute cholecystitis Is this a current diagnosis for this admission?: YesPlan: has had a cholycystectomy (2) Sigmoid diverticulitis Is this a current diagnosis for this admission?: YesPlan: on primaxin, vanco and gent (3) Anemia Qualifiers: Anemia type: unspecified type Qualified Code(s): D64.9 - Anemia, unspecified Is this a current diagnosis for this admission?: YesPlan: hemoglobin has remained stable (4) Essential hypertension Is this a current diagnosis for this admission?: YesPlan: pressures have been stable (5) Hypokalemia Is this a current diagnosis for this admission?: Yes (6) Metabolic acidosis Is this a current diagnosis for this admission?: YesPlan: resolved (7) Thrombocytopenia Is this a current diagnosis for this admission?: YesPlan: platelets have stabilized (8) Elevated LFTs Is this a current diagnosis for this admission?: YesPlan: most likely from acute cholycystitis - Time Time Spent with patient: 25-34 minutes - Inpatient Certification Medical Necessity: Need Close Monitoring Due to Risk of Patient Decompensation, Need for IV Antibiotics
[2016-12-03 12:52] LABS: ALANINE AMINOTRANSFERASE 65 U/L (21-72); ALBUMIN 2.1 g/dL (3.5-5.0); ALKALINE PHOSPHATASE 244 U/L (38-126); ASPARTATE AMINO TRANSFERASE 42 U/L (17-59); BILIRUBIN,DIRECT 2.1 mg/dL (0.0-0.4); TOTAL PROTEIN 4.4 g/dL (6.3-8.2)
--- NOTE | 2016-12-03 13:03 | PROGRESS NOTE E ---
Progress Note NAME: MONAE SORTO : 1965 AGE: 51Y DATE: 12/03/2016 ROOM: 325 SUBJECTIVE: This is the fourth postop day post laparoscopic cholecystectomy. He remains afebrile. Denies any significant abdominal pains. JOSEPH drain has been decreasing. He is taking primarily liquids with small amounts of soft diet. He has been ambulating. His lab showed his bilirubin is coming down. We are waiting for the LFT result today. His alkaline phos remains slightly elevated. Alkaline phosphatase is at 222 this morning. AST down to normal at 44 as well as ALT at 60. His total bilirubin is down 2.9 from 3.4 yesterday and direct bilirubin is 2.0 today from 2.8 yesterday. His white count came down to normal this morning at 8.9 and his hemoglobin is 9.1 from 9.9 yesterday. PLAN: If he is able to take enough p.o. intake and the pains are tolerable with p.o. pain medications, I might be able to discharge him later today or at the latest tomorrow morning. DICTATING PHYSICIAN: CAMILA WEBER M.D. [id number] PHY#: [id number] ID: [id number] JOB#: [id number] ACCT: [id number] cc: >
[2016-12-04] MEDS: VANCOMYCIN HCL 1,000 MG in DEXTROSE 5%-WATER 250 ML IV SCH ×3 (02:39→19:19)
[2016-12-04] MEDS: IMIPENEM/CILASTATIN SODIUM 500 MG in NORMAL SALINE 100 ML IV SCH ×4 (02:40→21:32)
[2016-12-04] MEDS: HYDROMORPHONE HCL INJ/PF 2 MG/ML AMPULE IV PRN ×2 (02:48→05:51)
[2016-12-04 05:37] LABS: ABSOLUTE BASOPHILS # (AUTO) 0.1 10^3/uL (0.0-0.2); ABSOLUTE EOSINOPHILS # (AUTO) 0.1 10^3/uL (0.0-0.6); ABSOLUTE LYMPHOCYTES (AUTO) 1.3 10^3/uL (0.5-4.7); ABSOLUTE MONOCYTES (AUTO) 0.9 10^3/uL (0.1-1.4); ABSOLUTE NEUT (AUTO) 8.1 10^3/uL (1.7-8.2); BASOPHILS % (AUTO) 0.8 % (0-2); EOSINOPHILS % (AUTO) 0.8 % (0-6); HEMATOCRIT 24.9 % (37.9-51.0); HEMOGLOBIN 8.9 g/dL (13.5-17.0); HGB HCT DIFFERENCE 1.8; LYMPHOCYTES % (AUTO) 12.2 % (13-45); MEAN CORPUSCULAR HGB CONC 35.9 g/dL (32.0-36.0); MEAN CORPUSCULAR VOLUME 89 fl (80-97); MONOCYTES % (AUTO) 8.4 % (3-13); RED BLOOD COUNT 2.79 10^6/uL (4.35-5.55); RED CELL DISTRIBUTION WIDTH 14.3 % (11.5-14.0); SEGMENTED NEUTROPHILS % (AUTO) 77.8 % (42-78); WHITE BLOOD COUNT 10.3 10^3/uL (4.0-10.5)
[2016-12-04] MEDS: GENTAMICIN SULFATE 160 MG in DEXTROSE 5%-WATER 100 ML IV SCH ×2 (05:43→17:46)
[2016-12-04 05:45] LABS: ANION GAP 6 (5-19); BLOOD UREA NITROGEN 10 mg/dL (7-20); CALCIUM 7.5 mg/dL (8.4-10.2); CARBON DIOXIDE 29 mmol/L (22-30); CHLORIDE 100 mmol/L (98-107); CREATININE RESULT 0.63 mg/dL (0.52-1.25); GLUCOSE 122 mg/dL (75-110); POTASSIUM 3.4 mmol/L (3.6-5.0); SODIUM 135.4 mmol/L (137-145)
[2016-12-04] MEDS ORDERED: OXYCODONE-ACETAMINOPHEN 5-325 MG TABLET PO PRN (08:27)
[2016-12-04] MEDS ORDERED: ONDANSETRON HCL INJ/PF 4 MG/2 ML SDV IV PRN (08:30)
--- NOTE | 2016-12-04 08:33 | PROGRESS NOTE E ---
Progress Note NAME: MONAE SORTO : 1965 AGE: 51Y DATE: 12/04/2016 ROOM: 325 SUBJECTIVE: This is about the fifth postoperative day for the patient. He had a laparoscopic cholecystectomy for acute acalculous cholecystitis with pericholecystic fluid. This morning, the JOSEPH drain about 200 mL of serosanguineous in the past 12 hours. He is complaining of lower abdominal pains and mild tenderness of that area. The rest of the incisions appear to be clean and dry. PLAN: He is going to be started on soft diet today. His white count this morning is 10.3. He probably needs another round of IV antibiotics and possibly discontinue the Gregg-Schmitt drain in the morning prior to discharge. Also, he might not need vancomycin and that could probably be held. He needs to be continued on the other antibiotics. DICTATING PHYSICIAN: CAMILA WEBER M.D. [id number] PHY#: [id number] ID: [id number] JOB#: [id number] ACCT: [id number] cc: >
[2016-12-04] MEDS: IPRATROPIUM/ALBUTEROL 0.5-2.5 MG/3 ML AMPUL NEB PRN (08:51)
[2016-12-04] MEDS: ENOXAPARIN SODIUM INJ 40 MG/0.4 ML DISP.SYRIN SUBCUT SCH (10:57)
--- NOTE | 2016-12-04 12:32 | PDOC PROGRESS REPORT ---
Subjective Progress Note for:: 12/04/16 Subjective:: Complains of pain in his right hip. Also had a fever this morning. Physical Exam Vital Signs: Temp Pulse Resp BP Pulse Ox 102.7 F H 109 H 16 128/78 H 100 12/04/16 10:05 12/04/16 08:51 12/04/16 08:51 12/04/16 07:29 12/04/16 08:51 Intake & Output 12/03/16 12/04/16 12/05/16 06:59 06:59 06:59 Intake Total 2959 3138 Output Total 170 295 Balance 2789 2843 Weight 83.4 kg 82.1 kg General appearance: PRESENT: no acute distress Eye exam: PRESENT: conjunctiva pink. ABSENT: scleral icterus Mouth exam: PRESENT: moist, tongue midline Neck exam: ABSENT: JVD Respiratory exam: PRESENT: clear to auscultation tori. ABSENT: rales, rhonchi, wheezes Cardiovascular exam: PRESENT: RRR. ABSENT: diastolic murmur, rubs, systolic murmur GI/Abdominal exam: PRESENT: normal bowel sounds, soft, other - Drain in place the right upper quadrant. ABSENT: distended, guarding, mass, organolmegaly, rebound, tenderness Extremities exam: ABSENT: calf tenderness, clubbing, pedal edema Neurological exam: PRESENT: alert, awake, oriented to person, oriented to place , oriented to time, oriented to situation, CN II-XII grossly intact. ABSENT: motor sensory deficit Psychiatric exam: PRESENT: appropriate affect Results Laboratory Results: 12/04/16 05:01 12/04/16 05:01 12/03/16 12/04/16 12/04/16 11:00 05:01 05:01 WBC 10.3 RBC 2.79 L Hgb 8.9 L Hct 24.9 L MCV 89 MCH 32.0 MCHC 35.9 RDW 14.3 H Plt Count 122 L Seg Neutrophils % 77.8 Lymphocytes % 12.2 L Monocytes % 8.4 Eosinophils % 0.8 Basophils % 0.8 Absolute Neutrophils 8.1 Absolute Lymphocytes 1.3 Absolute Monocytes 0.9 Absolute Eosinophils 0.1 Absolute Basophils 0.1 Sodium 135.4 L Potassium 3.4 L Chloride 100 Carbon Dioxide 29 Anion Gap 6 BUN 10 Creatinine 0.63 Est GFR ( Amer) > 60 Est GFR (Non-Af Amer) > 60 Glucose 122 H Calcium 7.5 L Total Bilirubin 3.0 H AST 42 ALT 65 Alkaline Phosphatase 244 H Total Protein 4.4 L Albumin 2.1 L Impressions: Abdomen MRI 11/28/16 00:00 IMPRESSION: STABLE MILD INTRAHEPATIC BILIARY DUCT DILATATION WITH PERIODONTAL EDEMA SUGGESTIVE OF CHOLANGITIS GIVEN FINDINGS ON PRIOR HEPATOBILIARY SCAN. NO RETAINED STONE OR SIGNIFICANT DILATATION OF THE COMMON BILE DUCT IDENTIFIED. DIFFERENTIAL INCLUDES OCCULT CHOLANGIO CARCINOMA AT THE EDMOND HEPATIS WHICH MAY ONLY BE VISIBLE WITH DELAYED CONTRAST-ENHANCED IMAGING. STABLE MARKED CIRCUMFERENTIAL GALLBLADDER WALL THICKENING/EDEMA WITH MILD PERICHOLECYSTIC FLUID PRESUMABLY REPRESENTING CHRONIC CHOLECYSTITIS GIVEN PRIOR IMAGING FINDINGS. Acute Abdomen Series 11/28/16 03:30 IMPRESSION: NO RADIOGRAPHIC EVIDENCE FOR ACUTE ABDOMINAL DISEASE. Hepatobiliary Scan Nuclear Medicine 11/28/16 10:17 IMPRESSION: The findings are concerning for obstruction of the common bile duct. Clinical correlation. Abdomen/Pelvis CT 11/28/16 11:16 IMPRESSION: 1. SIGMOID DIVERTICULITIS. SMALL AMOUNT OF GAS IS PRESENT IN THE MESENTERIC VEIN DRAINING THE SIGMOID COLON, SIMILAR TO THE PREVIOUS STUDY, LIKELY DUE TO BOWEL INFLAMMATION/INFECTION. ALSO SMALL AMOUNT OF PORTAL VENOUS GAS IN THE LIVER RELATED TO THIS FINDING. NO FREE AIR OR OTHER ACUTE CHANGES. 2. CONTRACTED GALLBLADDER WITH GALLBLADDER WALL THICKENING. THE PATIENT IS SCHEDULED FOR HEPATOBILIARY SCAN TO DETERMINE IF THERE MAY BE FINDINGS TO INDICATE CHOLECYSTITIS. 3. NO OTHER SIGNIFICANT OR ACUTE PROCESS IN THE ABDOMEN OR PELVIS. KUB X-Ray 11/29/16 06:00 IMPRESSION: NO RADIOGRAPHIC EVIDENCE FOR ACUTE ABDOMINAL DISEASE. Chest X-Ray 11/30/16 00:00 IMPRESSION: No significant interval change. Please also see CT, chest report from the same day. Chest/Abdomen CTA 11/30/16 00:00 IMPRESSION: 1. No evidence of pulmonary embolus. 2. Small right pleural effusion. Airspace disease in the right upper and lower lobes. In the appropriate clinical setting this is consistent with pneumonia. 3. Small amount of pneumoperitoneum status post recent cholecystectomy. Assessment & Plan - Diagnosis (1) Acute cholecystitis Is this a current diagnosis for this admission?: YesPlan: has had a cholycystectomy. Patient had a fever this morning. Will check abdominal CT to make certain there is no obvious fluid collection. He does not have a surgical abdomen on exam. (2) Sigmoid diverticulitis Is this a current diagnosis for this admission?: YesPlan: on primaxin, vanco and gent (3) Anemia Qualifiers: Anemia type: unspecified type Qualified Code(s): D64.9 - Anemia, unspecified Is this a current diagnosis for this admission?: YesPlan: hemoglobin has remained stable (4) Essential hypertension Is this a current diagnosis for this admission?: YesPlan: pressures have been stable (5) Hypokalemia Is this a current diagnosis for this admission?: Yes (6) Metabolic acidosis Is this a current diagnosis for this admission?: YesPlan: resolved (7) Thrombocytopenia Is this a current diagnosis for this admission?: YesPlan: platelets have stabilized (8) Elevated LFTs Is this a current diagnosis for this admission?: YesPlan: most likely from acute cholycystitis - Time Time Spent with patient: 25-34 minutes - Inpatient Certification Medical Necessity: Need Close Monitoring Due to Risk of Patient Decompensation
[2016-12-04] MEDS: OXYCODONE HCL IR 5 MG TABLET PO PRN ×3 (12:40→20:40)
[2016-12-04] MEDS ORDERED: NICOTINE 14 MG/24 HR PATCH.TD24 TD ONE (14:00)
[2016-12-04 14:47] LABS: PATH REVIEW PATHOLOGIST REVIEWED
--- NOTE | 2016-12-04 14:56 | RADIOLOGY REPORT (SQ) ---
EXAM DESCRIPTION: CT ABD/PELVIS WITH IV ORAL COMPLETED DATE/TIME: 12/04/2016 1:49 pm REASON FOR STUDY: fever, r/o abscess COMPARISON: 11/28/2016 TECHNIQUE: CT scan of the abdomen and pelvis performed using helical scanning technique with dynamic intravenous contrast injection. Oral contrast. Images reviewed with lung, soft tissue, and bone win dows. Reconstructed coronal and sagittal MPR images reviewed. Delayed images for evaluation of the ur inary system also acquired. All images stored on PACS. All CT scanners at this facility use dose modulation, iterative reconstruction, and/or weight based d osing when appropriate to reduce radiation dose to as low as reasonably achievable (ALARA). [facility]: Dose Right [facility]: CareDose [facility]: Dose Right [facility]: Teradose 4D [facility]: Hedgeable CONTRAST TYPE AND DOSE: contrast/concentration: Isovue 370.00 mg/ml; Total Contrast Delivered: 89.0 ml; Total Saline Delivered: 70.0 ml RENAL FUNCTION: Creatinine 0.6 BUN 10 RADIATION DOSE: Up-to-date CT equipment and radiation dose reduction techniques were employed. CTDIv ol: 8.0 - 11.2 mGy. DLP: 1022 mGy-cm.. LIMITATIONS: None. FINDINGS: LOWER CHEST: Minimal pleural effusions are present. Limited infiltrate versus subsegmenta l atelectasis suggested in each lower lobe posteriorly. Air bronchograms are present. LIVER: The liver is hypo attenuating with some prominent areas of normal attenuation suggesting focal fatty sparing. SPLEEN: Normal size. No focal lesions. PANCREAS: No masses. No significant calcifications. No adjacent inflammation or peripancreatic fluid collections. Pancreatic duct not dilated. GALLBLADDER: Surgically absent. ADRENAL GLANDS: No significant masses or asymmetry. RIGHT KIDNEY AND URETER: No solid masses. No significant calcifications. No hydronephrosis or hyd roureter. LEFT KIDNEY AND URETER: No solid masses. No significant calcifications. No hydronephrosis or hydr oureter. AORTA AND VESSELS: No aneurysm. No dissection. Renal arteries, SMA, celiac without stenosis. RETROPERITONEUM: No retroperitoneal adenopathy, hemorrhage or masses. BOWEL AND PERITONEAL CAVITY: Once again there are seen numerous diverticula arising from the descendi ng and sigmoid colon. There is mild stranding in the fat around the sigmoid colon. There is no defi nable or drainable fluid collection. A catheter is present in the abdomen. There is an area of homo geneous increased opacification associated with a loop of bowel in the right lower quadrant. See charles ge 30 series 601. This shows a density of 75 Hounsfield units. This is not present on prior 2 studi es. APPENDIX: Not identified. PELVIS: The urinary bladder is normal. ABDOMINAL WALL: There is a small amount of air in the anterior abdominal wall near the insertion site of the catheter. This is seen on images 26 through 34 series 5. BONES: Degenerative disc changes are seen in the lower lumbar spine. OTHER: There continues to be a small amount of air in the mesenteric vein draining the sigmoid colon. No significant air is seen in portal radicles in the liver at this time. IMPRESSION: 1. Subsegmental atelectasis versus infiltrate in each lower lobe. 2. There appears to be some degree of fatty infiltration of the liver with focal fatty sparing. 3. Sigmoid diverticulitis with apparent improvement since the earlier study. There is still a small amount of air in the mesenteric vein. 4. The gallbladder has been removed. 5. There is opacification the right lower quadrant that is of uncertain etiology and significance. It shows a density well above that of fluid. 6. No abscess is seen in the peritoneal cavity or elsewhere. 7. There is small amount of subcutaneous air anteriorly on the right likely associated with the cath eter placement. TECHNICAL DOCUMENTATION: JOB ID: [id number] Quality ID # [id number]: Final reports with documentation of one or more dose reduction techniques (e.g., Au tomated exposure control, adjustment of the mA and/or kV according to patient size, use of iterative reconstruction technique) 2010 [employer]- All Rights Reserved
[2016-12-04 18:30] LABS: CREATININE RESULT 0.69 mg/dL (0.52-1.25)
[2016-12-04 18:38] LABS: GENTAMICIN-TROUGH < 0.6 ug/mL (<2.0)
[2016-12-04 18:39] LABS: TROUGH DRAW TIME 1748
[2016-12-04 21:20] LABS: GENTAMICIN-PEAK 4.8 ug/mL (5.0-10.0)
[2016-12-05] MEDS: OXYCODONE HCL IR 5 MG TABLET PO PRN ×6 (00:17→22:45)
[2016-12-05] MEDS: IMIPENEM/CILASTATIN SODIUM 500 MG in NORMAL SALINE 100 ML IV SCH ×4 (03:00→20:50)
[2016-12-05] MEDS: VANCOMYCIN HCL 1,000 MG in DEXTROSE 5%-WATER 250 ML IV SCH ×3 (03:01→18:38)
[2016-12-05] MEDS: GENTAMICIN SULFATE 160 MG in DEXTROSE 5%-WATER 100 ML IV SCH ×2 (05:13→17:23)
[2016-12-05 06:09] LABS: HEMATOCRIT 26.6 % (37.9-51.0); HEMOGLOBIN 9.3 g/dL (13.5-17.0); HGB HCT DIFFERENCE 1.3; MEAN CORPUSCULAR HEMOGLOBIN 31.5 pg (27.0-33.4); MEAN CORPUSCULAR HGB CONC 34.8 g/dL (32.0-36.0); MEAN CORPUSCULAR VOLUME 91 fl (80-97); RED BLOOD COUNT 2.94 10^6/uL (4.35-5.55); RED CELL DISTRIBUTION WIDTH 14.2 % (11.5-14.0); WHITE BLOOD COUNT 9.5 10^3/uL (4.0-10.5)
[2016-12-05 06:15] LABS: ANION GAP 5 (5-19); BLOOD UREA NITROGEN 8 mg/dL (7-20); CALCIUM 7.5 mg/dL (8.4-10.2); CARBON DIOXIDE 28 mmol/L (22-30); CHLORIDE 101 mmol/L (98-107); GLUCOSE 133 mg/dL (75-110); SODIUM 134.2 mmol/L (137-145)
[2016-12-05 06:25] LABS: BAND NEUTROPHILS % (MANUAL) 6 % (3-5); BASOPHILS % (MANUAL) 0 % (0-2); EOSINOPHILS % (MANUAL) 3 % (0-6); LYMPHOCYTES % (MANUAL) 21 % (13-45); TOTAL CELLS COUNTED 100
[2016-12-05 06:26] LABS: ANISOCYTOSIS SLIGHT; TOXIC GRANULATION SLIGHT
[2016-12-05] MEDS: IPRATROPIUM/ALBUTEROL 0.5-2.5 MG/3 ML AMPUL NEB PRN (08:51)
[2016-12-05] MEDS: ENOXAPARIN SODIUM INJ 40 MG/0.4 ML DISP.SYRIN SUBCUT SCH (09:48)
--- NOTE | 2016-12-05 09:52 | PROGRESS NOTE E ---
Progress Note NAME: MONAE SORTO : 1965 AGE: 51Y DATE: 12/05/2016 ROOM: 325 SUBJECTIVE: The patient is six days postop laparoscopic cholecystectomy and drainage of pericholecystic fluid. He did have a complaint of abdominal pains yesterday and a CAT scan of the abdomen was done which showed atelectasis versus infiltrate in each lower lobe. There is sigmoid diverticulitis with improvement. There is still a small amount of air in the mesenteric vein. There is opacification in the right lower quadrant which showed a density above that of fluid and of uncertain etiology at this time. No obvious abscess noted in the cavity. Small amount of subcutaneous air on the right, likely associated with catheter placement. In view of the patient's pneumonia and diverticulitis and the presence still of a small amount of air in the mesenteric vein, patient needed to continue with IV antibiotic therapy. OBJECTIVE: On examination, his abdomen is soft and nontender, just some mild tenderness around the umbilicus where the trocar site was. He still continues to drain a considerable amount from the Gregg-Schmitt drain. PLAN: 1. Continue IV antibiotics. 2. Check his LFTs and see what his bilirubin level and LFTs are. He might need a GI consultation with all these findings on CAT scan and lab work. 3. Otherwise, he seems to be progressing relatively well. He had been a smoker and most likely the pneumonia is not helped with smoking being a factor and his having the pneumonia. DICTATING PHYSICIAN: CAMILA WEBER M.D. [id number] PHY#: [id number] ID: [id number] JOB#: [id number] ACCT: [id number] cc: >
[2016-12-05] MEDS: NICOTINE 14 MG/24 HR PATCH.TD24 TD SCH (09:59)
--- NOTE | 2016-12-05 13:14 | PDOC PROGRESS REPORT ---
Subjective Progress Note for:: 12/05/16 Subjective:: Denies any complaints. The patient had a CT yesterday that shows him to have bibasilar pneumonia versus atelectasis. Physical Exam Vital Signs: Temp Pulse Resp BP Pulse Ox 97.7 F 63 18 130/71 H 96 12/05/16 11:42 12/05/16 11:42 12/05/16 11:42 12/05/16 11:42 12/05/16 11:42 Intake & Output 12/04/16 12/05/16 12/06/16 06:59 06:59 06:59 Intake Total 3138 2820 222 Output Total 295 295 240 Balance 2843 2525 -18 Weight 82.1 kg 82.1 kg General appearance: PRESENT: no acute distress Eye exam: PRESENT: conjunctiva pink. ABSENT: scleral icterus Mouth exam: PRESENT: moist, tongue midline Neck exam: ABSENT: JVD Respiratory exam: PRESENT: clear to auscultation tori. ABSENT: rales, rhonchi, wheezes Cardiovascular exam: PRESENT: RRR. ABSENT: diastolic murmur, rubs, systolic murmur GI/Abdominal exam: PRESENT: normal bowel sounds, soft, other - Drain in the right upper quadrant.. ABSENT: distended, guarding, mass, organolmegaly, rebound, tenderness Extremities exam: ABSENT: calf tenderness, clubbing, pedal edema Neurological exam: PRESENT: alert, awake, oriented to person, oriented to place , oriented to time, oriented to situation, CN II-XII grossly intact. ABSENT: motor sensory deficit Psychiatric exam: PRESENT: appropriate affect Skin exam: PRESENT: dry, intact, warm. ABSENT: cyanosis, rash Results Laboratory Results: 12/05/16 05:48 12/05/16 05:48 12/03/16 12/04/16 12/05/16 07:13 17:48 04:26 WBC 10.7 H Cancelled RBC 3.11 L Cancelled Hgb 9.9 L Cancelled Hct 27.9 L Cancelled MCV 90 Cancelled MCH 31.8 Cancelled MCHC 35.5 Cancelled RDW 14.1 H Cancelled Plt Count 87 L Cancelled Seg Neutrophils % Cancelled Lymphocytes % Cancelled Monocytes % Cancelled Eosinophils % Cancelled Basophils % Cancelled Absolute Neutrophils Cancelled Absolute Lymphocytes Cancelled Absolute Monocytes Cancelled Absolute Eosinophils Cancelled Absolute Basophils Cancelled Sodium Potassium Chloride Carbon Dioxide Anion Gap BUN Creatinine 0.69 Est GFR ( Amer) > 60 Est GFR (Non-Af Amer) > 60 Glucose Calcium 12/05/16 12/05/16 12/05/16 04:26 05:48 05:48 WBC 9.5 RBC 2.94 L Hgb 9.3 L Hct 26.6 L MCV 91 MCH 31.5 MCHC 34.8 RDW 14.2 H Plt Count 154 Seg Neutrophils % Not Reportable Lymphocytes % Not Reportable Monocytes % Not Reportable Eosinophils % Not Reportable Basophils % Not Reportable Absolute Neutrophils Not Reportable Absolute Lymphocytes Not Reportable Absolute Monocytes Not Reportable Absolute Eosinophils Not Reportable Absolute Basophils Not Reportable Sodium Cancelled 134.2 L Potassium Cancelled 4.0 Chloride Cancelled 101 Carbon Dioxide Cancelled 28 Anion Gap Cancelled 5 BUN Cancelled 8 Creatinine Cancelled 0.70 Est GFR ( Amer) Cancelled > 60 Est GFR (Non-Af Amer) Cancelled > 60 Glucose Cancelled 133 H Calcium Cancelled 7.5 L Impressions: Abdomen MRI 11/28/16 00:00 IMPRESSION: STABLE MILD INTRAHEPATIC BILIARY DUCT DILATATION WITH PERIODONTAL EDEMA SUGGESTIVE OF CHOLANGITIS GIVEN FINDINGS ON PRIOR HEPATOBILIARY SCAN. NO RETAINED STONE OR SIGNIFICANT DILATATION OF THE COMMON BILE DUCT IDENTIFIED. DIFFERENTIAL INCLUDES OCCULT CHOLANGIO CARCINOMA AT THE EDMOND HEPATIS WHICH MAY ONLY BE VISIBLE WITH DELAYED CONTRAST-ENHANCED IMAGING. STABLE MARKED CIRCUMFERENTIAL GALLBLADDER WALL THICKENING/EDEMA WITH MILD PERICHOLECYSTIC FLUID PRESUMABLY REPRESENTING CHRONIC CHOLECYSTITIS GIVEN PRIOR IMAGING FINDINGS. Acute Abdomen Series 11/28/16 03:30 IMPRESSION: NO RADIOGRAPHIC EVIDENCE FOR ACUTE ABDOMINAL DISEASE. Hepatobiliary Scan Nuclear Medicine 11/28/16 10:17 IMPRESSION: The findings are concerning for obstruction of the common bile duct. Clinical correlation. KUB X-Ray 11/29/16 06:00 IMPRESSION: NO RADIOGRAPHIC EVIDENCE FOR ACUTE ABDOMINAL DISEASE. Chest X-Ray 11/30/16 00:00 IMPRESSION: No significant interval change. Please also see CT, chest report from the same day. Chest/Abdomen CTA 11/30/16 00:00 IMPRESSION: 1. No evidence of pulmonary embolus. 2. Small right pleural effusion. Airspace disease in the right upper and lower lobes. In the appropriate clinical setting this is consistent with pneumonia. 3. Small amount of pneumoperitoneum status post recent cholecystectomy. Abdomen/Pelvis CT 12/04/16 00:00 IMPRESSION: 1. Subsegmental atelectasis versus infiltrate in each lower lobe. 2. There appears to be some degree of fatty infiltration of the liver with focal fatty sparing. 3. Sigmoid diverticulitis with apparent improvement since the earlier study. There is still a small amount of air in the mesenteric vein. 4. The gallbladder has been removed. 5. There is opacification the right lower quadrant that is of uncertain etiology and significance. It shows a density well above that of fluid. 6. No abscess is seen in the peritoneal cavity or elsewhere. 7. There is small amount of subcutaneous air anteriorly on the right likely associated with the catheter placement. Assessment & Plan - Diagnosis (1) Acute cholecystitis Is this a current diagnosis for this admission?: YesPlan: has had a cholycystectomy. The liver enzymes are improving. Continues to have drainage from the surgical site.. (2) Sigmoid diverticulitis Is this a current diagnosis for this admission?: YesPlan: on primaxin, vanco and gent (3) Anemia Qualifiers: Anemia type: unspecified type Qualified Code(s): D64.9 - Anemia, unspecified Is this a current diagnosis for this admission?: YesPlan: hemoglobin has remained stable (4) Essential hypertension Is this a current diagnosis for this admission?: YesPlan: pressures have been stable (5) Hypokalemia Is this a current diagnosis for this admission?: Yes (6) Metabolic acidosis Is this a current diagnosis for this admission?: YesPlan: resolved (7) Thrombocytopenia Is this a current diagnosis for this admission?: YesPlan: platelets have stabilized (8) Elevated LFTs Is this a current diagnosis for this admission?: YesPlan: most likely from acute cholycystitis. GI has been consulted because of the possibility of retained stones. (9) Pneumonia Is this a current diagnosis for this admission?: YesPlan: The patient is on adequate antibiotic coverage for any pulmonary infection - Time Time Spent with patient: 25-34 minutes - Inpatient Certification Medical Necessity: Need Close Monitoring Due to Risk of Patient Decompensation, Need for IV Antibiotics
[2016-12-05 13:41] LABS: ALANINE AMINOTRANSFERASE 57 U/L (21-72); ALBUMIN 2.2 g/dL (3.5-5.0); ALKALINE PHOSPHATASE 279 U/L (38-126); ASPARTATE AMINO TRANSFERASE 59 U/L (17-59); BILIRUBIN,DIRECT 1.1 mg/dL (0.0-0.4); BILIRUBIN,TOTAL 1.6 mg/dL (0.2-1.3); TOTAL PROTEIN 4.8 g/dL (6.3-8.2)
[2016-12-05] MEDS: ALPRAZOLAM 0.5 MG TABLET PO PRN (21:02)
[2016-12-06] MEDS: VANCOMYCIN HCL 1,000 MG in DEXTROSE 5%-WATER 250 ML IV SCH ×3 (02:06→19:47)
[2016-12-06] MEDS: OXYCODONE HCL IR 5 MG TABLET PO PRN ×5 (02:52→20:23)
[2016-12-06] MEDS: IMIPENEM/CILASTATIN SODIUM 500 MG in NORMAL SALINE 100 ML IV SCH ×4 (03:54→21:32)
[2016-12-06] MEDS: GENTAMICIN SULFATE 160 MG in DEXTROSE 5%-WATER 100 ML IV SCH ×2 (05:40→18:18)
[2016-12-06 06:23] LABS: ANION GAP 7 (5-19); BLOOD UREA NITROGEN 7 mg/dL (7-20); CALCIUM 7.7 mg/dL (8.4-10.2); CARBON DIOXIDE 29 mmol/L (22-30); CHLORIDE 101 mmol/L (98-107); GLUCOSE 100 mg/dL (75-110); POTASSIUM 4.1 mmol/L (3.6-5.0); SODIUM 136.7 mmol/L (137-145)
[2016-12-06 06:45] LABS: HEMATOCRIT 25.6 % (37.9-51.0); HEMOGLOBIN 8.9 g/dL (13.5-17.0); HGB HCT DIFFERENCE 1.1; MEAN CORPUSCULAR HEMOGLOBIN 31.3 pg (27.0-33.4); MEAN CORPUSCULAR HGB CONC 34.7 g/dL (32.0-36.0); MEAN CORPUSCULAR VOLUME 90 fl (80-97); RED BLOOD COUNT 2.84 10^6/uL (4.35-5.55); RED CELL DISTRIBUTION WIDTH 14.4 % (11.5-14.0); WHITE BLOOD COUNT 7.4 10^3/uL (4.0-10.5)
[2016-12-06 07:11] LABS: BAND NEUTROPHILS % (MANUAL) 5 % (3-5); BASOPHILS % (MANUAL) 0 % (0-2); EOSINOPHILS % (MANUAL) 3 % (0-6); LYMPHOCYTES % (MANUAL) 12 % (13-45); TOTAL CELLS COUNTED 100
[2016-12-06 07:12] LABS: ANISOCYTOSIS SLIGHT; POLYCHROMASIA SLIGHT
--- NOTE | 2016-12-06 09:22 | PROGRESS NOTE E ---
Progress Note NAME: MONAE SORTO : 1965 AGE: 51Y DATE: 12/06/2016 ROOM: 325 SUBJECTIVE: This is the seventh postop day. His white count remain normal and his LFTs with the bilirubin dramatically coming down yesterday. He denies any abdominal pains this morning, though he said he had some mild discomfort in the left lower quadrant. His JOSEPH drainage still drained about 120 mL last 12 hours. PLAN: The plan is to continue with IV antibiotics for the next 24 hours. Will repeat all the blood work in the morning and possibly discharge tomorrow morning from the surgical standpoint. However, most likely, he will have to keep his JOSEPH drain until it decreases about less than 50 mL in 24 hours. This can be removed in the surgical clinic next week when he is seen in the clinic. DICTATING PHYSICIAN: CAMILA WEBER M.D. [id number] PHY#: [id number] ID: [id number] JOB#: [id number] ACCT: [id number] cc: >
[2016-12-06] MEDS: ENOXAPARIN SODIUM INJ 40 MG/0.4 ML DISP.SYRIN SUBCUT SCH (09:28)
[2016-12-06] MEDS: NICOTINE 14 MG/24 HR PATCH.TD24 TD SCH (09:28)
--- NOTE | 2016-12-06 09:50 | PDOC PROGRESS REPORT ---
Subjective Progress Note for:: 12/06/16 Subjective:: Denies any complaints. Physical Exam Vital Signs: Temp Pulse Resp BP Pulse Ox 98.2 F 70 18 122/69 94 12/06/16 07:28 12/06/16 07:28 12/06/16 07:28 12/06/16 07:28 12/06/16 07:28 Intake & Output 12/05/16 12/06/16 12/07/16 06:59 06:59 06:59 Intake Total 2820 2064 Output Total 295 695 Balance 2525 1369 Weight 82.1 kg General appearance: PRESENT: no acute distress Eye exam: PRESENT: conjunctiva pink. ABSENT: scleral icterus Ear exam: PRESENT: normal external ear exam Mouth exam: PRESENT: moist, tongue midline Neck exam: ABSENT: carotid bruit, JVD, lymphadenopathy, thyromegaly Respiratory exam: PRESENT: clear to auscultation tori. ABSENT: rales, rhonchi, wheezes Cardiovascular exam: PRESENT: RRR. ABSENT: diastolic murmur, rubs, systolic murmur GI/Abdominal exam: PRESENT: normal bowel sounds, soft, other - drain In place the right upper quadrant. ABSENT: distended, guarding, mass, organolmegaly, rebound, tenderness Extremities exam: ABSENT: calf tenderness, clubbing, pedal edema Neurological exam: PRESENT: alert, awake, oriented to person, oriented to place , oriented to time, oriented to situation, CN II-XII grossly intact. ABSENT: motor sensory deficit Psychiatric exam: PRESENT: appropriate affect Skin exam: PRESENT: dry, intact, warm. ABSENT: cyanosis, rash Results Laboratory Results: 12/06/16 05:34 12/06/16 05:34 12/05/16 12/06/16 12/06/16 05:48 05:34 05:34 WBC 7.4 RBC 2.84 L Hgb 8.9 L Hct 25.6 L MCV 90 MCH 31.3 MCHC 34.7 RDW 14.4 H Plt Count 216 Seg Neutrophils % Not Reportable Lymphocytes % Not Reportable Monocytes % Not Reportable Eosinophils % Not Reportable Basophils % Not Reportable Absolute Neutrophils Not Reportable Absolute Lymphocytes Not Reportable Absolute Monocytes Not Reportable Absolute Eosinophils Not Reportable Absolute Basophils Not Reportable Sodium 136.7 L Potassium 4.1 Chloride 101 Carbon Dioxide 29 Anion Gap 7 BUN 7 Creatinine 0.80 Est GFR ( Amer) > 60 Est GFR (Non-Af Amer) > 60 Glucose 100 Calcium 7.7 L Total Bilirubin 1.6 H AST 59 ALT 57 Alkaline Phosphatase 279 H Total Protein 4.8 L Albumin 2.2 L Impressions: Abdomen MRI 11/28/16 00:00 IMPRESSION: STABLE MILD INTRAHEPATIC BILIARY DUCT DILATATION WITH PERIODONTAL EDEMA SUGGESTIVE OF CHOLANGITIS GIVEN FINDINGS ON PRIOR HEPATOBILIARY SCAN. NO RETAINED STONE OR SIGNIFICANT DILATATION OF THE COMMON BILE DUCT IDENTIFIED. DIFFERENTIAL INCLUDES OCCULT CHOLANGIO CARCINOMA AT THE EDMOND HEPATIS WHICH MAY ONLY BE VISIBLE WITH DELAYED CONTRAST-ENHANCED IMAGING. STABLE MARKED CIRCUMFERENTIAL GALLBLADDER WALL THICKENING/EDEMA WITH MILD PERICHOLECYSTIC FLUID PRESUMABLY REPRESENTING CHRONIC CHOLECYSTITIS GIVEN PRIOR IMAGING FINDINGS. Acute Abdomen Series 11/28/16 03:30 IMPRESSION: NO RADIOGRAPHIC EVIDENCE FOR ACUTE ABDOMINAL DISEASE. Hepatobiliary Scan Nuclear Medicine 11/28/16 10:17 IMPRESSION: The findings are concerning for obstruction of the common bile duct. Clinical correlation. KUB X-Ray 11/29/16 06:00 IMPRESSION: NO RADIOGRAPHIC EVIDENCE FOR ACUTE ABDOMINAL DISEASE. Chest X-Ray 11/30/16 00:00 IMPRESSION: No significant interval change. Please also see CT, chest report from the same day. Chest/Abdomen CTA 11/30/16 00:00 IMPRESSION: 1. No evidence of pulmonary embolus. 2. Small right pleural effusion. Airspace disease in the right upper and lower lobes. In the appropriate clinical setting this is consistent with pneumonia. 3. Small amount of pneumoperitoneum status post recent cholecystectomy. Abdomen/Pelvis CT 12/04/16 00:00 IMPRESSION: 1. Subsegmental atelectasis versus infiltrate in each lower lobe. 2. There appears to be some degree of fatty infiltration of the liver with focal fatty sparing. 3. Sigmoid diverticulitis with apparent improvement since the earlier study. There is still a small amount of air in the mesenteric vein. 4. The gallbladder has been removed. 5. There is opacification the right lower quadrant that is of uncertain etiology and significance. It shows a density well above that of fluid. 6. No abscess is seen in the peritoneal cavity or elsewhere. 7. There is small amount of subcutaneous air anteriorly on the right likely associated with the catheter placement. Assessment & Plan - Diagnosis (1) Acute cholecystitis Is this a current diagnosis for this admission?: YesPlan: has had a cholycystectomy. The liver enzymes are improving. Continues to have drainage from the surgical site. (2) Sigmoid diverticulitis Is this a current diagnosis for this admission?: YesPlan: on primaxin, vanco and gent (3) Anemia Qualifiers: Anemia type: unspecified type Qualified Code(s): D64.9 - Anemia, unspecified Is this a current diagnosis for this admission?: YesPlan: hemoglobin has remained stable (4) Essential hypertension Is this a current diagnosis for this admission?: YesPlan: pressures have been stable (5) Hypokalemia Is this a current diagnosis for this admission?: YesPlan: Resolved (6) Metabolic acidosis Is this a current diagnosis for this admission?: YesPlan: resolved (7) Thrombocytopenia Is this a current diagnosis for this admission?: YesPlan: Resolved (8) Elevated LFTs Is this a current diagnosis for this admission?: YesPlan: most likely from acute cholycystitis. (9) Pneumonia Is this a current diagnosis for this admission?: YesPlan: The patient is on adequate antibiotic coverage for any pulmonary infection - Time Time Spent with patient: 25-34 minutes - Inpatient Certification Medical Necessity: Need Close Monitoring Due to Risk of Patient Decompensation, Need for IV Antibiotics
[2016-12-06 10:34] LABS: CREATININE RESULT 0.73 mg/dL (0.52-1.25)
[2016-12-06] MEDS: IPRATROPIUM/ALBUTEROL 0.5-2.5 MG/3 ML AMPUL NEB PRN (14:48)
[2016-12-07] MEDS: OXYCODONE HCL IR 5 MG TABLET PO PRN ×4 (01:02→13:07)
[2016-12-07] MEDS: VANCOMYCIN HCL 1,000 MG in DEXTROSE 5%-WATER 250 ML IV SCH ×2 (01:03→10:07)
[2016-12-07] MEDS: IMIPENEM/CILASTATIN SODIUM 500 MG in NORMAL SALINE 100 ML IV SCH ×2 (02:43→08:52)
[2016-12-07 04:54] LABS: ABSOLUTE BASOPHILS # (AUTO) 0.1 10^3/uL (0.0-0.2); ABSOLUTE EOSINOPHILS # (AUTO) 0.1 10^3/uL (0.0-0.6); ABSOLUTE LYMPHOCYTES (AUTO) 1.6 10^3/uL (0.5-4.7); ABSOLUTE MONOCYTES (AUTO) 0.8 10^3/uL (0.1-1.4); ABSOLUTE NEUT (AUTO) 5.2 10^3/uL (1.7-8.2); BASOPHILS % (AUTO) 0.7 % (0-2); EOSINOPHILS % (AUTO) 1.3 % (0-6); HEMATOCRIT 28.2 % (37.9-51.0); HEMOGLOBIN 9.5 g/dL (13.5-17.0); HGB HCT DIFFERENCE 0.3; MEAN CORPUSCULAR HGB CONC 33.7 g/dL (32.0-36.0); MEAN CORPUSCULAR VOLUME 92 fl (80-97); MONOCYTES % (AUTO) 10.3 % (3-13); RED BLOOD COUNT 3.06 10^6/uL (4.35-5.55); RED CELL DISTRIBUTION WIDTH 14.6 % (11.5-14.0); SEGMENTED NEUTROPHILS % (AUTO) 66.7 % (42-78); WHITE BLOOD COUNT 7.8 10^3/uL (4.0-10.5)
[2016-12-07 05:22] LABS: ALANINE AMINOTRANSFERASE 56 U/L (21-72); ALBUMIN 2.5 g/dL (3.5-5.0); ALKALINE PHOSPHATASE 242 U/L (38-126); ASPARTATE AMINO TRANSFERASE 38 U/L (17-59); BILIRUBIN,DIRECT 0.8 mg/dL (0.0-0.4); BILIRUBIN,TOTAL 1.1 mg/dL (0.2-1.3); TOTAL PROTEIN 5.3 g/dL (6.3-8.2)
[2016-12-07] MEDS: GENTAMICIN SULFATE 160 MG in DEXTROSE 5%-WATER 100 ML IV SCH (05:24)
[2016-12-07 08:21] VITALS: BP 115/66
[2016-12-07] MEDS: ENOXAPARIN SODIUM INJ 40 MG/0.4 ML DISP.SYRIN SUBCUT SCH (09:08)
[2016-12-07] MEDS: NICOTINE 14 MG/24 HR PATCH.TD24 TD SCH (09:09)
--- NOTE | 2016-12-07 12:27 | PROGRESS NOTE E ---
Progress Note NAME: MONAE SORTO : 1965 AGE: 51Y DATE: 12/07/2016 ROOM: 325 SUBJECTIVE: Patient remains afebrile. Tolerating a very good diet now and had a bowel movement. His labs show the bilirubin is almost normal and alkaline phosphatase is coming down also. OBJECTIVE: His abdomen is soft, just minimal tenderness in the left lower quadrant and around the JOSEPH drain. The JOSEPH drained about 140 mL the past 12 hours and has about 20 mL in the drain right now. PLAN: I think he can be transferred or discharged today on p.o. antibiotics. I told them he can keep the JOSEPH drain, but make sure it is emptied every 8-12 hours and record it. This drain will be [facility] when he goes there this coming week. In the meantime, he can have a low-residue diet and no lifting more than 10-15 pounds for the next 2 weeks. DICTATING PHYSICIAN: CAMILA WEBER M.D. [id number] PHY#: [id number] ID: [id number] JOB#: [id number] ACCT: [id number] cc: >
--- NOTE | 2016-12-07 14:02 | PDOC DISCHARGE SUMMARY ---
General - Admit/Disc Date/PCP Admission Date/Primary Care Provider: 11/28/16 14:46 Discharge Date: 12/07/16 - Discharge Diagnosis (1) Acute cholecystitis Is this a current diagnosis for this admission?: YesSummary: With bacteremia growing E. coli, Prevotella, strep anginousis, Veillenella sent home on Augmentin and Cipro 7 days (2) Sigmoid diverticulitis Is this a current diagnosis for this admission?: Yes (3) Anemia Is this a current diagnosis for this admission?: Yes (4) Essential hypertension Is this a current diagnosis for this admission?: Yes (5) Hypokalemia Is this a current diagnosis for this admission?: Yes (6) Metabolic acidosis Is this a current diagnosis for this admission?: Yes (7) Thrombocytopenia Is this a current diagnosis for this admission?: Yes (8) Elevated LFTs Is this a current diagnosis for this admission?: Yes (9) Pneumonia Is this a current diagnosis for this admission?: Yes - Additional Information Resuscitation Status: Full Code Discharge Diet: Regular Discharge Activity: Activity As Tolerated, No Lifting Over 10 Pounds Home Medications: Cholecalciferol (Vitamin D3) [Vitamin D3] 50,000 unit PO TU@1000 11/28/16 Gabapentin [Neurontin 300 mg Capsule] 300 mg PO Q8 11/28/16 Hydrocodone/Acetaminophen [Clover 10-325 mg Tablet] 1 tab PO QIDP PRN 11/28/16 Lisinopril [Prinivil] 20 mg PO DAILY 11/28/16 Pravastatin Sodium [Pravachol] 40 mg PO QHS 11/28/16 Amox Tr/Potassium Clavulanate [Augmentin 875-125 mg Tablet] 1 tab PO BID #14 tablet 12/07/16 Ciprofloxacin HCl [Cipro 500 mg Tablet] 500 mg PO BID #14 tablet 12/07/16 Oxycodone HCl [Oxy-Ir 5 mg Tablet] 10 mg PO Q4HP PRN #10 tablet 12/07/16 History of Present Illness History of Present Illness: MONAE SORTO is a 51 year old male history of hypertension who recently traveled to [place] attending his son's graduation who presents with a four-day history of nausea and vomiting. The patient had an episode of gastritis in [place] was given 1 dose of IV antibiotics at that time. The patient improved from that and then came back for over a month prior to development of symptoms. Patient had a 40 history of nausea and vomiting. The patient was initially thought to have diverticulitis and a CT scan did confirm that however on exam there was concern given right upper quadrant pain that he may have a cholecystitis and he is admitted for further workup. Hospital Course Hospital Course: 1-year-old [place] who presented with abdominal pain and nausea vomiting. Patient had a in the abdomen did show diverticulitis. Patient also had right upper quadrant pain and there was concern for cholangitis. The patient had a HIDA scan that showed no evidence for uptake in the gallbladder consistent with acute cholecystitis. The patient then underwent a cholecystectomy with removal of a necrotic gallbladder. The patient was initially put on vancomycin, gentamicin, imipenem. Patient had positive blood cultures that grew out E. coli , Prevotella, strep angenosis, Veilonella. The patient improved and did have a abdominal CT that showed pneumonia. The patient continued clinically to improve and had less drainage out of the JOSEPH drain in the right upper quadrant. Surgery felt that from their standpoint the patient was stable for discharge to home. I discussed the case with the infectious disease field service consultant at [facility] who recommended Augmentin for all of the bacterial cultures except for E. coli. Because of the E. coli, Cipro was added also. Patient will complete an additional 7 days of oral antibiotics in addition to what he has already received IV here. Patient will follow up with surgery as an outpatient for removal of the drain. Physical Exam Vital Signs: Temp Pulse Resp BP Pulse Ox 98.5 F 72 19 115/66 98 12/07/16 12:51 12/07/16 12:53 12/07/16 12:51 12/07/16 12:51 12/07/16 12:53 Intake & Output 12/06/16 12/07/16 12/08/16 06:59 06:59 06:59 Intake Total 2064 2889 Output Total 695 140 35 Balance 1369 2749 -35 Weight 72.1 kg General appearance: PRESENT: no acute distress Eye exam: PRESENT: conjunctiva pink. ABSENT: scleral icterus Mouth exam: PRESENT: moist, tongue midline Neck exam: ABSENT: JVD Respiratory exam: PRESENT: clear to auscultation tori. ABSENT: rales, rhonchi, wheezes Cardiovascular exam: PRESENT: RRR. ABSENT: diastolic murmur, rubs, systolic murmur GI/Abdominal exam: PRESENT: normal bowel sounds, soft, other - drain in place in the right upper quadrant. ABSENT: distended, guarding, mass, organolmegaly, rebound, tenderness Extremities exam: ABSENT: calf tenderness, clubbing, pedal edema Neurological exam: PRESENT: alert, awake, oriented to person, oriented to place , oriented to time, oriented to situation, CN II-XII grossly intact. ABSENT: motor sensory deficit Results Laboratory Results: 12/07/16 04:26 12/06/16 09:53 12/07/16 12/07/16 04:25 04:26 WBC 7.8 RBC 3.06 L Hgb 9.5 L Hct 28.2 L MCV 92 MCH 31.0 MCHC 33.7 RDW 14.6 H Plt Count 272 Seg Neutrophils % 66.7 Lymphocytes % 21.0 Monocytes % 10.3 Eosinophils % 1.3 Basophils % 0.7 Absolute Neutrophils 5.2 Absolute Lymphocytes 1.6 Absolute Monocytes 0.8 Absolute Eosinophils 0.1 Absolute Basophils 0.1 Total Bilirubin 1.1 AST 38 ALT 56 Alkaline Phosphatase 242 H Total Protein 5.3 L Albumin 2.5 L Impressions: Abdomen MRI 11/28/16 00:00 IMPRESSION: STABLE MILD INTRAHEPATIC BILIARY DUCT DILATATION WITH PERIODONTAL EDEMA SUGGESTIVE OF CHOLANGITIS GIVEN FINDINGS ON PRIOR HEPATOBILIARY SCAN. NO RETAINED STONE OR SIGNIFICANT DILATATION OF THE COMMON BILE DUCT IDENTIFIED. DIFFERENTIAL INCLUDES OCCULT CHOLANGIO CARCINOMA AT THE EDMOND HEPATIS WHICH MAY ONLY BE VISIBLE WITH DELAYED CONTRAST-ENHANCED IMAGING. STABLE MARKED CIRCUMFERENTIAL GALLBLADDER WALL THICKENING/EDEMA WITH MILD PERICHOLECYSTIC FLUID PRESUMABLY REPRESENTING CHRONIC CHOLECYSTITIS GIVEN PRIOR IMAGING FINDINGS. Acute Abdomen Series 11/28/16 03:30 IMPRESSION: NO RADIOGRAPHIC EVIDENCE FOR ACUTE ABDOMINAL DISEASE. Hepatobiliary Scan Nuclear Medicine 11/28/16 10:17 IMPRESSION: The findings are concerning for obstruction of the common bile duct. Clinical correlation. KUB X-Ray 11/29/16 06:00 IMPRESSION: NO RADIOGRAPHIC EVIDENCE FOR ACUTE ABDOMINAL DISEASE. Chest X-Ray 11/30/16 00:00 IMPRESSION: No significant interval change. Please also see CT, chest report from the same day. Chest/Abdomen CTA 11/30/16 00:00 IMPRESSION: 1. No evidence of pulmonary embolus. 2. Small right pleural effusion. Airspace disease in the right upper and lower lobes. In the appropriate clinical setting this is consistent with pneumonia. 3. Small amount of pneumoperitoneum status post recent cholecystectomy. Abdomen/Pelvis CT 12/04/16 00:00 IMPRESSION: 1. Subsegmental atelectasis versus infiltrate in each lower lobe. 2. There appears to be some degree of fatty infiltration of the liver with focal fatty sparing. 3. Sigmoid diverticulitis with apparent improvement since the earlier study. There is still a small amount of air in the mesenteric vein. 4. The gallbladder has been removed. 5. There is opacification the right lower quadrant that is of uncertain etiology and significance. It shows a density well above that of fluid. 6. No abscess is seen in the peritoneal cavity or elsewhere. 7. There is small amount of subcutaneous air anteriorly on the right likely associated with the catheter placement. Qualifiers PATEINT BEING DISCHARGED WITH ANY OF THE FOLLOWING DIAGNOSIS?: No Plan Discharge Plan: Is discharged home. Will follow up with surgery clinic this week. Follow with primary care in the next 1-2 weeks. Time Spent: Greater than 30 Minutes
== END 2016-12-07 13:22 | disposition home or self-care (01) | DRG 417 ==
LOC: ER 03:08 → EH 10:56 → UNDOADMIN 10:56 → EH 14:26 → 5 14:26 → 3W 21:23
PROC: 0F9440Z Drainage of Gallbladder with Drainage Device, Percutaneous Endoscopic Approach (ICD-10-PCS; 2016-11-29)
PROC: 0FT44ZZ Resection of Gallbladder, Percutaneous Endoscopic Approach (ICD-10-PCS; principal; 2016-11-29 10:00)
DX: K81.0 Acute cholecystitis (principal); J18.9 Pneumonia, unspecified organism; K83.1 Obstruction of bile duct; R78.81 Bacteremia; K57.32 Diverticulitis of large intestine without perforation or abscess without bleeding; E87.2 Acidosis; D64.9 Anemia, unspecified; E87.6 Hypokalemia; D69.6 Thrombocytopenia, unspecified; Z79.899 Other long term (current) drug therapy; I10 Essential (primary) hypertension; B96.20 Unspecified Escherichia coli [E. coli] as the cause of diseases classified elsewhere; B95.4 Other streptococcus as the cause of diseases classified elsewhere; B96.89 Other specified bacterial agents as the cause of diseases classified elsewhere; M19.90 Unspecified osteoarthritis, unspecified site; F32.9 Major depressive disorder, single episode, unspecified; F17.210 Nicotine dependence, cigarettes, uncomplicated
CPT/HCPCS: 36415; 71010; 71275; 74000; 74022; 74176; 74177; 74181; 78226; 790; 80048; 80053; 80061; 80074; 80076; 80170; 80202; 81001; 82272; 82550; 82565; 83605; 83690; 83735; 84100; 84132; 85025; 85027; 85610; 85730; 86900; 86901; 87040; 87045; 87077; 87086; 87186; 87205; 87493; 88304; 89055; 93005; 93010; 93306; 94640; 94799; 96365; 96375; 96376; 99285; A9537; J0131; J0330; J0743; J0744; J1100; J1170; J1335; J1580; J1650; J1885; J1956; J2250; J2270; J2405; J2704; J2930; J3010; J3370; J3480; J3490; J7030; J7040; J7060; J7620; Q9969; S0028